=== PATIENT | male | born 1945 | race Caucasian/White ===

== ENCOUNTER 2023-05-18 09:19 | Inpatient (IN) | payer OTHER ==
--- OUTSIDE RECORDS SUMMARY | 2023-05-18 09:23 | XMS REPORT | Continuity of Care Document ---
:1945 Author Organization [facility] t Address [address] [place] [address] [place] [id number] Care Team Providers Name Role Phone [facility], [facility] Primary Care Physician Unavailable Irma Abreu MD Attending Clinician Mirian Attending Clinician Unavailable Karo Graff MA Attending Clinician Unavailable CRUZ MONTANO Attending Clinician Unavailable Cruz Montano MD Attending Clinician Jayce Ocampo Attending Clinician [phone] Mirian Admitting Clinician Unavailable CRUZ MONTANO Admitting Clinician Unavailable IRMA ABREU Admitting Clinician Unavailable Payers Payer Name Policy Type Policy Number Effective Date Expiration Date S romy AETNA (MEDICARE [id number] 2021 REPLACEMENT PPO) 00:00:00 AETNA MANAGED [id number] 2021 MEDICARE PPO-ANGEL 00:00:00 Problems Condition Condition Condition Status Onset Resolution Last Treating Co mments Source Name Details Category Date Date Treatment Clinician Date Chronic Chronic Problem Active 2020-09 [place] renal Renal 1-09 [facility] insufficie Insufficie 00:00: Ur ology ncy ncy 00 At risk of At Risk of Problem Active 2019-09 [place] osteoporos Osteoporos 0-07 Me tro is is 00:00: Urology 00 PAD PAD Disease Active [facility] (periphera (periphera 6-02 st l artery l artery 00:00: Hospit a disease) disease) 00 l Osteoporos Osteoporos Problem Active 2018-09 H singh is is 0-02 [facility] 00:00: Urology 00 Essential Essential Disease Active Met hodi hypertensi hypertensi 5-21 st on on 00:00: Hospita 00 l History of History of Disease Active 2016-09 M ethodi aortic aortic 0-24 st valve valve 00:00: Hospita replacemen replacemen 00 l t t Carotid Carotid Disease Active 2016-09 [facility] artery artery 0-24 st disease disease 00:00: Hospita 00 l Aortic Aortic Disease Active [facility] valve valve 4-04 st disorder disorder 00:00: Hospit a 00 l Stenosis Stenosis Disease Active [facility]o di of carotid of carotid 4-04 st artery artery 00:00: Hospita 00 l Hypertensi Hypertensi Problem Active 2015-09 H singh ve ve 0-10 [facility] disorder Disorder 00:00: Urolog y 00 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 [facility] prostate Prostate 00:00: Urolog y Genuine Genuine Problem Active [place] stress Stress 3-21 [facility] incontinen Incontinen 00:00: Ur ology ce ce 00 Allergies, Adverse Reactions, Alerts Allergy Allergy Status Severity Reaction(s) Onset Inactive Treating Comm ents Source Name Type Date Date Clinician Metformi Propensi Active Method i n ty to 4-04 st adverse 00:00: Hospita reaction 00 l s to drug METFORMI DRUG Active High Rash Univers N INGREDI 1-30 ity of 00:00: [place] 00 Medical Branch Metformi Propensi Active Shortness of Univers n ty to Breath 1-30 ity of adverse 00:00: [place] reaction 00 Medical s to Branch drug Metformi Allergy Active Severe Rash [place] n to [facility] substanc Urology e Family History Family Member Diagnosis Comments Start Date Stop Date Source Natural mother [facility] Social History Social Habit Start Date Stop Date Quantity Comments Source Exposure to Not sure University of SARS-CoV-2 (event) [facility] Sexual orientation [facility] History of Social 2022-12-14 2022-12-[address] function 00:00:00 00:00:00 Hospital Alcohol intake 2020-03-31 2020-03-31 Current [facility] 00:00:00 00:00:00 non-drinker of Hospital alcohol (finding) Tobacco use and 2018-01-30 2018-01-30 Smokeless [facility] exposure 00:00:00 00:00:00 tobacco non-user Hospital Sex Assigned At [birth year] [facility] 00:00:00 00:00:00 Hospital Smoking Status Start Date Stop Date Source Never smoked tobacco [facility] Medications Ordered Filled Start Stop Current Ordering Indication Dosage Frequency Signature Comments Components Source Medication Medication Date Date Medication? Clinician (SIG) Name Name simvastatin Yes [id number] TAKE 1 [facility] (ZOCOR) 40 9-[address] mg tablet 00:00: MOUTH Hospita 00 EVERY DAY l AT NIGHT metoprolol Yes TAKE 1/2 Met hodi tartrate 8-[address] (LOPRESSOR) 00:00: MOUTH Hospi ta 50 mg 00 TWICE A l tablet DAY WITH FOOD clopidogreL Yes TAKE 1 Meth lucia (PLAVIX) 75 6-[address] mg tablet 00:00: MOUTH Hospita 00 EVERY DAY l aspirin 0 Yes TAKE 1 [facility] (ECOTRIN) 6-[address] 81 MG 00:00: MOUTH Hospita enteric 00 EVERY DAY l coated tablet amLODIPine- Yes 1{capsu QD Take 1 M ethodi benazepriL 5-22 le} capsule by st (LOTREL) 00:00: mouth Hospita 5-40 mg per 00 daily. l capsule insulin Yes 60U Q.5D Inject 0.6 Meth lucia detemir 1-17 mL (60 st U-100 10:59: Units Hospita (LEVEMIR 28 total) l U-100 under the INSULIN) skin 2 100 unit/mL (two) injection times a day. cyanocobala Yes 1000ug Take 1 Me thodi min 1-[address] (VITAMIN 10:59: (1,000 mcg Hos fredrick B-12) 1000 28 total) by l MCG tablet mouth. triptorelin Yes 1{dose} Q180D Inject 1 [facility] pamoate 1-[address] 22.5 mg 10:59: the Hospita suspension 28 shoulder, l for thigh, or reconstitut buttocks ion every 6 (six) months. simvastatin 2021-09- No [id number] TAKE 1 [facility] (ZOCOR) 40 2-05 09-[address] mg tablet 00:00: 00:00 MOUTH Hospit a 00 :00 EVERY DAY l AT NIGHT metoprolol 2021-09- No TAKE 1/2 Me thodi tartrate 2- 08-[address] (LOPRESSOR) 00:00: 00:00 MOUTH Hosp belnida 50 mg 00 :00 TWICE A l tablet DAY WITH FOOD amLODIPine- 2021-09- No TAKE 1 Met hodi benazepriL 1-14 05-[address] (LOTREL) 00:00: 00:00 MOUTH Hospita 5-40 mg per 00 :00 EVERY DAY l capsule clopidogreL 2022- No TAKE 1 Met hodi (PLAVIX) 75 7-14 06-[address] mg tablet 00:00: 00:00 MOUTH Hospit a 00 :00 EVERY DAY l aspirin 2022- No TAKE 1 [facility] (ECOTRIN) 6-16 06-[address] 81 MG 00:00: 00:00 MOUTH Hospita enteric 00 :00 EVERY DAY l coated tablet amLODIPine- 2021- No TAKE 1 Met hodi benazepriL 5-17 11-[address] (LOTREL) 00:00: 00:00 MOUTH Hospita 5-40 mg per 00 :00 EVERY DAY l capsule barium 2021- No [id number] 680g 680 g, Unive rs sulfate 01-03- Oral, ity of (LIQUID E-Z 14:30: 15:45 ONCE, 1 [place] BEST) 60 % 00 :00 dose, On Medi cony (w/v) oral Mon Branch suspension 01/03/22 at 680 g 0930, Routine Lupron Lupron No Lupron [place] 45 mg [place] 45 mg 12-28 [place] 45 [facility] (6 Month) (6 Month) 08:29: mg (6 Ur ology intramuscul intramuscul 55 Month) ar syringe ar syringe intramuscu kitInject kitInject lar 45 mg by 45 mg by syringe intramuscul intramuscul kitInject ar route. ar route. 45 mg by intramuscu lar route. simvastatin 2020-09- No [id number] TAKE 1 [facility] (ZOCOR) 40 2-15 08-[address] mg tablet 00:00: 00:00 MOUTH Hospit a 00 :00 EVERY DAY l AT NIGHT metoprolol 2020-09- No TAKE 1/2 Me thodi tartrate 2-06 08-[address] (LOPRESSOR) 00:00: 00:00 MOUTH Hosp belinda 50 mg 00 :00 TWICE A l tablet DAY WITH FOOD celecoxib 2016-09 Yes 200mg Take 1 Unive rs (CELEBREX) 1-20 capsule by ity of 200 mg 00:00: mouth [place] capsule 00 daily. Medical Branch celecoxib 2016-09 Yes 200mg Take 1 Unive rs (CELEBREX) 1-20 capsule by ity of 200 mg 00:00: mouth [place] capsule 00 daily. Medical Branch brimonidine 2016-09 Yes INSTILL 1 U nivers 0.2 % 0-21 DROP INTO ity of ophthalmic 00:00: BOTH EYES [place] solution 00 AT BEDTIME Medic al Branch brimonidine 2016-09 Yes INSTILL 1 U nivers 0.2 % 0-21 DROP INTO ity of ophthalmic 00:00: BOTH EYES [place] solution 00 AT BEDTIME Medic al Branch alendronate 2016-09 Yes TAKE 1 Univ ers 70 mg 0-11 TABLET BY ity of tablet 00:00: MOUTH [place] 00 EVERY WEEK Medical Branch alendronate 2016-09 Yes TAKE 1 Univ ers 70 mg 0-11 TABLET BY ity of tablet 00:00: MOUTH [place] 00 EVERY WEEK Medical Branch flu vaccine 2016-09 Yes INJECT 1 Un janeth 64 yrs and 0-09 DOSE BY ity of up 180 00:00: [facility] [place] mcg/0.5 mL 00 Medical syringe Branch BD 2016-09 Yes 10mg Take 10 mg Univers ULTRAFINE 0-09 by mouth. ity o f III MINI 00:00: [place] PEN 31 00 Medical gauge x Branch 316" Ndle flu vaccine 2016-09 Yes INJECT 1 Un janeth 64 yrs and 0-09 DOSE BY ity of up 180 00:00: RPH [place] mcg/0.5 mL 00 Medical syringe Branch BD 2016-09 Yes 10mg Take 10 mg Univers ULTRAFINE 0-09 by mouth. ity o f III MINI 00:00: [place] PEN 31 00 Medical gauge x Branch 3/16" Ndle latanoprost Yes INSTILL Met hodi (XALATAN) 2-[address] 0.005 % 00:00: IN BOTH Hospita ophthalmic 00 EYES AT solution BEDTIME amlodipine- Yes 1{capsu Take 1 U nivers benazepril 2-01 le} capsule by ity of 5-40 mg per 09:13: mouth [place] capsule 12 daily. Medical Branch clopidogrel Yes 75mg Take 75 mg Univers 75 mg 2-01 by mouth ity of tablet 09:13: daily. [place] [address] Medical Branch metoprolol Yes 25mg Take 25 mg U nivers tartrate 50 2-01 by mouth 2 it y of mg tablet 09:13: (two) [place] [address] times Medical daily. Branch simvastatin Yes 40mg Take 40 mg Univers 40 mg 2-01 by mouth ity of tablet 09:13: at [place] [address] bedtime. Medical Branch aspirin 81 Yes 81mg Take 81 mg U nivers mg EC 2-01 by mouth ity of tablet 09:13: daily. [place] [address] Medical Branch lubiproston Yes 8ug Take 8 mcg Univers e 8 mcg 2-01 by mouth ity of capsule 09:13: daily. [place] [address] Medical Branch latanoprost Yes 1[drp] Place 1 U nivers 0.005 % 2-01 Drop in ity of ophthalmic 09:13: both eyes [place] drops 12 every Medical evening. Branch brinzolamid Yes 1[drp] Place 1 U nivers e-brimonidi 2-01 Drop in ity o f ne 1-0.2 % 09:13: each eye [place] ophthalmic 12 daily. Medical drops Branch vitamin Yes 1000ug Take 1,000 Un janeth B-12 2-01 mcg by ity of (VITAMIN 09:13: mouth [place] B-12) 1,000 12 daily. Medica l mcg tablet Branch Liraglutide Yes 1.8mg inject 1.8 Univers (VICTOZA 2-01 mg under ity of 3-ANGELIA) 0.6 09:13: the skin [place] as mg/0.1 mL 12 daily. Medical (18 mg/3 Branch mL) injection insulin Yes 25U inject 25 Unive rs detemir 2-01 Units ity of (LEVEMIR) 09:13: under the [place] as 100 unit/mL 12 skin 2 Medica l injection (two) Branch times daily. Triptorelin Yes 1{dose} 1 Dose by Univers Pamoate 2-01 Intramuscu ity of (TRELSTAR) 09:13: lar route [place] 22.5 mg/2 12 once now. Medic al mL Syrg Indication Branch s: Pt takes once every 6 months amlodipine- Yes 1{capsu Take 1 U nivers benazepril 2-01 le} capsule by ity of 5-40 mg per 09:13: mouth [place] capsule 12 daily. Medical Branch clopidogrel Yes 75mg Take 75 mg Univers 75 mg 2-01 by mouth ity of tablet 09:13: daily. [place] [address] Medical Branch metoprolol Yes 25mg Take 25 mg U nivers tartrate 50 2-01 by mouth 2 it y of mg tablet 09:13: (two) [place] 12 times Medical daily. Branch simvastatin Yes 40mg Take 40 mg Univers 40 mg 2-01 by mouth ity of tablet 09:13: at [place] [address] bedtime. Medical Branch aspirin 81 Yes 81mg Take 81 mg U nivers mg EC 2-01 by mouth ity of tablet 09:13: daily. [place] [address] Medical Branch lubiproston Yes 8ug Take 8 mcg Univers e 8 mcg 2-01 by mouth ity of capsule 09:13: daily. [place] [address] Medical Branch latanoprost Yes 1[drp] Place 1 U nivers 0.005 % 2-01 Drop in ity of ophthalmic 09:13: both eyes [place] drops 12 every Medical evening. Branch brinzolamid Yes 1[drp] Place 1 U nivers e-brimonidi 2-01 Drop in ity o f ne 1-0.2 % 09:13: each eye [place] as ophthalmic 12 daily. Medical drops Branch vitamin Yes 1000ug Take 1,000 Un janeth B-12 2-01 mcg by ity of (VITAMIN 09:13: mouth [place] B-12) 1,000 12 daily. Medica l mcg tablet Branch Liraglutide Yes 1.8mg inject 1.8 Univers (VICTOZA 2-01 mg under ity of 3-ANGELIA) 0.6 09:13: the skin [place] as mg/0.1 mL 12 daily. Medical (18 mg/3 Branch mL) injection insulin Yes 25U inject 25 Unive rs detemir 2-01 Units ity of (LEVEMIR) 09:13: under the [place] as 100 unit/mL 12 skin 2 Medica l injection (two) Branch times daily. Triptorelin Yes 1{dose} 1 Dose by Univers Pamoate 2-01 Intramuscu ity of (TRELSTAR) 09:13: lar route [place] 22.5 mg/2 12 once now. Medic al mL Syrg Indication Branch s: Pt takes once every 6 months VICTOZA Yes INJECT Methodi 3-ANGELIA 0.6 1-[address] mg/0.1 mL 00:00: SKIN 1.2MG Ho spita (18 mg/3 00 DAILY l mL) pen injector alendronate alendronate No 1 Q1W alendronat [place] 70 mg 70 mg e 70 mg [facility] tablet Take tablet Take tablet Urology 1 tablet 1 tablet Take 1 every week every week tablet by oral by oral every week route. route. by oral route. amlodipine amlodipine No amlodipine [place] 5 5 5 [facility] mg-benazepr mg-benazepr mg-benazep Urology il 40 mg il 40 mg ril 40 mg capsule capsule capsule TAKE 1 TAKE 1 TAKE 1 CAPSULE BY CAPSULE BY CAPSULE BY MOUTH EVERY MOUTH EVERY MOUTH DAY DAY EVERY DAY aspirin 81 aspirin 81 No aspirin 81 [place] mg mg mg [facility] tablet,vish tablet,vish tablet,del Urology yed release yed release ayed TAKE 1 TAKE 1 release TABLET BY TABLET BY TAKE 1 MOUTH EVERY MOUTH EVERY TABLET BY DAY DAY MOUTH EVERY DAY clopidogrel clopidogrel No clopidogre [place] 75 mg 75 mg l 75 mg [facility] tablet TAKE tablet TAKE tablet Urology 1 TABLET BY 1 TABLET BY TAKE 1 MOUTH EVERY MOUTH EVERY TABLET BY DAY DAY MOUTH EVERY DAY insulin insulin No 60unit( BID insulin [place] ston glargine glargine s) glargine Met ro (U-100) 100 (U-100) 100 (U-100) Urology unit/mL (3 unit/mL (3 100 mL) mL) unit/mL (3 subcutaneou subcutaneou mL) s pen s pen subcutaneo Inject 60 Inject 60 us pen units twice units twice Inject 60 a day by a day by units subcutaneou subcutaneou twice a s route. s route. day by subcutaneo us route. latanoprost latanoprost No latanopros [place] 0.005 % eye 0.005 % eye t 0.005 % [facility] drops drops eye drops Urology INSTILL 1 INSTILL 1 INSTILL 1 DROP INTO DROP INTO DROP INTO BOTH EYES BOTH EYES BOTH EYES AT BEDTIME AT BEDTIME AT BEDTIME lorazepam 1 lorazepam 1 No lorazepam [place] mg tablet mg tablet 1 mg [facility] tablet Urology Lupron Lupron No 45mg Lupron [place] 45 mg [place] 45 mg [place] 45 [facility] (6 Month) (6 Month) mg (6 Urol ogy intramuscul intramuscul Month) ar syringe ar syringe intramuscu kit Inject kit Inject lar 45 mg by 45 mg by syringe intramuscul intramuscul kit Inject ar route. ar route. 45 mg by intramuscu lar route. metoprolol metoprolol No metoprolol [place] tartrate 50 tartrate 50 tartrate [facility] mg tablet mg tablet 50 mg Urol ogy TAKE 1/2 TAKE 1/2 tablet TABLET BY TABLET BY TAKE 1/2 MOUTH TWICE MOUTH TWICE TABLET BY A DAY WITH A DAY WITH MOUTH FOOD FOOD TWICE A DAY WITH FOOD simvastatin simvastatin No simvastati [place] 40 mg 40 mg n 40 mg [facility] tablet TAKE tablet TAKE tablet Urology 1 TABLET BY 1 TABLET BY TAKE 1 MOUTH EVERY MOUTH EVERY TABLET BY DAY AT DAY AT MOUTH NIGHT NIGHT EVERY DAY AT NIGHT sodium sodium No sodium [place] fluoride fluoride fluoride Met ro 1.1 % 1.1 % 1.1 % Urology dental dental dental paste paste paste TRUEplus TRUEplus No TRUEplus [place] ston Lancets 33 Lancets 33 Lancets 33 [facility] gauge USE 1 gauge USE 1 gauge USE Urology EVERY DAY EVERY DAY 1 EVERY DAY Victoza Victoza No Victoza [place] 2-Angelia 0.6 2-Angelia 0.6 2-Angelia 0.6 [facility] mg/0.1 mL mg/0.1 mL mg/0.1 mL Urology (18 mg/3 (18 mg/3 (18 mg/3 mL) mL) mL) subcutaneou subcutaneou subcutaneo s pen s pen us pen injector injector injector INJECT 1.2 INJECT 1.2 INJECT 1.2 MG UNDER MG UNDER MG UNDER THE SKIN THE SKIN THE SKIN ONCE DAILY ONCE DAILY ONCE DAILY alendronate alendronate No alendronat [place] 70 mg 70 mg e 70 mg [facility] tablet TAKE tablet TAKE tablet Urology 1 TABLET BY 1 TABLET BY TAKE 1 MOUTH EVERY MOUTH EVERY TABLET BY WEEK WEEK MOUTH EVERY WEEK amlodipine amlodipine No amlodipine [place] 5 mg tablet 5 mg tablet 5 mg M etro TAKE 1 TAKE 1 tablet Urology TABLET BY TABLET BY TAKE 1 MOUTH EVERY MOUTH EVERY TABLET BY DAY IN THE DAY IN THE MOUTH MORNING MORNING EVERY DAY IN THE MORNING amlodipine amlodipine No amlodipine [place] 5 5 5 [facility] mg-benazepr mg-benazepr mg-benazep Urology il 40 mg il 40 mg ril 40 mg capsule capsule capsule TAKE 1 TAKE 1 TAKE 1 CAPSULE BY CAPSULE BY CAPSULE BY MOUTH EVERY MOUTH EVERY MOUTH DAY DAY EVERY DAY aspirin 81 aspirin 81 No aspirin 81 [place] mg mg mg [facility] tablet,vish tablet,vish tablet,del Urology yed release yed release ayed TAKE 1 TAKE 1 release TABLET BY TABLET BY TAKE 1 MOUTH EVERY MOUTH EVERY TABLET BY DAY DAY MOUTH EVERY DAY clopidogrel clopidogrel No clopidogre [place] 75 mg 75 mg l 75 mg [facility] tablet TAKE tablet TAKE tablet Urology 1 TABLET BY 1 TABLET BY TAKE 1 MOUTH EVERY MOUTH EVERY TABLET BY DAY DAY MOUTH EVERY DAY Farxiga 5 Farxiga 5 No 1 Q1D Farxiga 5 [place] mg tablet mg tablet mg tablet [facility] Take 1 Take 1 Take 1 Urology tablet tablet tablet every day every day every day by oral by oral by oral route. route. route. insulin insulin No 30unit( BID insulin [place] ston glargine glargine s) glargine Met ro (U-100) 100 (U-100) 100 (U-100) Urology unit/mL (3 unit/mL (3 100 mL) mL) unit/mL (3 subcutaneou subcutaneou mL) s pen s pen subcutaneo Inject 30 Inject 30 us pen units twice units twice Inject 30 a day by a day by units subcutaneou subcutaneou twice a s route. s route. day by subcutaneo us route. latanoprost latanoprost No latanopros [place] 0.005 % eye 0.005 % eye t 0.005 % [facility] drops drops eye drops Urology INSTILL 1 INSTILL 1 INSTILL 1 DROP INTO DROP INTO DROP INTO BOTH EYES BOTH EYES BOTH EYES AT BEDTIME AT BEDTIME AT BEDTIME lorazepam 1 lorazepam 1 No lorazepam [place] mg tablet mg tablet 1 mg [facility] tablet Urology Lupron Lupron No 45mg Lupron [place] 45 mg [place] 45 mg [place] 45 [facility] (6 Month) (6 Month) mg (6 Urol ogy intramuscul intramuscul Month) ar syringe ar syringe intramuscu kit Inject kit Inject lar 45 mg by 45 mg by syringe intramuscul intramuscul kit Inject ar route. ar route. 45 mg by intramuscu lar route. metoprolol metoprolol No metoprolol [place] tartrate 50 tartrate 50 tartrate [facility] mg tablet mg tablet 50 mg Urol ogy TAKE 1/2 TAKE 1/2 tablet TABLET BY TABLET BY TAKE 1/2 MOUTH TWICE MOUTH TWICE TABLET BY A DAY WITH A DAY WITH MOUTH FOOD FOOD TWICE A DAY WITH FOOD OneTouch OneTouch No OneTouch [place] UltraSoft UltraSoft UltraSoft [place] Lancets Lancets Lancets Urolog y TEST BLOOD TEST BLOOD TEST BLOOD SUGAR TWICE SUGAR TWICE SUGAR A DAY A DAY TWICE A DAY OneTouch OneTouch No OneTouch [place] st[place] Verio test Verio test Verio test [facility] strips TEST strips TEST strips Urology TWICE A DAY TWICE A DAY TEST TWICE A DAY Ozempic Ozempic No .5mg Q1W Ozempic [place] 0.25 mg or 0.25 mg or 0.25 mg or [facility] 0.5 mg (2 0.5 mg (2 0.5 mg (2 Urology mg/1.5 mL) mg/1.5 mL) mg/1.5 mL) subcutaneou subcutaneou subcutaneo s pen s pen us pen injector injector injector Inject 0.5 Inject 0.5 Inject 0.5 mg every mg every mg every week by week by week by subcutaneou subcutaneou subcutaneo s route. s route. us route. simvastatin simvastatin No simvastati [place] 40 mg 40 mg n 40 mg [place] tablet TAKE tablet TAKE tablet Urology 1 TABLET BY 1 TABLET BY TAKE 1 MOUTH EVERY MOUTH EVERY TABLET BY DAY AT DAY AT MOUTH NIGHT NIGHT EVERY DAY AT NIGHT TRUEplus TRUEplus No TRUEplus [place] Lancets 33 Lancets 33 Lancets 33 [facility] gauge USE 1 gauge USE 1 gauge USE Urology EVERY DAY EVERY DAY 1 EVERY DAY Uloric 40 Uloric 40 No 1 Q1D [facility] 40 [place] mg tablet mg tablet mg tablet [facility] Take 1 Take 1 Take 1 Urology tablet tablet tablet every day every day every day by oral by oral by oral route. route. route. alendronate alendronate No alendronat [place] 70 mg 70 mg e 70 mg [facility] tablet TAKE tablet TAKE tablet Urology 1 TABLET BY 1 TABLET BY TAKE 1 MOUTH ONE MOUTH ONE TABLET BY TIME PER TIME PER MOUTH ONE WEEK WEEK TIME PER WEEK amlodipine amlodipine No amlodipine [place] 5 5 5 [facility] mg-benazepr mg-benazepr mg-benazep Urology il 40 mg il 40 mg ril 40 mg capsule capsule capsule TAKE 1 TAKE 1 TAKE 1 CAPSULE BY CAPSULE BY CAPSULE BY MOUTH EVERY MOUTH EVERY MOUTH DAY DAY EVERY DAY aspirin 81 aspirin 81 No aspirin 81 [place] mg mg mg [facility] tablet,vish tablet,vish tablet,del Urology yed release yed release ayed TAKE 1 TAKE 1 release TABLET BY TABLET BY TAKE 1 MOUTH EVERY MOUTH EVERY TABLET BY DAY DAY MOUTH EVERY DAY clopidogrel clopidogrel No clopidogre [place] 75 mg 75 mg l 75 mg [facility] tablet TAKE tablet TAKE tablet Urology 1 TABLET BY 1 TABLET BY TAKE 1 MOUTH EVERY MOUTH EVERY TABLET BY DAY DAY MOUTH EVERY DAY erythromyci erythromyci No erythromyc [place] n 5 mg/gram n 5 mg/gram in 5 M etro (0.5 %) eye (0.5 %) eye mg/gram Urology ointment ointment (0.5 %) APPLY AT APPLY AT eye BEDTIME FOR BEDTIME FOR ointment 1 WEEK TO 1 WEEK TO APPLY AT EYELIDS EYELIDS BEDTIME FOR 1 WEEK TO EYELIDS famotidine famotidine No famotidine [place] 40 mg 40 mg 40 mg [facility] tablet TAKE tablet TAKE tablet Urology 1 TABLET BY 1 TABLET BY TAKE 1 MOUTH EVERY MOUTH EVERY TABLET BY DAY IN THE DAY IN THE MOUTH MORNING MORNING EVERY DAY IN THE MORNING insulin insulin No 30unit( BID insulin [place] glargine glargine s) glargine Met ro (U-100) 100 (U-100) 100 (U-100) Urology unit/mL (3 unit/mL (3 100 mL) mL) unit/mL (3 subcutaneou subcutaneou mL) s pen s pen subcutaneo Inject 30 Inject 30 us pen units twice units twice Inject 30 a day by a day by units subcutaneou subcutaneou twice a s route. s route. day by subcutaneo us route. latanoprost latanoprost No latanopros [place] 0.005 % eye 0.005 % eye t 0.005 % [facility] drops drops eye drops Urology INSTILL 1 INSTILL 1 INSTILL 1 DROP INTO DROP INTO DROP INTO BOTH EYES BOTH EYES BOTH EYES AT BEDTIME AT BEDTIME AT BEDTIME lorazepam 1 lorazepam 1 No lorazepam [place] mg tablet mg tablet 1 mg [facility] tablet Urology Lupron Lupron No 45mg Lupron [place] 45 mg [place] 45 mg [place] 45 [facility] (6 Month) (6 Month) mg (6 Urol ogy intramuscul intramuscul Month) ar syringe ar syringe intramuscu kit Inject kit Inject lar 45 mg by 45 mg by syringe intramuscul intramuscul kit Inject ar route. ar route. 45 mg by intramuscu lar route. metoprolol [facility] [place] tartrate 50 tartrate 50 tartrate [facility] mg tablet mg tablet 50 mg Urol ogy TAKE 1/2 TAKE 1/2 tablet TABLET BY TABLET BY TAKE 1/2 MOUTH TWICE MOUTH TWICE TABLET BY A DAY WITH A DAY WITH MOUTH FOOD FOOD TWICE A DAY WITH FOOD OneTouch OneTouch No OneTouch [place] UltraSoft UltraSoft UltraSoft [place] Lancets Lancets Lancets Urolog y TEST BLOOD TEST BLOOD TEST BLOOD SUGAR TWICE SUGAR TWICE SUGAR A DAY A DAY TWICE A DAY OneTouch OneTouch No OneTouch [place] st[place] Verio test Verio test Verio test [facility] strips TEST strips TEST strips Urology TWICE A DAY TWICE A DAY TEST TWICE A DAY Ozempic Ozempic No .5mg Q1W Ozempic [place] 0.25 mg or 0.25 mg or 0.25 mg or [facility] 0.5 mg (2 0.5 mg (2 0.5 mg (2 Urology mg/1.5 mL) mg/1.5 mL) mg/1.5 mL) subcutaneou subcutaneou subcutaneo s pen s pen us pen injector injector injector Inject 0.5 Inject 0.5 Inject 0.5 mg every mg every mg every week by week by week by subcutaneou subcutaneou subcutaneo s route. s route. us route. QuickVue QuickVue No QuickVue [place] ston At-Home At-Home At-Home [facility] COVID-19 COVID-19 COVID-19 Uro logy Test kit Test kit Test kit USE USE USE DIRECTED DIRECTED DIRECTED simvastatin simvastatin No simvastati [place] 40 mg 40 mg n 40 mg [facility] tablet TAKE tablet TAKE tablet Urology 1 TABLET BY 1 TABLET BY TAKE 1 MOUTH EVERY MOUTH EVERY TABLET BY DAY AT DAY AT MOUTH NIGHT NIGHT EVERY DAY AT NIGHT sodium sodium No sodium [place] fluoride fluoride fluoride Met ro 1.1 % 1.1 % 1.1 % Urology dental dental dental paste BRUSH paste BRUSH paste FOR 1 MIN FOR 1 MIN BRUSH FOR AND RINCE AND RINCE 1 MIN AND TWICE DAILY TWICE DAILY RINCE TWICE DAILY TRUEplus TRUEplus No TRUEplus [place] Lancets 33 Lancets 33 Lancets 33 [facility] gauge USE 1 gauge USE 1 gauge USE Urology EVERY DAY EVERY DAY 1 EVERY DAY Uloric 40 Uloric 40 No 1 Q1D Uloric 40 [place] mg tablet mg tablet mg tablet [facility] Take 1 Take 1 Take 1 Urology tablet tablet tablet every day every day every day by oral by oral by oral route. route. route. alendronate alendronate No 1 Q1W alendronat [place] 70 mg 70 mg e 70 mg [facility] tablet Take tablet Take tablet Urology 1 tablet 1 tablet Take 1 every week every week tablet by oral by oral every week route. route. by oral route. amlodipine amlodipine No amlodipine [place] 5 5 5 [facility] mg-benazepr mg-benazepr mg-benazep Urology il 40 mg il 40 mg ril 40 mg capsule capsule capsule TAKE 1 TAKE 1 TAKE 1 CAPSULE BY CAPSULE BY CAPSULE BY MOUTH EVERY MOUTH EVERY MOUTH DAY DAY EVERY DAY aspirin 81 aspirin 81 No aspirin 81 [place] mg mg mg [facility] tablet,vish tablet,vish tablet,del Urology yed release yed release ayed TAKE 1 TAKE 1 release TABLET BY TABLET BY TAKE 1 MOUTH EVERY MOUTH EVERY TABLET BY DAY DAY MOUTH EVERY DAY clopidogrel clopidogrel No clopidogre [place] 75 mg 75 mg l 75 mg [facility] tablet TAKE tablet TAKE tablet Urology 1 TABLET BY 1 TABLET BY TAKE 1 MOUTH EVERY MOUTH EVERY TABLET BY DAY DAY MOUTH EVERY DAY Eligard 45 Eligard 45 No 45mg Eligard 45 [place] mg (6 mg (6 mg (6 [facility] month) month) month) Urology subcutaneou subcutaneou subcutaneo s syringe s syringe us syringe Inject 45 Inject 45 Inject 45 mg by mg by mg by subcutaneou subcutaneou subcutaneo s route. s route. us route. famotidine famotidine No famotidine [place] 40 mg 40 mg 40 mg [facility] tablet TAKE tablet TAKE tablet Urology 1 TABLET BY 1 TABLET BY TAKE 1 MOUTH EVERY MOUTH EVERY TABLET BY DAY IN THE DAY IN THE MOUTH MORNING MORNING EVERY DAY IN THE MORNING insulin insulin No 30unit( BID insulin Hector ston glargine glargine s) glargine Met ro (U-100) 100 (U-100) 100 (U-100) Urology unit/mL (3 unit/mL (3 100 mL) mL) unit/mL (3 subcutaneou subcutaneou mL) s pen s pen subcutaneo Inject 30 Inject 30 us pen units twice units twice Inject 30 a day by a day by units subcutaneou subcutaneou twice a s route. s route. day by subcutaneo us route. latanoprost latanoprost No latanopros [place] 0.005 % eye 0.005 % eye t 0.005 % [facility] drops drops eye drops Urology INSTILL 1 INSTILL 1 INSTILL 1 DROP INTO DROP INTO DROP INTO BOTH EYES BOTH EYES BOTH EYES AT BEDTIME AT BEDTIME AT BEDTIME metoprolol metoprolol No metoprolol [place] tartrate 50 tartrate 50 tartrate [facility] mg tablet mg tablet 50 mg Urol ogy TAKE 1/2 TAKE 1/2 tablet TABLET BY TABLET BY TAKE 1/2 MOUTH TWICE MOUTH TWICE TABLET BY A DAY WITH A DAY WITH MOUTH FOOD FOOD TWICE A DAY WITH FOOD OneTouch OneTouch No OneTouch Hector ston UltraSoft UltraSoft UltraSoft [facility] Lancets Lancets Lancets Urolog y TEST BLOOD TEST BLOOD TEST BLOOD SUGAR TWICE SUGAR TWICE SUGAR A DAY A DAY TWICE A DAY OneTouch OneTouch No OneTouch [place] ston Verio test Verio test Verio test [facility] strips TEST strips TEST strips Urology TWICE A DAY TWICE A DAY TEST TWICE A DAY Ozempic Ozempic No .5mg Q1W Ozempic [place] 0.25 mg or 0.25 mg or 0.25 mg or [facility] 0.5 mg (2 0.5 mg (2 0.5 mg (2 Urology mg/1.5 mL) mg/1.5 mL) mg/1.5 mL) subcutaneou subcutaneou subcutaneo s pen s pen us pen injector injector injector Inject 0.5 Inject 0.5 Inject 0.5 mg every mg every mg every week by week by week by subcutaneou subcutaneou subcutaneo s route. s route. us route. simvastatin simvastatin No simvastati [place] 40 mg 40 mg n 40 mg [facility] tablet TAKE tablet TAKE tablet Urology 1 TABLET BY 1 TABLET BY TAKE 1 MOUTH EVERY MOUTH EVERY TABLET BY DAY AT DAY AT MOUTH NIGHT NIGHT EVERY DAY AT NIGHT sodium sodium No sodium [place] fluoride fluoride fluoride Met ro 1.1 % 1.1 % 1.1 % Urology dental dental dental paste BRUSH paste BRUSH paste FOR 1 MIN FOR 1 MIN BRUSH FOR AND RINCE AND RINCE 1 MIN AND TWICE DAILY TWICE DAILY RINCE TWICE DAILY TRUEplus TRUEplus No TRUEplus H[place] ston Lancets 33 Lancets 33 Lancets 33 [facility] gauge USE 1 gauge USE 1 gauge USE Urology EVERY DAY EVERY DAY 1 EVERY DAY Vyzulta Vyzulta No Vyzulta [place] 0.024 % eye 0.024 % eye 0.024 % [facility] drops drops eye drops Urology INSTILL 1 INSTILL 1 INSTILL 1 DROP INTO DROP INTO DROP INTO RIGHT EYE RIGHT EYE RIGHT EYE AT BEDTIME AT BEDTIME AT BEDTIME alendronate alendronate No 1 Q1W alendronat [place] 70 mg 70 mg e 70 mg [facility] tablet Take tablet Take tablet Urology 1 tablet 1 tablet Take 1 every week every week tablet by oral by oral every week route. route. by oral route. amlodipine amlodipine No amlodipine [place] 5 5 5 [facility] mg-benazepr mg-benazepr mg-benazep Urology il 40 mg il 40 mg ril 40 mg capsule capsule capsule TAKE 1 TAKE 1 TAKE 1 CAPSULE BY CAPSULE BY CAPSULE BY MOUTH EVERY MOUTH EVERY MOUTH DAY DAY EVERY DAY aspirin 81 aspirin 81 No aspirin 81 [place] mg mg mg [facility] tablet,vish tablet,vish tablet,del Urology yed release yed release ayed TAKE 1 TAKE 1 release TABLET BY TABLET BY TAKE 1 MOUTH EVERY MOUTH EVERY TABLET BY DAY DAY MOUTH EVERY DAY clopidogrel clopidogrel No clopidogre [place] 75 mg 75 mg l 75 mg [facility] tablet TAKE tablet TAKE tablet Urology 1 TABLET BY 1 TABLET BY TAKE 1 MOUTH EVERY MOUTH EVERY TABLET BY DAY DAY MOUTH EVERY DAY erythromyci erythromyci No erythromyc [place] n 5 mg/gram n 5 mg/gram in 5 M etro (0.5 %) eye (0.5 %) eye mg/gram Urology ointment ointment (0.5 %) eye ointment insulin insulin No 60unit( BID insulin [place] ston glargine glargine s) glargine Met ro (U-100) 100 (U-100) 100 (U-100) Urology unit/mL (3 unit/mL (3 100 mL) mL) unit/mL (3 subcutaneou subcutaneou mL) s pen s pen subcutaneo Inject 60 Inject 60 us pen units twice units twice Inject 60 a day by a day by units subcutaneou subcutaneou twice a s route. s route. day by subcutaneo us route. latanoprost latanoprost No latanopros [place] 0.005 % eye 0.005 % eye t 0.005 % [facility] drops drops eye drops Urology INSTILL 1 INSTILL 1 INSTILL 1 DROP INTO DROP INTO DROP INTO BOTH EYES BOTH EYES BOTH EYES AT BEDTIME AT BEDTIME AT BEDTIME Lupron Lupron No 45mg Lupron [place] 45 mg [place] 45 mg [place] 45 Metro (6 Month) (6 Month) mg (6 Urol ogy intramuscul intramuscul Month) ar syringe ar syringe intramuscu kit Inject kit Inject lar 45 mg by 45 mg by syringe intramuscul intramuscul kit Inject ar route. ar route. 45 mg by intramuscu lar route. metoprolol metoprolol No metoprolol [place] tartrate 50 tartrate 50 tartrate [facility] mg tablet mg tablet 50 mg Urol ogy TAKE 1/2 TAKE 1/2 tablet TABLET BY TABLET BY TAKE 1/2 MOUTH TWICE MOUTH TWICE TABLET BY A DAY WITH A DAY WITH MOUTH FOOD FOOD TWICE A DAY WITH FOOD simvastatin simvastatin No simvastati [place] 40 mg 40 mg n 40 mg [facility] tablet TAKE tablet TAKE tablet Urology 1 TABLET BY 1 TABLET BY TAKE 1 MOUTH EVERY MOUTH EVERY TABLET BY DAY AT DAY AT MOUTH NIGHT NIGHT EVERY DAY AT NIGHT TRUEplus TRUEplus No TRUEplus H[place] st[place] Lancets 33 Lancets 33 Lancets 33 [facility] gauge USE 1 gauge USE 1 gauge USE Urology EVERY DAY EVERY DAY 1 EVERY DAY Victoza Victoza No Victoza [place] 2-Angelia 0.6 2-Angelia 0.6 2-Angelia 0.6 [facility] mg/0.1 mL mg/0.1 mL mg/0.1 mL Urology (18 mg/3 (18 mg/3 (18 mg/3 mL) mL) mL) subcutaneou subcutaneou subcutaneo s pen s pen us pen injector injector injector INJECT 1.2 INJECT 1.2 INJECT 1.2 MG UNDER MG UNDER MG UNDER THE SKIN THE SKIN THE SKIN ONCE DAILY ONCE DAILY ONCE DAILY alendronate alendronate No 1 Q1W alendronat [place] 70 mg 70 mg e 70 mg [facility] tablet Take tablet Take tablet Urology 1 tablet 1 tablet Take 1 every week every week tablet by oral by oral every week route. route. by oral route. amlodipine amlodipine No amlodipine [place] 5 5 5 [facility] mg-benazepr mg-benazepr mg-benazep Urology il 40 mg il 40 mg ril 40 mg capsule capsule capsule TAKE 1 TAKE 1 TAKE 1 CAPSULE BY CAPSULE BY CAPSULE BY MOUTH EVERY MOUTH EVERY MOUTH DAY DAY EVERY DAY aspirin 81 aspirin 81 No aspirin 81 [place] mg mg mg [facility] tablet,vish tablet,vish tablet,del Urology yed release yed release ayed TAKE 1 TAKE 1 release TABLET BY TABLET BY TAKE 1 MOUTH EVERY MOUTH EVERY TABLET BY DAY DAY MOUTH EVERY DAY clopidogrel clopidogrel No clopidogre [place] 75 mg 75 mg l 75 mg [facility] tablet TAKE tablet TAKE tablet Urology 1 TABLET BY 1 TABLET BY TAKE 1 MOUTH EVERY MOUTH EVERY TABLET BY DAY DAY MOUTH EVERY DAY hydrocodone hydrocodone No hydrocodon [place] 5 5 e 5 [facility] mg-acetamin mg-acetamin mg-acetami Urology ophen 325 ophen 325 nophen 325 mg tablet mg tablet mg tablet insulin insulin No 60unit( BID insulin H[place] ston glargine glargine s) glargine Met ro (U-100) 100 (U-100) 100 (U-100) Urology unit/mL (3 unit/mL (3 100 mL) mL) unit/mL (3 subcutaneou subcutaneou mL) s pen s pen subcutaneo Inject 60 Inject 60 us pen units twice units twice Inject 60 a day by a day by units subcutaneou subcutaneou twice a s route. s route. day by subcutaneo us route. latanoprost latanoprost No latanopros [place] 0.005 % eye 0.005 % eye t 0.005 % [facility] drops drops eye drops Urology INSTILL 1 INSTILL 1 INSTILL 1 DROP INTO DROP INTO DROP INTO BOTH EYES BOTH EYES BOTH EYES AT BEDTIME AT BEDTIME AT BEDTIME lorazepam 1 lorazepam 1 No lorazepam [place] mg tablet mg tablet 1 mg [facility] tablet Urology Lupron Lupron No 45mg Lupron [place] 45 mg [place] 45 mg [place] 45 Metro (6 Month) (6 Month) mg (6 Urol ogy intramuscul intramuscul Month) ar syringe ar syringe intramuscu kit Inject kit Inject lar 45 mg by 45 mg by syringe intramuscul intramuscul kit Inject ar route. ar route. 45 mg by intramuscu lar route. metoprolol metoprolol No metoprolol [place] tartrate 50 tartrate 50 tartrate [facility] mg tablet mg tablet 50 mg Urol ogy TAKE 1/2 TAKE 1/2 tablet TABLET BY TABLET BY TAKE 1/2 MOUTH TWICE MOUTH TWICE TABLET BY A DAY WITH A DAY WITH MOUTH FOOD FOOD TWICE A DAY WITH FOOD simvastatin simvastatin No simvastati [place] 40 mg 40 mg n 40 mg [facility] tablet TAKE tablet TAKE tablet Urology 1 TABLET BY 1 TABLET BY TAKE 1 MOUTH EVERY MOUTH EVERY TABLET BY DAY AT DAY AT MOUTH NIGHT NIGHT EVERY DAY AT NIGHT sodium sodium No sodium [place] fluoride fluoride fluoride Met ro 1.1 % 1.1 % 1.1 % Urology dental dental dental paste paste paste TRUEplus TRUEplus No TRUEplus Hector ston Lancets 33 Lancets 33 Lancets 33 [facility] gauge USE 1 gauge USE 1 gauge USE Urology EVERY DAY EVERY DAY 1 EVERY DAY Victoza Victoza No Victoza [place] 2-Angelia 0.6 2-Angelia 0.6 2-Angelia 0.6 [facility] mg/0.1 mL mg/0.1 mL mg/0.1 mL Urology (18 mg/3 (18 mg/3 (18 mg/3 mL) mL) mL) subcutaneou subcutaneou subcutaneo s pen s pen us pen injector injector injector INJECT 1.2 INJECT 1.2 INJECT 1.2 MG UNDER MG UNDER MG UNDER THE SKIN THE SKIN THE SKIN ONCE DAILY ONCE DAILY ONCE DAILY Immunizations Ordered Immunization Filled Immunization Date Status Commen ts Source Name Name [employer]-19 MRNA 2021-06-15 Completed [facility]ist VACCINATION 00:00:00 [facility] [employer] COVID-19 MRNA 2020-10-20 Completed [facility] odist VACCINATION 00:00:00 [facility] [employer] COVID-19 MRNA 2020-09-29 Completed [facility] odist VACCINATION 00:00:00 [facility] influenza, influenza, 2020-05-27 [facility], [facility]:00 [facility] quadrivalent quadrivalent influenza, influenza, 2020-05-27 [facility], injectable, 00:00:00 Urology quadrivalent quadrivalent influenza, influenza, 2020-05-27 [facility]pleted [facility] inject[facility], injectable, 00:00:00 Urology quadrivalent quadrivalent influenza, influenza, 2020-05-27 [facility]pleted [facility] injectable, injectable, 00:00:00 Urology quadrivalent quadrivalent influenza, influenza, 2020-05-27 [facility]pleted [facility] inject[facility], injectable, 00:00:00 Urology quadrivalent quadrivalent influenza, influenza, 2020-05-27 Completed [place] [facility] injectable, injectable, 00:00:00 Urology quadrivalent quadrivalent influenza, influenza, 2019-05-21 Completed [place] [facility] injectable, injectable, 00:00:00 Urology quadrivalent quadrivalent influenza, influenza, 2019-05-21 [facility], injectable, 00:00:00 Urology quadrivalent quadrivalent influenza, influenza, 2019-05-21 [facility]pleted [facility] inject[facility], injectable, 00:00:00 Urology quadrivalent quadrivalent influenza, influenza, 2019-05-21 [facility]pleted [facility] injectable, injectable, 00:00:00 Urology quadrivalent quadrivalent influenza, influenza, 2019-05-21 [facility]pleted [facility] injectable, injectable, 00:00:00 Urology quadrivalent quadrivalent influenza, influenza, 2019-05-21 [facility]pleted [facility] injectable, injectable, 00:00:00 Urology quadrivalent quadrivalent pneumococcal pneumococcal 2015-09-11 Completed [place] Me tro polysaccharide PPV23 polysaccharide PPV23 00:00:00 Urology pneumococcal pneumococcal 2015-09-11 Completed [place] Me tro polysaccharide PPV23 polysaccharide PPV23 00:00:00 Urology pneumococcal pneumococcal 2015-09-11 Completed [place] Me tro polysaccharide PPV23 polysaccharide PPV23 00:00:00 Urology pneumococcal pneumococcal 2015-09-11 Completed [place] Me tro polysaccharide PPV23 polysaccharide PPV23 00:00:00 Urology pneumococcal pneumococcal 2015-09-11 Completed [place] Me tro polysaccharide PPV23 polysaccharide PPV23 00:00:00 Urology pneumococcal pneumococcal 2015-09-11 Completed [place] Me tro polysaccharide PPV23 polysaccharide PPV23 00:00:00 Urology Vital Signs Vital Name Observation Time Observation Value Comments Source BP Diastolic 2023-01-02 00:00:00 66 mm[Hg] [facility] Height 2023-01-02 00:00:00 73 [in_i] [facility] BMI (Body Mass 2023-01-02 00:00:00 27[facility] BP Systolic 2023-01-02 00:00:00 133 mm[Hg] [facility] Body Weight 2023-01-02 00:00:00 208 [lb_av] [facility] BP Diastolic 2022-07-04 00:00:00 77 mm[Hg] [facility] Height 2022-07-04 00:00:00 73 [in_i] [facility] BMI (Body Mass 2022-07-04 00:00:00 27.8 kg/m2 [place] [facility] Index) Urology BP Systolic 2022-07-04 00:00:00 128 mm[Hg] [facility] Body Weight 2022-07-04 00:00:00 211 [lb_av] [facility] Height 2021-12-28 00:00:00 73 [in_i] [facility] BMI (Body Mass 2021-12-28 00:00:00 28.4 kg/m2 [place] [facility] Index) Urology Body Weight 2021-12-28 00:00:00 215 [lb_av] [facility] BP Diastolic 2021-07-20 00:00:00 70 mm[Hg] [facility] Height 2021-07-20 00:00:00 73 [in_i] [facility] BMI (Body Mass 2021-07-20 00:00:00 28.4 kg/m2 [place] [facility] Index) Urology BP Systolic 2021-07-20 00:00:00 130 mm[Hg] [facility] Body Weight 2021-07-20 00:00:00 215 [lb_av] [facility] BP Diastolic 2021-06-28 00:00:00 74 mm[Hg] [facility] Height 2021-06-28 00:00:00 73 [in_i] [facility] BMI (Body Mass 2021-06-28 00:00:00 28.4 kg/m2 [place] [facility] Index) Urology BP Systolic 2021-06-28 00:00:00 128 mm[Hg] [facility] Body Weight 2021-06-28 00:00:00 215 [lb_av] [facility] BP Diastolic 2020-12-21 00:00:00 70 mm[Hg] [facility] Height 2020-12-21 00:00:00 73 [in_i] [facility] BMI (Body Mass 2020-12-21 00:00:00 28.9 kg/m2 [place] [facility] Index) Urology BP Systolic 2020-12-21 00:00:00 133 mm[Hg] [facility] Body Weight 2020-12-21 00:00:00 219 [lb_av] [facility] Systolic blood 2022-09-27 16:59:00 150 mm[Hg] [facility] pressure Diastolic blood 2022-09-27 16:59:00 70 mm[Hg] [facility] pressure Heart rate 2022-09-27 16:59:00 60 /min [facility] Body height 2022-09-27 16:59:00 185.4 cm [facility] Body weight 2022-09-27 16:59:00 86.183 kg [facility] BMI 2022-09-27 16:59:00 25.07 kg/m2 [facility] Procedures Procedure Date / Time Performing Clinician Source Performed DEXA, axial skeleton + 2023-01-02 00:00:00 [place] vertebral fracture Urology assessment CV STRESS TEST NUCLEAR 2022-10-28 21:06:13 [facility] CARDIO NM MYOCARDIAL PERFUSION 2022-10-28 21:06:13 [facility] REST STRESS 1 DAY US CAROTID DUPLEX 2022-10-18 17:00:00 [facility] BILATERAL TTE COMPLETE, WO CONTRAST, 2022-10-10 20:42:31 [facility] D[facility]ER ([id number]) ECG 12-LEAD 2022-09-27 16:57:25 [facility] Ho spital FL BARIUM SWALLOW 2022-01-03 15:35:[address] [facility] ESOPHAGUS C Medical Branch NOTICE OF BILLING 2021-11-29 14:14:55 Doctor Gabrielle, [facility] PRACTICES FOR MEDICARE [place] PATIENTS [facility] PATIENT FINANCIAL 2021-11-29 14:14:34 Doctor Unakinigned, [facility] POLICY [facility] NO SHOW OR MISSED 2021-11-29 14:14:21 Doctor Gabrielle, [facility] APPOINTMENT POLICY [facility] ACKNOWLEDGEMENT CONSENT/REFUSAL FOR 2021-11-29 14:14:05 Doctor Gabrielle, [facility] DIAGNOSIS AND TREATMENT [facility] ASSIGNMENT OF BENEFITS 2021-11-29 14:13:49 Doctor Unakristina, [facility] US, renal 2021-07-05 00:00:00 Handy Silvar o Urology DEXA, axial skeleton + 2021-06-28 00:00:00 [place] vertebral fracture Urology assessment Diagnostic Colonoscopy 2009-09-11 00:00:00 [place] [facility] - Radical Prostatectomy 2008-01-14 00:00:00 [place] [facility] CARDIO- Heart Surgery 2006-09-11 00:00:00 [place] [facility] (Stents) Urology CARDIO- Heart Surgery 2003-09-11 00:00:00 [place] (Stents) Urology - Orchiectomy (Testes 1972-09-11 00:00:00 [place] Removed) Urology Plan of Care Planned Activity Planned Date Details Comments Source Future Scheduled Test 2023-05-16 Hepatitis C screening [facility] 07:46:27 (procedure) [code = 121705873] Future Scheduled Test 2023-05-16 SHINGLES VACCINES ([address] [facility] 07:46:27 of 2) [code = SHINGLES VACCINES (1 of 2)] Future Scheduled Test 2023-05-16 65+ PNEUMOCOCCAL [facility] 07:46:27 VACCINE (2 - PCV) [code = 65+ PNEUMOCOCCAL VACCINE (2 - PCV)] Future Scheduled Test 2023-05-16 COVID-19 VACCINE (4 - [facility] 07:46:27 Pfizer series) [code = COVID-19 VACCINE (4 - Pfizer series)] Future Scheduled Test 2023-05-16 INFLUENZA VACCINE [facility] 07:46:27 (#1) [code = INFLUENZA VACCINE (#1)] Diagnostic Test 2023-01-02 PSA, serum or plasma [facility] [facility] Pending 00:00:00 [code = PSA, serum or Urolog y plasma] Diagnostic Test 2023-01-02 testosterone, total, [place] [facility] Pending 00:00:00 serum [code = Urology testosterone, total, serum] Future Appointment 2023-06-20 [place] [facility] 09:45:00 [address] [facility] [address]; , [place] [address] Encounters Start End Encounter Admission Attending Care Care Encounter Source Date/Time Date/Time Type Type Clinicians Facility Department ID 2023-05-14 2023-05-14 Kaylan Abreu 1.2.840.1 [id number] Methodi 00:00:00 00:00:00 Irma Hassan 13443.1.1 698 3.430.2.7 Hospit a .3.738045 l .8 2023-04-17 2023-04-17 Refill Brady, 1.2.840.1 [id number] Methodi 00:00:00 00:00:00 [address] 3.430.2.7 Hospit a .3.757773 l .8 2023-02-27 2023-02-27 Telephone Brady, 1.2.840.1 [id number] Methodi 00:00:00 00:00:[address] 3.430.2.7 Hospit a .3.202844 l .8 2023-02-27 2023-02-27 Refill Brady, 1.2.840.1 [id number] Methodi 00:00:00 00:00:[address] 3.430.2.7 Hospit a .3.940906 l .8 2023-02-15 2023-02-15 Refill Brady, 1.2.840.1 [id number] Methodi 00:00:00 00:00:[address] 3.430.2.7 Hospit a .3.486838 l .8 2023-02-08 2023-02-08 Outpatient Terrence_Drew [facility] [id number] [place] 00:00:00 00:00:00 [address] [facility] 2023-02-03 2023-02-03 Swathi Abreu, 1.2.840.1 [id number] Methodi 00:00:00 00:00:[address] 3.430.2.7 Hospit a .3.071391 l .8 2023-01-30 2023-01-30 Refill Prerna, 1.2.840.1 [id number] Methodi 00:00:00 00:00:[address] 3.430.2.7 Hospit a .3.200841 l .8 2023-01-30 2023-01-30 Telephone Brady 1.2.840.1 [id number] Methodi 00:00:00 00:00:00 Irma Hassan [address]1.[address] 3.430.2.7 Hospit a .3.319560 l .8 2023-01-14 2023-01-14 Outpatient [place] [place] [id number] [place] 00:00:00 00:00:00 [address] [facility] 2023-01-09 2023-01-09 Outpatient [place] [place] [id number] [place] 00:00:00 00:00:00 [id number] [facility] 2023-01-09 2023-01-09 Outpatient [place] [place] [id number] [place] 00:00:00 00:00:00 [id number] [facility] 2023-01-02 2023-01-02 Outpatient [place]on_[facility] [place] [id number] [place] 00:00:00 00:00:00 43528 [facility] 2023-01-02 2023-01-02 [facility] [place] - [id number] singh 00:00:00 00:00:00 Handy Ocampo MD: [id number] [facility] [place] [facility] [address], [place] [address] , Ph. 2022 2022 Telephone Prerna, 1.2.840.1 [id number] Methodi 00:00:00 00:00:[address] 3.430.2.7 Hospit a .3.653968 l .8 2022-10-25 2022-10-25 Outpatient [facility] [id number] [place] 00:00:00 00:00:00 IRMA Abraham [facility] 2022-10-25 2022-10-25 Travel 1.2.840.1 1.2.816.651 [id number] Methodi 00:00:00 00:00:[address] 3.430.2.7 0.2.7.3.698 Ho spita .3.658115 084.8 l .8 2022-10-18 2022-10-18 Outpatient [facility] [id number] [place] 00:00:00 00:00:00 IRMA [address] 2022-10-18 2022-10-18 Travel 1.2.840.1 1.2.449.117 [id number] Methodi 00:00:00 00:00:[address] 3.430.2.7 0.2.7.3.698 Ho spita .3.611862 084.8 l .8 2022-10-10 2022-10-10 Travel 1.2.840.1 1.2.215.407 [id number] Methodi 00:00:00 00:00:[address] 3.430.2.7 0.2.7.3.698 Ho spita .3.287844 084.8 l .8 2022-10-10 2022-10-10 Outpatient [facility] [id number] [place] 00:00:00 00:00:00 IRMA [address] 2022-09-27 2022-09-27 Office Abreu, 1.2.840.1 [id number] Methodi 10:10:00 16:35:21 Visit Irma Hassan 32956.1.[address] 3.430.2.7 Hospit a .3.382811 l .8 2022-09-27 2022-09-27 Travel 1.2.840.1 1.2.530.919 [id number] Methodi 00:00:00 00:00:[address] 3.430.2.7 0.2.7.3.698 Ho spita .3.801572 084.8 l .8 2022-09-27 2022-09-27 Outpatient [facility] [id number] [place] 00:00:00 00:00:00 IRMA [address] 2022-08-13 2022-08-13 Kaylan Abreu, 1.2.840.1 [id number] Methodi 00:00:00 00:00:[address] 3.430.2.7 Hospit a .3.489969 l .8 2022-08-11 2022-08-11 Kaylan Abreu, 1.2.840.1 [id number] Methodi 00:00:00 00:00:[address] 3.430.2.7 Hospit a .3.144230 l .8 2022-08-01 2022-08-01 Outpatient [facility]M [facility] [id number] [place] 00:00:00 00:00:00 [id number] [facility] 2022-07-26 2022-07-26 Outpatient [place] [id number] [place] 00:00:00 00:00:00 51850 [facility] 2022-07-25 2022-07-25 Kaylan Abreu, 1.2.840.1 [id number] Methodi 00:00:00 00:00:[address] 3.430.2.7 Hospit a .3.148490 l .8 2022-07-12 2022-07-12 Outpatient [place] [id number] [place] 00:00:00 00:00:00 55543 [facility] 2022-07-04 2022-07-04 Outpatient [facility] [id number] [place] 00:00:00 00:00:00 [id number] [facility] 2022-07-04 2022-07-04 [facility] [place] - [id number] Saleem winters 00:00:00 00:00:00 Handy Ocampo MD: [address] [facility] [address], [place] [address] , Ph. 2022-06-30 2022-06-30 Outpatient [place] [id number] [place] 00:00:00 00:00:00 [id number] [facility] 2022-04-18 2022-04-18 Outpatient [facility] [id number] [place] 00:00:00 00:00:00 [id number] [facility] 2022-03-21 2022-03-21 Outpatient [facility] [id number] [place] 01:04:00 01:04:00 [id number] [facility] 2022-02-13 2022-02-13 Outpatient [place] [id number] [place] 12:50:00 12:50:00 [facility] 2022-01-09 2022-01-09 Outpatient [place] [id number] [place] 12:57:00 12:57:00 [facility] 2022-01-03 2022-01-[address] [facility] [id number] [facility] 09:00:36 23:59:00 CRUZ Manzano [facility] 2022-01-03 2022-01-03 [facility] [id number] [facility] 09:00:36 23:59:00 Cruz Guevara [place] [id number] [facility] [id number] [facility] [id number] [address] 2021-12-29 2021-12-29 Outpatient Lewitton_M [facility] [id number] 12:12:00 12:12:00 [facility] 2021-12-28 2021-12-28 Outpatient Lew[place]on_M [facility] [id number] 09:41:00 09:41:00 [facility] 2021-12-28 2021-12-28 [place] [facility] [place] [id number] Saleem winters 00:00:00 00:00:00 Handy Ocampo MD: [id number] [facility] [address], [place] [address] , Ph. 2021-12-28 2021-12-28 Outpatient ROB Ocampo [facility] [place] [id number] 00:00:00 00:00:00 Jayce [id number] 2021-11-29 2021-11-29 [facility] [id number] [facility] 09:00:00 23:59:00 Cruz Guevara [place] [id number] [facility] [id number] [facility] [id number] [address] 2021-11-29 2021-11-[address] [facility] [id number] [facility] 00:00:00 23:59:00 CRUZ Manzano o [facility] 2021-09-28 2021-09-28 Outpatient [facility] [id number] 00:00:00 00:00:00 IRMA [address] 2021-08-21 2021-08-21 Outpatient Terrence_M [facility] U [id number] 04:12:00 04:12:00 [id number] [facility] 2021-07-22 2021-07-22 Outpatient Fabrizioon_M [facility] [id number] 09:28:00 09:28:00 [id number] [facility] 2021-07-21 2021-07-21 Outpatient Fabrizioon_M [facility] [id number] 06:19:00 06:19:00 [id number] [facility] 2021-07-20 2021-07-20 Outpatient Fabrizioon_M [facility]U [facility] [id number] 01:16:00 01:16:00 10011 [facility] 2021-07-20 2021-07-20 [facility] [place] - [id number] Saleem winters 00:00:00 00:00:00 Handy Ocampo MD: [id number] [facility] [place] [address], [place] [address] , Ph. 2021-07-20 2021-07-20 Outpatient Terrence, [facility]U [facility]U [id number] 00:00:00 00:00:00 Jayce [id number] 2021-07-13 2021-07-13 Outpatient [place]on_M [facility] [id number] 02:37:00 02:37:00 [id number] [facility] 2021-07-10 2021-07-10 Outpatient [place]on_M [facility] [id number] 03:34:00 03:34:00 [id number] [facility] 2021-06-29 2021-06-29 Outpatient [place]on_M [facility] [id number] 09:27:00 09:27:00 [id number] [facility] 2021-06-28 2021-06-28 Outpatient [place]on_M [facility] [id number] 02:25:00 02:25:00 [id number] [facility] 2021-06-28 2021-06-28 Outpatient Terrence, HMU [facility]U [id number] 00:00:00 00:00:00 Jayce [id number] 2021-06-28 2021-06-28 Jayce U [place] - [id number] H singh 00:00:00 00:00:00 Handy Ocampo MD: [id number] [facility] [place] [address], [place] [address] , Ph. 2021-06-24 2021-06-24 Outpatient [place]on_M [facility] [id number] 10:50:00 10:50:00 [id number] [facility] 2021-06-15 2021-06-15 Outpatient [facility] [id number] 00:00:00 00:00:[address] 2020-12-21 2020-12-21 Outpatient Lewitton_M [facility] [id number] 02:14:00 02:14:00 [id number] [facility] 2020-12-21 2020-12-21 Outpatient Terrence [facility] [id number] 00:00:00 00:00:00 Jayce [id number] 2020-12-21 2020-12-21 [place] [facility] [place] [id number] [facility] 00:[facility]:00 00:00:00 FabriziomickeyHandy MD: [id number] [facility] [address], [place] [address] , Ph. 2020-12-02 2020-12-02 Outpatient Mirian [facility] [id number] 01:49:00 01:49:00 [id number] [facility] 2020-10-20 2020-10-20 [facility] [id number] 00:00:00 00:00:[address] 2020-09-29 2020-09-29 Outpatient [facility] [id number] 00:00:00 00:00:[address] 2020-09-29 2020-09-29 Outpatient ABREU, [facility] [id number] 00:00:00 00:00:00 IRMA [address] 2020-09-22 2020-09-22 Outpatient ABREU, [facility] [id number] [place] 00:00:00 00:00:00 IRMA [address] 2020-03-31 2020-03-31 Outpatient BRADY, [facility] [id number] 00:00:00 00:00:00 IRMA [address] 2020-02-13 2020-02-14 Inpatient ABREU, [facility] [id number] [place] 00:00:00 00:00:00 IRMA [address] 2020-02-11 2020-02-11 Outpatient BRADY, [facility] [id number] 00:00:00 00:00:00 IRMA [address] 2020-02-11 2020-02-11 Outpatient BRADY, [facility] [id number] 00:00:00 00:00:00 IRMA [address] 2020-01-14 2020-01-14 Outpatient ABREU, [facility] [id number] 00:00:00 00:00:00 IRMA [address] 2020-01-10 2020-01-10 Outpatient [facility] [id number] [place] 00:00:00 00:00:[address] Results Test Description Test Time Test Comments Results Result Comments Source PSA, serum or plasma 2023-01-02 00:00:00 Test Item Value Reference Range Interpretation Comme nts PSA testosterone (test code = PSA testosterone) PSA_1 (test code = PSA_1) <0.02 testosterone_1 (test code = testosterone_1) 12.72 [facility] 12 [id number] 03:35:08 Test Item Value Reference Range Interpretation Comments Ventricular rate 58 (test code = 253) Atrial rate (test 57 code = 255) QRSD interval (test 102 code = 260) QT interval (test 458 code = 264) QTC interval (test 449 code = 265) QRS axis 1 (test code 15 = 268) T wave axis (test 9 code = 270) EKG impression (test ^^^ Poor data quality, code = 273) interpretation may be adversely affected-Sinus bradycardia-Otherwise normal ECG-In automated comparison with ECG of 28-SEP-2021 10:06,-Junctional rhythm has replaced Sinus rhythm-Nonspecific T wave abnormality no longer evident in Anterior leads- [facility] or [id number] 00:00:00 Test Item Value Reference Range Interpretation Comments PSA testosterone (test code = PSA testosterone) PSA_1 (test code = PSA_1) <0.02 testosterone_1 (test code = 15.48 testosterone_1) shbg_1 (test code = shbg_1) 44.0 calculated free testosterone_1 (test 0.231 code = calculated free testosterone_1) [facility]
--- NOTE | 2023-05-18 10:53 | RAD REPORT ---
EXAM DESCRIPTION: CT - Stone Protocol - 05/18/2023 10:37 am CLINICAL HISTORY: Abdominal pain. Flank pain COMPARISON: 2015 TECHNIQUE: Computed axial tomography of the abdomen pelvis was obtained without oral or IV contrast. Lack of IV and oral contrast limits evaluation of solid organs, appendix, bowel, and vessels. Beaver l reformatted images were obtained and reviewed. All CT scans are performed using dose optimization technique as appropriate and may include automated exposure control or mA/KV adjustment according to patient size. FINDINGS: Moderate right hydronephrosis. A right renal calculus is not seen. 6 millimeter calculus p roximal right ureter. Several small left renal calculi. No hydronephrosis. No bladder calculus Prostatectomy with lymph node dissection. The liver, spleen, pancreas and adrenals appear grossly normal There is no evidence of diverticulitis. Prominent vascular calcifications IMPRESSION: 6 millimeter calculus proximal right ureter resulting in moderate right hydronephrosis
[2023-05-18] MEDS ORDERED: HYDROCODONE/APAP 10/325 TAB ONE (11:56)
[2023-05-18 12:07] LABS: MCV 93.8 fL (80-100); Platelets 129 thou/uL (152-406); RBC Red Blood Cell Count 3.63 M/uL (4.33-5.43)
[2023-05-18 12:16] LABS: Potassium 5.3 mEq/L (3.5-5.1)
[2023-05-18 13:33] LABS: Specific Gravity 1.022 (1.005-1.030); Urine Bacteria <20 /HPF (<20); Urine Bilirubin NEGATIVE (Negative); Urine Blood Trace (Negative); Urine Clarity Turbid (Clear); Urine Color Light-Yellow (Yellow); Urine Glucose 4+ (Over) (Negative); Urine Mucus Slight /HPF (None Seen); Urine Protein 1+ (Negative); Urine RBC <5 /HPF (None Seen); Urine Urobilinogen Normal (Normal); Urine pH 5.5 (5.0-7.0)
--- NOTE | 2023-05-18 13:44 | EDPHYS ---
Physician Documentation [facility] Name: Jomar Diaz Age: 77 yrs Sex: Male : 1945 Arrival Date: 05/18/2023 Time: 09:19 Bed 15 Private MD: ED Physician Ulises Andre HPI: 05/18 10:20 This 77 yrs old Male presents to ER via Ambulatory with complaints of Urinary Problem - sb4 Burning. 10:20 The patient presents with flank pain, of the left low back and right low back, urinary sb4 symptoms, dysuria. Onset: The symptoms/episode began/occurred 1 week(s) ago. Modifying factors: The symptoms are alleviated by nothing, the symptoms are aggravated by nothing. Associated signs and symptoms: Pertinent negatives: abdominal pain, fever, nausea, vomiting. The patient has not experienced similar symptoms in the past. The patient has been recently seen by a physician: the patient's primary care provider. patient with UTI x 1 week. PCP prescribed cefuroxime but patient stopped taking it because it gave him diarrhea. today he reports continued dysuria and new bilateral flank pain. Historical: - Allergies: 09:34 metformin; iw - PMHx: 09:34 Diabetes - NIDDM; Hypertension; Prostate Cancer; kidney disease; iw - Immunization history:: Adult Immunizations up to date. - Social history:: Smoking status: Patient denies any tobacco usage or history of. ROS: 10:20 Constitutional: Negative for fever, chills, and weight loss. sb4 10:20 Back: Positive for flank pain, bilaterally. 10:20 : Positive for burning with urination, difficulty urinating. 10:20 All other systems are negative. Exam: 10:20 Constitutional: This is a well developed, well nourished patient who is awake, alert, sb4 and in no acute distress. Head/Face: Normocephalic, atraumatic. Eyes: Extra-ocular motions intact. Periorbital areas with no swelling, redness, or edema. Cardiovascular: Regular rate and rhythm with a normal S1 and S2. Respiratory: Lungs have equal breath sounds bilaterally, clear to auscultation and percussion. No rales, rhonchi or wheezes noted. No increased work of breathing, no retractions or nasal flaring. Abdomen/GI: Soft, non-tender, no distension. Skin: Warm, dry with normal turgor. Normal color with no rashes, no lesions, and no evidence of cellulitis. MS/ Extremity: Pulses equal, no cyanosis. Neurovascular intact. Full, normal range of motion. Neuro: Awake and alert, GCS 15, oriented to person, place, time, and situation. Cranial nerves II-XII grossly intact. Motor strength 5/5 in all extremities. Sensory grossly intact. Cerebellar exam normal. Normal gait. Vital Signs: 09:33 BP 101 / 57; Pulse 69; Resp 16; Temp 98.2; Weight 81.65 kg; Height 6 ft. 0 in. ; Pain iw 6/10; 12:01 BP 105 / 58; Pulse 64; Resp 18; Pulse Ox 98% on R/A; ph 13:11 BP 118 / 59; Pulse 78; Resp 18; Pulse Ox 98% on R/A; ph 14:38 BP 109 / 55; Pulse 73; Resp 18; Pulse Ox 99% on R/A; ph 15:35 BP 125 / 52; Pulse 97; Resp 18; Pulse Ox 100% on R/A; ph 16:30 BP 134 / 65; Pulse 93; Resp 18; Pulse Ox 98% on R/A; ph 17:30 BP 127 / 59; Pulse 96; Resp 16; Pulse Ox 97% on R/A; ph 17:30 Temp 98.6; ph 09:33 Body Mass Index 24.41 (81.65 kg, 182.88 cm) iw 09:33 Pain Scale: Adult iw MDM: 09:25 Patient medically screened. sb4 10:20 Differential diagnosis: UTI, urinary retention, urethritis, pyelonephritis, sb4 ureterolithiasis. 13:41 Data reviewed: vital signs, nurses notes, lab test result(s), radiologic studies, and sb4 as a result, I will admit patient. Consideration of Admission/Observation Patient was admitted/placed on observation. Management of patient was discussed with the following: Hospitalist: EVELINE Schaefer. Lab Rn: Urology- Dr. Celaya. Historians other than the Patient: Spouse/Significant Other: . Care significantly affected by the following chronic conditions: Diabetes, Hypertension, Chronic Kidney Disease. Counseling: I had a detailed discussion with the patient and/or guardian regarding the historical points, exam findings, and any diagnostic results supporting the discharge/admit diagnosis, radiology results, the need for further work-up and treatment in the hospital. 05/18 09:43 Order name: UAM; Complete Time: 13:34 sb4 05/18 11:12 Order name: CBC w/o diff; Complete Time: 12:09 sb4 05/18 11:12 Order name: BMP; Complete Time: 12:23 sb4 05/18 12:24 Order name: Lactate w/ 2H reflex if indic.; Complete Time: 13:36 sb4 05/18 12:24 Order name: Blood Culture Adult (2) sb4 05/18 13:36 Order name: Urine Culture EDMS 05/18 14:35 Order name: Urinalysis w/ reflexes EDMS 05/18 14:35 Order name: Basic Metabolic Panel EDMS 05/18 14:35 Order name: Basic Metabolic Panel EDMS 05/18 14:35 Order name: Basic Metabolic Panel EDMS 05/18 14:35 Order name: Basic Metabolic Panel EDMS 05/18 14:35 Order name: CBC with Automated Diff EDMS 05/18 14:35 Order name: CBC with Automated Diff EDMS 05/18 14:35 Order name: CBC with Automated Diff EDMS 05/18 14:35 Order name: CBC with Automated Diff EDMS 05/18 14:35 Order name: Magnesium EDMS 05/18 14:35 Order name: Magnesium EDMS 05/18 14:35 Order name: Magnesium EDMS 05/18 14:35 Order name: Magnesium EDMS 05/18 14:35 Order name: Phosphorus EDMS 05/18 14:35 Order name: Phosphorus EDMS 05/18 14:35 Order name: Phosphorus EDMS 05/18 14:35 Order name: Phosphorus EDMS 05/18 10:23 Order name: CT Stone Protocol; Complete Time: 11:02 sb4 05/18 14:19 Order name: CONS Physician Consult EDMS 05/18 10:30 Order name: Labs - recollect needed: collect more urine; Complete Time: 13:11 bd 05/18 13:45 Order name: NPO; Complete Time: 13:52 sb4 Administered Medications: 12:02 Drug: Mobile PO 10 mg-325 mg 1 tabs Route: PO; ph 13:11 Follow up: Response: No adverse reaction ph 14:01 Drug: NS 0.9% IV 1000 ml Route: IV; Rate: 1 bolus; Site: right antecubital; ph 15:45 Follow up: Response: No adverse reaction; IV Status: Completed infusion; IV Intake: ph 1000ml 14:01 Drug: Rocephin IV 1 grams Route: IV; Rate: calculated rate; Site: right antecubital; ph 14:39 Follow up: Response: No adverse reaction; IV Status: Completed infusion ph Disposition Summary: 05/18/23 13:43 Hospitalization Ordered Hospitalization Status: Inpatient Admission sb4 Provider: Zully Escobedo sb4 Location: Telemetry/[facility] (Inpatient) sb4 Condition: Fair sb4 Problem: new sb4 Symptoms: are unchanged sb4 Bed/Room Type: Standard sb4 Room Assignment: 406(05/18/23 17:16) bd Diagnosis - Acute kidney failure, unspecified sb4 - UTI/ Urinary tract infection, site not specified sb4 - ureterolithiasis, right, 6 mm, with moderate hydronephrosis sb4 Forms: - Medication Reconciliation Form sb4 - SBAR form sb4 - Leadership Thank You Letter sb4 Signatures: Dispatcher [employer] Letha Olea Irene, RN Marjorie Campo RN RN ph Brown, Sophia PASalma PASalma sb4 Corrections: (The following items were deleted from the chart) 17:16 13:43 sb4 bd
--- NOTE | 2023-05-18 13:44 | ER ---
Nurse's Notes [facility] Name: Jomar Diaz Age: 77 yrs Sex: Male : 1945 Arrival Date: 05/18/2023 Time: 09:19 Bed 15 Private MD: Diagnosis: Acute kidney failure, unspecified;UTI/ Urinary tract infection, site not specified;ureterolithiasis, right, 6 mm, with moderate hydronephrosis Presentation: 05/18 09:33 Chief complaint: Patient states: pain with urination and kidney pain since yesterday , iw he had antibiotics for a UTI last week but he stopped it because it caused diarrhea , was being seen by Dr. Frederick. Coronavirus screen: At this time, the client does not indicate any symptoms associated with coronavirus-19. Ebola Screen: Patient negative for fever greater than or equal to 101.5 degrees Fahrenheit, and additional compatible Ebola Virus Disease symptoms Patient denies exposure to infectious person. Patient denies travel to an Ebola-affected area in the 21 days before illness onset. No symptoms or risks identified at this time. Initial Sepsis Screen: Does the patient meet any 2 criteria? No. Patient's initial sepsis screen is negative. Does the patient have a suspected source of infection? No. Patient's initial sepsis screen is negative. Risk Assessment: Do you want to hurt yourself or someone else? Patient reports no desire to harm self or others. Onset of symptoms was May 16, 2023. 09:33 Method Of Arrival: Ambulatory iw 09:33 Acuity: AMIE 3 iw Historical: - Allergies: 09:34 metformin; iw - PMHx: 09:34 Diabetes - NIDDM; Hypertension; Prostate Cancer; kidney disease; iw - Immunization history:: Adult Immunizations up to date. - Social history:: Smoking status: Patient denies any tobacco usage or history of. Screenin:26 [facility] ED Fall Risk Assessment (Adult) History of falling in the last 3 months, ph including since admission No falls in past 3 months (0 pts) Confusion or Disorientation No (0 pts) Intoxicated or Sedated No (0 pts) Impaired Gait Yes (1 pt) Mobility Assist Device Used Yes (1 pt) Altered Elimination No (0 pt) Score/Fall Risk Level 0 - 2 = Low Risk Oriented to surroundings, Maintained a safe environment, Provided non-skid footwear, Hourly rounding (assess needs \T\ fall precautionary measures) done, Used ambulatory aids as needed (educated on \T\ assisted with). Abuse screen: Denies threats or abuse. Denies injuries from another. Nutritional screening: No deficits noted. Tuberculosis screening: No symptoms or risk factors identified. Assessment: 10:24 General: Appears in no apparent distress. Behavior is calm, cooperative, appropriate ph for age, Denies fever. Pain: Complains of pain in right low back and left low back. Neuro: Level of Consciousness is awake, alert, obeys commands, Oriented to person, place, time, situation. Cardiovascular: Capillary refill < 3 seconds in bilateral fingers. Respiratory: Airway is patent Respiratory effort is even, unlabored. : Reports pain in bilateral in lower back with urination. Derm: Skin is pink, warm \T\ dry. 10:30 Reassessment: Patient appears in no apparent distress at this time. Patient and/or ph family updated on plan of care and expected duration. Pain level reassessed. Patient is alert, oriented x 3, equal unlabored respirations, skin warm/dry/pink. Pt taken for CT. 12:00 Reassessment: Patient appears in no apparent distress at this time. Patient and/or ph family updated on plan of care and expected duration. Pain level reassessed. Patient is alert, oriented x 3, equal unlabored respirations, skin warm/dry/pink. Patient denies pain at this time. 14:00 Reassessment: Patient appears in no apparent distress at this time. No changes from previously documented assessment. Patient and/or family updated on plan of care and expected duration. Pain level reassessed. Patient is alert, oriented x 3, equal unlabored respirations, skin warm/dry/pink. 16:00 Reassessment: Patient appears in no apparent distress at this time. Patient and/or ph family updated on plan of care and expected duration. Pain level reassessed. Patient is alert, oriented x 3, equal unlabored respirations, skin warm/dry/pink. 17:59 Reassessment: Patient appears in no apparent distress at this time. Patient and/or ph family updated on plan of care and expected duration. Pain level reassessed. Patient is alert, oriented x 3, equal unlabored respirations, skin warm/dry/pink. Vital Signs: 09:33 BP 101 / 57; Pulse 69; Resp 16; Temp 98.2; Weight 81.65 kg; Height 6 ft. 0 in. ; Pain iw 02/18; 12:01 BP 105 / 58; Pulse 64; Resp 18; Pulse Ox 98% on R/A; ph 13:11 BP 118 / 59; Pulse 78; Resp 18; Pulse Ox 98% on R/A; ph 14:38 BP 109 / 55; Pulse 73; Resp 18; Pulse Ox 99% on R/A; ph 15:35 BP 125 / 52; Pulse 97; Resp 18; Pulse Ox 100% on R/A; ph 16:30 BP 134 / 65; Pulse 93; Resp 18; Pulse Ox 98% on R/A; ph 17:30 BP 127 / 59; Pulse 96; Resp 16; Pulse Ox 97% on R/A; ph 17:30 Temp 98.6; ph 09:33 Body Mass Index 24.41 (81.65 kg, 182.88 cm) iw 09:33 Pain Scale: Adult iw ED Course: 09:22 Patient arrived in ED. mg5 09:25 Shereen Pedersen PA-C is PHCP. sb4 09:25 Ulises Andre MD is Attending Physician. sb4 09:34 Triage completed. iw 09:34 Arm band placed on. iw 09:37 Marjorie Rizo, RN is Primary Nurse. ph 10:22 UAM Sent. ph 10:26 Patient has correct armband on for positive identification. Bed in low position. Call ph light in reach. Pulse ox on. NIBP on. Door closed. Noise minimized. Warm blanket given. 10:31 No provider procedures requiring assistance completed. ph 10:37 CT Stone Protocol In Process Unspecified. EDMS 12:01 Initial lab(s) drawn, by me, sent to lab. Inserted saline lock: 22 gauge in right ph antecubital area, using aseptic technique. Blood collected. 13:11 Lactate w/ 2H reflex if indic. Sent. ph 13:11 Blood Culture Adult (2) Sent. ph 13:42 Zully Escobedo MD is Hospitalizing Provider. sb4 14:39 Patient admitted, IV remains in place. ph Administered Medications: 12:02 Drug: [place] PO 10 mg-325 mg 1 tabs Route: PO; ph 13:11 Follow up: Response: No adverse reaction ph 14:01 Drug: NS 0.9% IV 1000 ml Route: IV; Rate: 1 bolus; Site: right antecubital; ph 15:45 Follow up: Response: No adverse reaction; IV Status: Completed infusion; IV Intake: ph 1000ml 14:01 Drug: Rocephin IV 1 grams Route: IV; Rate: calculated rate; Site: right antecubital; ph 14:39 Follow up: Response: No adverse reaction; IV Status: Completed infusion ph Medication: 10:26 VIS not applicable for this client. ph Intake: 15:45 IV: 1000ml; Total: 1000ml. ph Outcome: 13:43 Decision to Hospitalize by Provider. sb4 14:39 Condition: stable ph 18:01 Admitted to Med/surg accompanied by tech, family with patient, via stretcher, room 406. ph 18:01 Instructed on the need for admit. 18:42 Patient left the ED. ph Signatures: Dispatcher [employer] EDNicole Holloway RN RN Marjorie Rizo RN RN Shereen Pedersen, PA-C PA-C sb4 Nguyen Stern mg5 Corrections: (The following items were deleted from the chart) 09:35 09:33 Resp 16bpm; Temp 98.2F; 81.65 kg; Height 6 ft. 0 in.; BMI: 24.4; iw 18:00 10:30 Reassessment: Patient appears in no apparent distress at this time. Patient ph and/or family updated on plan of care and expected duration. Pain level reassessed. Patient is alert/active/playful, equal unlabored respirations, skin warm/dry/pink. Pt taken for CT ph
[2023-05-18] MEDS ORDERED: NA CHLORIDE 0.9% 50 ML ONE (14:05)
[2023-05-18] MEDS ORDERED: CEFTRIAXONE 1000 MG/VIAL ONE (14:05)
[2023-05-18] MEDS ORDERED: NA CHLORIDE 0.9% 1,000 ML ONE ×2 (14:05→20:14)
[2023-05-18] MEDS ORDERED: ACETAMINOPHEN 500 MG TAB PO PRN (14:29)
[2023-05-18] MEDS ORDERED: ONDANSETRON 4 MG/2 ML VIAL IV PRN (14:29)
[2023-05-18] MEDS ORDERED: D5 0.45 NS 1,000 ML IV SCH (15:00)
[2023-05-18] MEDS ORDERED: FENTANYL CITR 100 MCG/2 ML ONE ×2 (16:55→21:16)
[2023-05-18] MEDS: FENTANYL CITR 100 MCG/2 ML IV PRN ×3 (16:55→20:15)
[2023-05-18] MEDS ORDERED: ONDANSETRON 4 MG/2 ML VIAL ONE (16:56)
[2023-05-18] MEDS ORDERED: D5 0.45 NS 1,000 ML IV ONE (16:56)
--- NOTE | 2023-05-18 19:27 | P.HP ---
Certification for Inpatient Patient admitted to: Observation With expected LOS: <2 Midnights Patient will require the following post-hospital care: None Practitioner: I am a practitioner with admitting privileges, knowledge of patient current condition, hospital course, and medical plan of care. Services: Services provided to patient in accordance with Admission requirements found in Title 42 Section 412.3 of the Code of Federal Regulations Patient History Date of Service: 05/18/23 History of Present Illness: 77-year-old male with primary medical history of diabetes hypertension prostrate cancer kidney disease presented to the ER with flank pain of the little left low back and right low back . Patient denies abdominal pain fever nausea vomiting. Patient was recently seen by his primary care provider and prescribed cefuroxime for UTI but patient often stopped taking it because it gave him diarrhea today he reports he continued dysuria and new bilateral flank pain. Labs shows elevated WBCs of 25.2, hemoglobin 11.2 low ,hematocrit 34 low, platelet count of 129 low ,serum potassium 5.3 high ,chloride of 110 low, BUN 43 elevated ,creatinine elevated 2.46, GFR low ,126 blood glucose [address] abdomen stone protocol shows 6 mm calculus proximal right ureter resulting in moderate right hydronephrosis. Vital signs on admission blood pressure 101/56, pulse 69, respirations 16, temperature 98.2 Patient is admitted floor with a diagnosis UTI, kidney stone, acute kidney injury Allergies No Known Allergies Allergy (Unverified 05/06/16 13:00) Review of Systems Eyes: Pain Respiratory: Unremarkable Genitourinary: Dysuria, Other (difficulty urination) Integumentary: Unremarkable Physical Examination - Vital Signs Temperature: 98.4 F Blood Pressure: 139/63 Pulse: 93 Respirations: 14 Pulse Ox (%): 94 - Physical Exam General: Alert, Oriented x3 HEENT: Atraumatic, PERRLA Neck: Supple, Without JVD or thyroid abnormality Respiratory: Clear to auscultation bilaterally Cardiovascular: No edema, Normal S1 S2 Gastrointestinal: Normal bowel sounds Musculoskeletal: No clubbing, No swelling - Studies Laboratory Data (last 24 hrs) 05/18/23 05/18/23 11:55 11:55 WBC 25.20 H Hgb 11.2 L Hct 34.0 L Plt Count 129 L Sodium 138 Potassium 5.3 H BUN 43 H Creatinine 2.46 H Glucose 129 H Assessment and Plan - Plan Assessment and plan UTI Kidney stone Acute kidney injury Assessment and plan UTI: -Acute, dysuria and new bilateral flank pain, positive urine analysis.antibiotic started -IV fluids started for hydration. admitting the patient -We will continue to monitor Kidney stone; -Acute, CT abdomen stone protocol shows 6 mm calculus proximal right ureter resu lting in moderate right hydronephrosis. -Referred urologist Acute kidney injury -Acute, serum potassium 5.3 high chloride of 110 low BUN 43 elevated creatinine elevated 2.46 GFR low at 26 blood glucose 129 positive urine analysis. -IV hydration started -We will continue to monitor the patient Patient is full code VTE prophylaxis ordered Discharge Plan: Home - Advance Directives Does patient have a Living Will: No Does patient have a Durable POA for Healthcare: No - Code Status/Comfort Care Code Status Assessed: Yes (full) Code Status: Full Code Critical Care: No Time Spent Managing Pts Care (In Minutes): 55 (minutes)
--- NOTE | 2023-05-18 21:15 | P.CNS ---
Date of Consult: 05/18/23 Reason for Consult: Obstructive ureterolithiasis and SIRS Chief Complaint: Right flank pain History of Present Illness: 77-year-old gentleman with aortic pig valve, DM 2, hypertension, CKD, CAD with 5 stents on aspirin and Plavix, history of prostate cancer post EBRT over 20 years ago, s/p TURP with incontinence presents via the emergency department with complicated UTI/SIRS associated with an obstructing right ureteral calculus. His , on behalf of the patient who was somewhat altered, explains that he had symptoms of dysuria that began on Monday. He saw his primary care physician and was diagnosed with a urinary tract infection and started on an oral cephalosporin. He only took it for 2 doses because he developed diarrhea, and the dysuria did seem to improve. He subsequently began to worsen within the last day or 2 and began to have chills in addition to right flank pain. When his mental status began to decline, his brought him to the emergency department for evaluation. Past medical and surgical history as above No known drug allergies Examination: Patient pleasant but somewhat combative with his , slightly altered but in no acute distress Clearly febrile and warm to the touch Alert and awake and oriented to person and place No dyspnea or sign of respiratory distress Cervical/supraclavicular adenopathy or thyromegaly Abdomen soft, nontender, nondistended Lower extremities movable and nontender/no Homans' sign Pulse 2+ radial and regular 05/18/2023 CT stone protocol findings: Moderate right hydronephrosis. A right renal calculus is not seen. 6 mm calculus proximal right ureter. Several small left renal calculi without hydronephrosis. No bladder calculus. Status post prostatectomy with pelvic lymph node dissection indicated on CT. Creatinine 2.46 with baseline 1.2, WBC 25.2, hemoglobin/hematocrit 11.2/34 Assessment and recommendation: 77-year-old gentleman with aortic pig valve, DM 2, hypertension, CKD, CAD with 5 stents on aspirin and Plavix, history of prostate cancer post EBRT over 20 years ago, s/p TURP versus radical prostatectomy with postprocedure incontinence now with complicated UTI and SIRS, possible sepsis, with AMS decompensation in the setting of LM secondary to a 6 mm proximal right ureteral obstructing calculus and right hydronephrosis. -Ceftriaxone 1 g given via the emergency department, but if patient continues to decline further, recommended cefepime or Zosyn to broaden coverage -Urgent operative decompression via cystoscopy with right retrograde pyelogram and ureteral stent placement -Follow-up once infection resolved in the urology clinic to plan definitive surgical management of his bilateral kidney stones and right obstructive ureterolithiasis. Allergies metformin Allergy (Verified 05/18/23 20:06) ITCHING/ SWELLING Home medications list reviewed: Yes - Past Medical/Surgical History Diabetic: Yes Physical Examination Temp Pulse Resp BP Pulse Ox 98.4 F 117 H 22 H 128/94 H 94 05/18/23 19:27 05/18/23 20:40 05/18/23 20:40 05/18/23 20:40 05/18/23 19:27 Laboratory Data (last 24 hrs) 05/18/23 05/18/23 11:55 11:55 WBC 25.20 H Hgb 11.2 L Hct 34.0 L Plt Count 129 L Sodium 138 Potassium 5.3 H BUN 43 H Creatinine 2.46 H Glucose 129 H Conclusions/Impression: See HPI Critical Care: No Time Spent Managing Pts care (In Minutes): 45
[2023-05-18] MEDS ORDERED: ROCURONIUM 50 MG/5 ML VIAL IV ONE (21:17)
[2023-05-18] MEDS ORDERED: LIDOCAINE 1% MPF 5 ML VIAL ONE (21:17)
[2023-05-18] MEDS ORDERED: propofoL 200 MG/20 ML VIAL IV ONE (21:17)
[2023-05-18] MEDS ORDERED: SUCCINYLCHOLINE 20 MG/ML (10 ML) IV ONE (21:24)
[2023-05-18] MEDS ORDERED: NA CHLORIDE 0.9% 100 ML ONE (21:46)
[2023-05-18] MEDS ORDERED: CEFEPIME 1 GM/VIAL ONE (21:46)
[2023-05-18 22:12] VITALS: BMI 23.7
--- NOTE | 2023-05-18 22:23 | RAD REPORT ---
EXAM DESCRIPTION: RAD - Cystography - 05/18/2023 10:18 pm CLINICAL HISTORY: STENT COMPARISON: No comparisons FINDINGS: Total fluoro time: 0.10 minute.
[2023-05-18] MEDS ORDERED: NA CHLORIDE 0.9% 500 ML IV ONE (22:45)
[2023-05-18] MEDS: Ringers Lactate 1,000 ML IV SCH (22:49)
[2023-05-18] MEDS: METHYLPREDNISOLONE 125 MG INJ IV SCH (23:07)
[2023-05-18] MEDS ORDERED: VANCOMYCIN 1 GM/VIAL ONE (23:11)
[2023-05-18] MEDS ORDERED: NA CHLORIDE 0.9% 250 ML ONE (23:11)
[2023-05-18] MEDS ORDERED: VANCOMYCIN 500 MG/VIAL ONE (23:12)
[2023-05-18] MEDS: HYDROCODONE/APAP 5/325 MG TAB PO PRN (23:21)
[2023-05-18] MEDS ORDERED: VANCOMYCIN 1.25 GM in NA CHLORIDE 0.9% 250 ML IVPB SCH (23:55)
[2023-05-19] MEDS: Meropenem 500 MG in NA CHLORIDE 0.9% 100 ML IV SCH ×3 (00:04→17:27)
[2023-05-19] MEDS ORDERED: VANCOMYCIN 250 MG in NA CHLORIDE 0.9% 50 ML IVPB ONE (00:30)
--- NOTE | 2023-05-19 02:37 | OP ---
Surgeon: ABNER LOMAS Preoperative Diagnoses: 1.Right obstructive ureterolithiasis. 2.Right hydronephrosis. 3.Complicated urinary tract infection with SIRS, possible sepsis. 4.Altered mental status. 5.Acute kidney injury. Postoperative Diagnoses: 1.Right obstructive ureterolithiasis. 2.Right hydronephrosis. 3.Complicated urinary tract infection with SIRS, possible sepsis. 4.Altered mental status. 5.Acute kidney injury. Principal Procedures: 1.Cystoscopy. 2.Right retrograde pyelography. 3.Right ureteral stent placement. Indication For Procedure: Mr. Diaz is a 77-year-old gentleman with an aortic pig valve, DM2, hypert ension, CKD, CAD with 5 stents on aspirin and Plavix, history of prostate cancer, post EBRT over 20 y ears ago, and status post TURP, with postprocedure incontinence requiring pads, now with complicated UTI and SIRS, possible sepsis, with altered mental status decompensation in the setting of acute kidn ey injury secondary to a 6 mm proximal right ureteral obstructing calculus with right hydronephrosis. He presents for definitive management of his obstruction to relieve the concern for development of sepsis. Procedure In Detail: The patient was consented in the preoperative holding area before being transfe rred to the operative suite where general anesthesia was induced. He had been given ceftriaxone 1 g in the Emergency Department, but because he was actively febrile in the perioperative space, I broade kelton his antimicrobial coverage to include cefepime 1 g IV. Pneumo boots were provided for DVT prophy laxis. He was placed in the lithotomy position, padded and secured to the table appropriately. His genitalia were prepped with Hibiclens and he was draped in standard fashion. The case was begun usin g a 22-[place] rigid cystoscope to traverse the urethra and into the bladder with ease. Of note, ther e was mild meatal stenosis, but this was surpassable with gentle pressure of the scope. There was ev idence of a widely patent TUR defect with resection of the verumontanum, likely resulting in his flui d incontinence. Upon entry into the bladder, the urine was cloudy and was decompressed. I then refi lled the bladder with sterile saline and surveyed it. There were no papillary mucosal lesions, or fo reign bodies other than the presence of a small calculus approximately 4 to 5 mm dependent within the bladder. There was evidence of some mild cystitis within the bladder. The right ureteral orifice w as orthotopic in location and cannulated using the tip of a 5-[place] ureteral access catheter. I the n performed a retrograde pyelogram. 1.Right retrograde pyelography: 2.Using a 70:30 mixture of Omnipaque and saline, contrast was injected via the lumen of the 5-[place] ureteral access catheter and did propagate up the distal into the mid and proximal ureter with a jennifer y delayed transit time indicative of the ongoing obstruction. Just prior to the contrast entering th e actual collecting system, I discontinued instillation of the contrast and observed it slowly propag ating into the renal pelvis and eventually fill the calyces indicating the appropriate renal location . I then passed a Sensor wire via the 5-[place] ureteral access catheter and up the ureter, coiling i t within the upper pole of the kidney. I removed the 5-[place] ureteral access catheter, and over the Sensor wire, I passed a 6-[place] by 26 cm double-J ureteral stent with a coil observed fluoroscopica lly in the renal pelvis and 1 cystoscopically formed in his bladder. I then decompressed his bladder of more cloudy urine before ultimately placing an 18-[place] coude Peters catheter with ease. I place d 10 cc of sterile saline in the balloon as the catheter was only to remain in place for 24 to 48 catie rs, while his acute infection resolved, and hopefully his SIRS and altered mental status. Once that resolves, he certainly could have the catheter removed. The patient was then taken out of the lithot ayden position, he was awakened from general anesthesia, transferred to a stretcher, and then transferr ed to the recovery room in good condition. Complications: None. Discharge Disposition: He should keep the urethral Peters catheter until the acuity of his infectious episode resolves and he is back to his baseline in terms of mental status and preferably afebrile. The medical team should await the results of cultures per routine and treat to sensitivities provided dependent on whether he actually was septic or simply manifested evidence of a complicated UTI. Sruthi nwhile, I recommend they continue cefepime q.24 hours for more advanced antimicrobial therapy to stav e off progression of the sepsis. He should follow up with me in the Urology Clinic once this infecti on is resolved and he is discharged from the hospital, where we will re-evaluate him and planned defi nitive management of not only his right obstructive ureterolithiasis, but the known left-sided nephro lithiasis. WR/MODL Voice ID: [id number] Report ID: [id number]
[2023-05-19] MEDS: HYDROCODONE/APAP 5/325 MG TAB PO PRN ×4 (03:25→20:23)
[2023-05-19] MEDS: METHYLPREDNISOLONE 125 MG INJ IV SCH (05:00)
[2023-05-19] MEDS: Ringers Lactate 1,000 ML IV SCH ×3 (05:00→20:26)
[2023-05-19 07:29] LABS: RBC Red Blood Cell Count 3.12 M/uL (4.33-5.43)
[2023-05-19 07:30] LABS: Absolute Lymphocytes (CBC) 0.6 K/uL (0.7-4.9); Hematocrit 29.2 % (39.6-49.0); Lymphocytes % 4.5 % (15.3-44.8); MCV 93.6 fL (80-100)
[2023-05-19 07:36] LABS: Albumin 2.3 g/dL (3.4-5.0); Bilirubin Direct 0.2 mg/dL (0-0.2); Bilirubin Indirect, Calculated 0.3 mg/dL (0.2-0.8); Bilirubin Total 0.5 mg/dL (0.2-1.0); Magnesium 2.2 mg/dL (1.6-2.4); Phosphorus 4.4 mg/dL (2.5-4.9); Potassium 4.9 mEq/L (3.5-5.1); Uric Acid 6.4 mg/dL (3.5-7.2)
[2023-05-19 07:44] LABS: Platelets 66 thou/uL (152-406)
[2023-05-19 07:52] LABS: Specific Gravity 1.008 (1.005-1.030); Urine Bacteria <20 /HPF (<20); Urine Bilirubin NEGATIVE (Negative); Urine Blood 3+ (OVER) (Negative); Urine Clarity Extremely Turbid (Clear); Urine Color Colorless (Yellow); Urine Glucose 4+ (Negative); Urine Mucus Slight /HPF (None Seen); Urine Protein 2+ (Negative); Urine RBC >50 /HPF (None Seen); Urine Urobilinogen Normal (Normal); Urine WBC Clump Rare /HPF (None Seen); Urine pH 5.5 (5.0-7.0)
[2023-05-19] MEDS ORDERED: VANCOMYCIN 1.25 GM in NA CHLORIDE 0.9% 250 ML IVPB SCH (09:00)
--- NOTE | 2023-05-19 09:07 | P.CNS ---
Date of Consult: 05/19/23 Chief Complaint: Right flank pain History of Present Illness: Patient is a 69-year-old male with a past medical history of AVR replacement, diabetes type 2, hypertension, CKD, CAD, history prostate cancer who presented to the ED with complaints of urinary tract infection. He was found to have sepsis secondary to complicated UTI associated with obstructing right ureteral calculus. Blood and urine cultures obtained, pending. Patient was started on meropenem and vancomycin. Urology and infectious disease consulted. Allergies metformin Allergy (Verified 05/18/23 20:06) ITCHING/ SWELLING Home Medications: Alendronate Sodium 70 mg PO EVERY 7TH DAY 05/18/23 Cefuroxime Axetil [Cefuroxime] 500 mg PO BID 05/18/23 Clopidogrel Bisulfate [Plavix] 75 mg PO DAILY 05/18/23 Empagliflozin [Jardiance] 25 mg PO DAILY 05/18/23 Famotidine 40 mg PO DAILY 05/18/23 Latanoprostene Bunod [Vyzulta] 5 ml OP BEDTIME 05/18/23 Metoprolol Tartrate [Lopressor] 25 mg PO BID 05/18/23 Simvastatin 40 mg PO BEDTIME 05/18/23 - Past Medical/Surgical History Diabetic: Yes -: NIDDM -: Prostate CA -: Kidney Disease -: HTN - Social History Alcohol use: No CD- Drugs: No Caffeine use: Yes Review of Systems 10-point ROS is otherwise unremarkable Genitourinary: Dysuria Musculoskeletal: Back Pain Physical Examination Temp Pulse Resp BP Pulse Ox 97.0 F 63 18 147/65 H 96 05/19/23 08:00 05/19/23 08:00 05/19/23 08:00 05/19/23 08:00 05/19/23 08:00 General: Alert, In no apparent distress, Oriented x3 HEENT: Atraumatic Neck: Supple, JVD not distended Respiratory: Normal air movement (on room air), Diminished Cardiovascular: Edema (trace BLE edema) Gastrointestinal: Normal bowel sounds, Soft and benign Musculoskeletal: No clubbing Integumentary: No rashes Neurological: Normal speech Urinary: Peters catheter Laboratory Data - Reviewed Microbiology Data - Reviewed Imagings Data: - Reviewed Conclusions/Impression: Problem list Complicated UTI Obstructing Right Ureteral Calculus Right Hydronephrosis Diabetes type 2 Hypertension CKD CAD s/p 5 stents Anemia History aortic valve replacement History prostate cancer Complicated urinary tract infection Obstructing right ureteral calculus Right Hydronephrosis -Blood cultures 05/18: Gramstain preliminary with Gram negative rods in 4 of 4 bottles -Urine cultures 05/18: pending -Currently on meropenem (05/18-) and vancomycin (05/20) - s/p cystoscopy, right retrograde pyelography and right ureteral stent placement on 05/[address] Celaya - urology Dr. Celaya following Leukocytosis WBC 14 24-hour Tmax 101.1 F Recommendations - preliminary gram stain with gram negative rods in 4 of 4 bottles. Continue Meropenem for now. Discontinue Vancomycin. - Follow-up with final urine and blood culture results. Will adjust antibiotics as appropriate. - Monitor WBC and fever trends. As needed Tylenol - Follow up with urologist in 2 weeks. See urology note for further recommendations Case discussed with Guillaume Hendrix
[2023-05-19 10:11] LABS: UR MICROALBUMIN 46.3 mg/dL (< 1.9); UR PROTEIN 110.5 mg/dL (<11.9); Urine Protein/Creatinine Ratio 3.35 ratio (<0.15)
[2023-05-19 10:15] LABS: Blood Morphology Comment NOT SEEN (NOT SEEN); Platelet Estimate DECR; Platelets, Giant FEW; Toxic Granulation NOTED; White Blood Cell Scan OK (OK)
--- NOTE | 2023-05-19 14:04 | P.CNS ---
Date of Consult: 05/19/23 Reason for Consult: LM Requesting Physician: Zully Escobedo Chief Complaint: Right flank pain History of Present Illness: 77-year-old male with primary medical history of diabetes hypertension prostrate cancer kidney disease presented to the ER with flank pain of the little left low back and right low back . Patient denies abdominal pain fever nausea vomiting. Patient was recently seen by his primary care provider and prescribed cefuroxime for UTI but patient often stopped taking it because it gave him diarrhea today he reports he continued dysuria and new bilateral flank pain. Labs shows elevated WBCs of 25.2, hemoglobin 11.2 low ,hematocrit 34 low, platelet count of 129 low ,serum potassium 5.3 high ,chloride of 110 low, BUN 43 elevated ,creatinine elevated 2.46, GFR low ,126 blood glucose 129 positive urine jorge lysis. CT abdomen stone protocol shows 6 mm calculus proximal right ureter resulting in moderate right hydronephrosis. Vital signs on admission blood pressure 101/56, pulse 69, respirations 16, temperature 98.2 Patient is admitted floor with a diagnosis UTI, kidney stone, acute kidney injury 10:20 This 77 yrs old Male presents to ER via Ambulatory with complaints of Urinary Problem - sb4 Burning. 10:20 The patient presents with flank pain, of the left low back and right low back, urinary sb4 symptoms, dysuria. Onset: The symptoms/episode began/occurred 1 week(s) ago. Modifying factors: The symptoms are alleviated by nothing, the symptoms are aggravated by nothing. Associated signs and symptoms: Pertinent negatives: abdominal pain, fever, nausea, vomiting. The patient has not experienced similar symptoms in the past. The patient has been recently seen by a physician: the patient's primary care provider. patient with UTI x 1 week. PCP prescribed cefuroxime but patient stopped taking it because it gave him diarrhea. today he reports continued dysuria and new bilateral flank pain. No NSAIDs. Prostatectomy. Dysuria. Allergies metformin Allergy (Verified 05/18/23 20:06) ITCHING/ SWELLING Home medications list reviewed: Yes Home Medications: Alendronate Sodium 70 mg PO EVERY 7TH DAY 05/18/23 Cefuroxime Axetil [Cefuroxime] 500 mg PO BID 05/18/23 Clopidogrel Bisulfate [Plavix] 75 mg PO DAILY 05/18/23 Latanoprostene Bunod [Vyzulta] 1 drop OP BEDTIME 05/18/23 Metoprolol Tartrate [Lopressor] 25 mg PO BID 05/18/23 Simvastatin 40 mg PO BEDTIME 05/18/23 Aspirin 81 mg PO DAILY 05/19/23 Insulin Glargine,Hum.rec.anlog [Insulin Glargine] 20 units SQ BEDTIME 05/19/23 Insulin Glargine,Hum.rec.anlog [Lantus] 20 units SQ BID 05/19/23 Semaglutide [Ozempic] 0.25 mg SQ EVERY 7TH DAY 05/19/23 - Past Medical/Surgical History Diabetic: Yes -: NIDDM -: Prostate CA -: CKD -: HTN - Social History Alcohol use: No CD- Drugs: No Caffeine use: Yes Review of Systems 10-point ROS is otherwise unremarkable Genitourinary: Dysuria Physical Examination Temp Pulse Resp BP Pulse Ox 97.5 F 74 14 131/65 96 05/19/23 12:00 05/19/23 12:00 05/19/23 12:00 05/19/23 12:00 05/19/23 12:00 General: In no apparent distress, Oriented x3, Cooperative HEENT: Atraumatic Neck: Supple Respiratory: Clear to auscultation bilaterally Cardiovascular: No edema, Regular rate/rhythm Gastrointestinal: Soft and benign, Non-distended Musculoskeletal: No clubbing, No contractures Integumentary: No rashes, No cyanosis Neurological: Normal speech Urinary: Peters catheter Blood work reviewed in the chart. Imagings Data: EXAM DESCRIPTION: CT - Stone Protocol - 05/18/2023 10:37 am CLINICAL HISTORY: Abdominal pain. Flank pain COMPARISON: 2016 TECHNIQUE: Computed axial tomography of the abdomen pelvis was obtained without oral or IV contrast. Lack of IV and oral contrast limits evaluation of solid organs, appendix, bowel, and vessels. Coronal reformatted images were obtained and reviewed. All CT scans are performed using dose optimization technique as appropriate and may include automated exposure control or mA/KV adjustment according to patient size. FINDINGS: Moderate right hydronephrosis. A right renal calculus is not seen. 6 millimeter calculus proximal right ureter. Several small left renal calculi. No hydronephrosis. No bladder calculus Prostatectomy with lymph node dissection. The liver, spleen, pancreas and adrenals appear grossly normal There is no evidence of diverticulitis. Prominent vascular calcifications IMPRESSION: 6 millimeter calculus proximal right ureter resulting in moderate right hydronephrosis Conclusions/Impression: Stage I LM likely due to hypovolemia and complicated by an obstructing right ureter calculus CKD III with Proteinuria -No NSAIDs -Right ureter stent placed by urology -Continue IVF Hyperkalemia, resolved NAG Metabolic Acidosis -Continue IVF Hypoalbuminemia -Recommend protein supplementation Anemia in chronic illness Thrombocytopenia -Monitor CBC Complicated UTI Bacteremia -Continue Abx; monitor vanco level -ID following Urology and ID notes reviewed Thank you kindly for the consultation
[2023-05-19] MEDS ORDERED: Meropenem 1,000 MG in NA CHLORIDE 0.9% 100 ML IV SCH (23:00)
[2023-05-19] MEDS: METOPROLOL TAR 25 MG TAB PO SCH (23:35)
[2023-05-20] MEDS: Meropenem 500 MG in NA CHLORIDE 0.9% 100 ML IV SCH ×3 (00:52→17:00)
[2023-05-20] MEDS: HYDROCODONE/APAP 5/325 MG TAB PO PRN ×4 (01:24→14:53)
[2023-05-20 06:52] LABS: Absolute Lymphocytes (CBC) 0.4 K/uL (0.7-4.9); Hematocrit 30.1 % (39.6-49.0); Lymphocytes % 2.6 % (15.3-44.8); MCV 93.2 fL (80-100); MPV 9.5 fL (7.6-11.3); Platelets 67 thou/uL (152-406); RBC Red Blood Cell Count 3.22 M/uL (4.33-5.43)
[2023-05-20 07:10] LABS: Magnesium 2.1 mg/dL (1.6-2.4); Phosphorus 3.7 mg/dL (2.5-4.9); Potassium 4.6 mEq/L (3.5-5.1)
[2023-05-20 08:15] LABS: Blood Morphology Comment NOT SEEN (NOT SEEN); Platelet Estimate DECR; Platelets, Giant FEW PRESENT
[2023-05-20] MEDS: CLOPIDOGREL 75 MG TABLET PO SCH (08:48)
[2023-05-20] MEDS: Ringers Lactate 1,000 ML IV SCH ×3 (08:48→21:38)
[2023-05-20] MEDS: METOPROLOL TAR 25 MG TAB PO SCH ×2 (08:48→20:44)
[2023-05-20] MEDS: ASPIRIN 81 MG CHEWABLE TABLET PO SCH (08:48)
[2023-05-20] MEDS ORDERED: VANCOMYCIN 1.5 GM in NA CHLORIDE 0.9% 500 ML IVPB SCH (12:30)
[2023-05-20] MEDS ORDERED: BISACODYL E.C. 5 MG TAB PO ONE (14:12)
[2023-05-20] MEDS ORDERED: NA CHLORIDE 0.9% 500 ML IV ONE (15:22)
--- NOTE | 2023-05-20 20:28 | P.PN ---
Date of Service: 05/20/23 Vital Signs Temp Pulse Resp BP Pulse Ox 97.3 F 60 18 119/57 L 95 05/20/23 16:00 05/20/23 16:00 05/20/23 16:00 05/20/23 16:00 05/20/23 16:00 Medications Acetaminophen (Acetaminophen 500 Mg Tab) 500 mg PO Q4HP PRN PRN Reason: Pain scale 2-4 (Mild) Hydrocodone Bitart/Acetaminophen (Hydrocodone/Apap 5/325 Mg Tab) 1 tab PO Q4H PRN PRN Reason: Pain scale 5-7 (Moderate) Last Admin: 05/20/23 14:53 Dose: 1 tab Aspirin (Aspirin 81 Mg Chewable Tablet) 81 mg PO DAILY [facility] Last Admin: 05/20/23 08:48 Dose: 81 mg Atorvastatin Calcium (Atorvastatin 20 Mg Tab) 20 mg PO BEDTIME [facility] Clopidogrel Bisulfate (Clopidogrel 75 Mg Tablet) 75 mg PO DAILY [facility] Last Admin: 05/20/23 08:48 Dose: 75 mg Fentanyl Citrate (Fentanyl Citr 100 Mcg/2 Ml) 25 mcg IV Q4H PRN PRN Reason: Pain scale 8-10 (Severe) Last Admin: 05/18/23 20:15 Dose: 25 mcg Lactated Ringer's (Lactated Ringers) 1,000 mls @ 125 mls/hr IV .Q8H [facility] Last Admin: 05/20/23 15:00 Dose: Not Given Meropenem 500 mg/ Sodium (Chloride) 100 mls @ 200 mls/hr IV Q8HR [facility] Last Admin: 05/20/23 17:00 Dose: 100 mls Vancomycin HCl 1.5 gm/ Sodium (Chloride) 500 mls @ 250 mls/hr IVPB Q36H [facility] Stop: 05/23/23 14:29 Last Admin: 05/20/23 12:41 Dose: 500 mls Insulin Glargine (Insulin Glargine 100 Unit/Ml) 20 unit SQ BEDTIME [facility] Last Admin: 05/19/23 23:36 Dose: 20 unit Latanoprost (Latanoprost 0.005% 2.5ml Opth) 1 drops OPTH BEDTIME [facility] Metoprolol Tartrate (Metoprolol Tar 25 Mg Tab) 25 mg PO BID [facility] Last Admin: 05/20/23 08:48 Dose: 25 mg Ondansetron HCl (Ondansetron 4 Mg/2 Ml Vial) 4 mg IV Q6HP PRN PRN Reason: NAUSEA / VOMITING Last Admin: 05/18/23 16:56 Dose: 4 mg Sodium Chloride (Flush Normal Saline 10 Ml) 10 ml IV BID SANKET Last Admin: 05/20/23 08:43 Dose: Not Given Microbiology Results 05/18/23 12:55 Clean Catch Urine [place] Count - Preliminary BETWEEN 10,000 & 100,000 CFU/ML 05/18/23 12:55 Clean Catch Urine - Preliminary Gram Neg Osmani 05/18/23 13:00 Blood - Blood Aerobic Blood Culture - Preliminary Gram Neg Osmani 05/18/23 13:00 Blood - Blood Blood Culture Gram Stain - Final 05/18/23 13:00 Blood - Blood Anaerobic Blood Culture - Preliminary Gram Neg Osmani 05/18/23 13:00 Blood - Blood Gram Stain - Final 05/18/23 12:50 Blood - Blood Aerobic Blood Culture - Preliminary Gram Neg Osmani 05/18/23 12:50 Blood - Blood Blood Culture Gram Stain - Final 05/18/23 12:50 Blood - Blood Anaerobic Blood Culture - Preliminary Gram Neg Osmani 05/18/23 12:50 Blood - Blood Gram Stain - Final Assessment/ Plan: Nephrology No dyspnea No chest pain Feeling better No acute events overnight Vitals, medications, blood work and imaging reviewed in the chart. General: In no apparent distress, Oriented x3, Cooperative HEENT: Atraumatic Neck: Supple Respiratory: Clear to auscultation bilaterally Cardiovascular: No edema, Regular rate/rhythm Gastrointestinal: Soft and benign, Non-distended Musculoskeletal: No clubbing, No contractures Integumentary: No rashes, No cyanosis Neurological: Normal speech Urinary: Peters catheter Blood work reviewed in the chart. Imagings Data: EXAM DESCRIPTION: CT - Stone Protocol - 05/18/2023 10:37 am CLINICAL HISTORY: Abdominal pain. Flank pain COMPARISON: 2016 TECHNIQUE: Computed axial tomography of the abdomen pelvis was obtained without oral or IV contrast. Lack of IV and oral contrast limits evaluation of solid organs, appendix, bowel, and vessels. Coronal reformatted images were obtained and reviewed. All CT scans are performed using dose optimization technique as appropriate and may include automated exposure control or mA/KV adjustment according to patient size. FINDINGS: Moderate right hydronephrosis. A right renal calculus is not seen. 6 millimeter calculus proximal right ureter. Several small left renal calculi. No hydronephrosis. No bladder calculus Prostatectomy with lymph node dissection. The liver, spleen, pancreas and adrenals appear grossly normal There is no evidence of diverticulitis. Prominent vascular calcifications IMPRESSION: 6 millimeter calculus proximal right ureter resulting in moderate right hydronephrosis Conclusions/Impression: Stage I LM likely due to hypovolemia and complicated by an obstructing right ureter calculus CKD III with Proteinuria -No NSAIDs -Right ureter stent placed by urology -Continue IVF Hyperkalemia, resolved NAG Metabolic Acidosis -Continue IVF Hypoalbuminemia -Recommend protein supplementation Anemia in chronic illness Thrombocytopenia -Monitor CBC Complicated UTI Bacteremia -Continue Abx; monitor vanco level -ID following Hospitalist note reviewed
[2023-05-20] MEDS ORDERED: LATANOPROST 0.005% 2.5ML OPTH OPTH SCH (21:00)
[2023-05-20] MEDS ORDERED: ATORVASTATIN 20 MG TAB PO SCH (21:00)
[2023-05-20] MEDS ORDERED: INSULIN GLARGINE 100 UNIT/ML SQ SCH (21:00)
[2023-05-20 21:48] VITALS: O2SAT 97
[2023-05-21] MEDS: Meropenem 500 MG in NA CHLORIDE 0.9% 100 ML IV SCH ×2 (00:12→08:26)
[2023-05-21] MEDS: HYDROCODONE/APAP 5/325 MG TAB PO PRN ×3 (00:12→12:28)
--- NOTE | 2023-05-21 01:54 | P.PN ---
Date of Service: 05/19/23 Subjective Patient is doing well with no new complaints Physical Examination - Vital Signs reviewed - Physical Exam General: Alert, Oriented x3 HEENT: WNL Respiratory: Clear to auscultation bilaterally Cardiovascular: No edema, Normal S1 S2 Gastrointestinal: Minimal flank tenderness Musculoskeletal: No clubbing, No edema Neuro: no focal deficits Assessment and Plan - Assessment Assessment UTI Kidney stone Acute kidney injury - Plan Plan UTI with bacteremia: -IV abx -IV fluids -We will continue to monitor labs Kidney stone; -Acute, CT abdomen stone protocol shows 6 mm calculus proximal right ureter resulting in moderate right hydronephrosis. -s/p cystoscopy with stent placement Discharge Plan: Home
[2023-05-21 05:46] LABS: Hematocrit 30.3 % (39.6-49.0); Lymphocytes % 7.9 % (15.3-44.8); MCV 93.6 fL (80-100); MPV 10.2 fL (7.6-11.3); Platelets 62 thou/uL (152-406); RBC Red Blood Cell Count 3.24 M/uL (4.33-5.43)
[2023-05-21 05:57] LABS: Magnesium 2.1 mg/dL (1.6-2.4); Potassium 4.6 mEq/L (3.5-5.1)
[2023-05-21] MEDS: Ringers Lactate 1,000 ML IV SCH (08:26)
[2023-05-21] MEDS: ASPIRIN 81 MG CHEWABLE TABLET PO SCH (08:27)
[2023-05-21] MEDS: METOPROLOL TAR 25 MG TAB PO SCH (08:28)
[2023-05-21] MEDS: CLOPIDOGREL 75 MG TABLET PO SCH (08:28)
[2023-05-21 12:32] VITALS: BP 164/89
[2023-05-21 12:44] VITALS: TEMP 97.6
[2023-05-21] MEDS ORDERED: levoFLOXacin 500 MG TAB PO ONE (13:57)
[2023-05-21] MEDS ORDERED: NACHLORIDE 0.45% 1,000 ML IV SCH (14:00)
--- NOTE | 2023-05-21 19:17 | P.PN ---
Date of Service: 05/21/23 Vital Signs Temp Pulse Resp BP Pulse Ox 97.6 F 62 18 164/89 H 98 05/21/23 12:43 05/21/23 12:43 05/21/23 12:43 05/21/23 12:43 05/21/23 12:43 Microbiology Results 05/18/23 12:55 Clean Catch Urine [place] Count - Preliminary BETWEEN 10,000 & 100,000 CFU/ML 05/18/23 12:55 Clean Catch Urine - Preliminary Escherichia Coli Gram Neg Osmani 05/18/23 13:00 Blood - Blood Aerobic Blood Culture - Final Gram Neg Osmani Escherichia Coli 05/18/23 13:00 Blood - Blood Blood Culture Gram Stain - Final 05/18/23 13:00 Blood - Blood Anaerobic Blood Culture - Final Gram Neg Osmani Escherichia Coli 05/18/23 13:00 Blood - Blood Gram Stain - Final 05/18/23 12:50 Blood - Blood Aerobic Blood Culture - Final Gram Neg Osmani Escherichia Coli 05/18/23 12:50 Blood - Blood Blood Culture Gram Stain - Final 05/18/23 12:50 Blood - Blood Anaerobic Blood Culture - Final Gram Neg Osmani Escherichia Coli 05/18/23 12:50 Blood - Blood Gram Stain - Final Assessment/ Plan: Nephrology No dyspnea No chest pain Feeling better No acute events overnight Vitals, medications, blood work and imaging reviewed in the chart. General: In no apparent distress, Oriented x3, Cooperative HEENT: Atraumatic Neck: Supple Respiratory: Clear to auscultation bilaterally Cardiovascular: No edema, Regular rate/rhythm. LE Edema 1+ Gastrointestinal: Soft and benign, Non-distended Musculoskeletal: No clubbing, No contractures Integumentary: No rashes, No cyanosis Neurological: Normal speech Urinary: Peters catheter Blood work reviewed in the chart. Imagings Data: EXAM DESCRIPTION: CT - Stone Protocol - 05/18/2023 10:37 am CLINICAL HISTORY: Abdominal pain. Flank pain COMPARISON: 2016 TECHNIQUE: Computed axial tomography of the abdomen pelvis was obtained without oral or IV contrast. Lack of IV and oral contrast limits evaluation of solid organs, appendix, bowel, and vessels. Coronal reformatted images were obtained and reviewed. All CT scans are performed using dose optimization technique as appropriate and may include automated exposure control or mA/KV adjustment according to patient size. FINDINGS: Moderate right hydronephrosis. A right renal calculus is not seen. 6 millimeter calculus proximal right ureter. Several small left renal calculi. No hydronephrosis. No bladder calculus Prostatectomy with lymph node dissection. The liver, spleen, pancreas and adrenals appear grossly normal There is no evidence of diverticulitis. Prominent vascular calcifications IMPRESSION: 6 millimeter calculus proximal right ureter resulting in moderate right hydronephrosis Conclusions/Impression: Stage I LM likely due to hypovolemia and complicated by an obstructing right ureter calculus CKD III with Proteinuria -No NSAIDs -Right ureter stent placed by urology -Reduce IVF due to lower extremity edema Hyperkalemia, resolved NAG Metabolic Acidosis -Reduce IVF Hypoalbuminemia -Recommend protein supplementation Anemia in chronic illness Thrombocytopenia -Monitor CBC Complicated UTI Bacteremia -Continue Abx; monitor vanco level -ID following Hospitalist note reviewed
== END 2023-05-21 15:55 | disposition home or self-care (01) | DRG 854 ==
LOC: ER 09:19 → ERHOLD 14:14 → 4TH 17:32
PROVIDERS: ADMIT Hospitalist; ATTEND Hospitalist
PROC: BT1D1ZZ Fluoroscopy of Right Kidney, Ureter and Bladder using Low Osmolar Contrast (ICD-10-PCS; 2023-05-18)
PROC: 0T768DZ Dilation of Right Ureter with Intraluminal Device, Via Natural or Artificial Opening Endoscopic (ICD-10-PCS; principal; 2023-05-18 20:30)
DX: A41.9 Sepsis, unspecified organism (principal); E87.20 Acidosis, unspecified; N13.6 Pyonephrosis; N17.9 Acute kidney failure, unspecified; I12.9 Hypertensive chronic kidney disease with stage 1 through stage 4 chronic kidney disease, or unspecified chronic kidney disease; N18.9 Chronic kidney disease, unspecified; E11.22 Type 2 diabetes mellitus with diabetic chronic kidney disease; D63.1 Anemia in chronic kidney disease; D63.8 Anemia in other chronic diseases classified elsewhere; D69.6 Thrombocytopenia, unspecified; E86.1 Hypovolemia; E87.5 Hyperkalemia; E88.09 Other disorders of plasma-protein metabolism, not elsewhere classified; I25.10 Atherosclerotic heart disease of native coronary artery without angina pectoris; Z95.2 Presence of prosthetic heart valve; Z95.5 Presence of coronary angioplasty implant and graft; Z88.8 Allergy status to other drugs, medicaments and biological substances; Z79.4 Long term (current) use of insulin; Z79.02 Long term (current) use of antithrombotics/antiplatelets; Z79.82 Long term (current) use of aspirin; Z85.46 Personal history of malignant neoplasm of prostate; Z91.148 Patient's other noncompliance with medication regimen for other reason
CPT/HCPCS: 36415; 51600; 74176; 74430; 76377; 80048; 80076; 80202; 81001; 82043; 82360; 82570; 82947; 83605; 83735; 84100; 84145; 84156; 84550; 85025; 85027; 87040; 87077; 87086; 87088; 87186; 87205; 88300; 96361; 96365; 99285; J0692; J0696; J2001; J2405; J2704; J2930; J3010; J7030; J7040; J7050; J7120; J7799

== ENCOUNTER 2023-05-22 02:44 | Observation (INO) | payer OTHER ==
--- OUTSIDE RECORDS SUMMARY | 2023-05-22 02:48 | XMS REPORT | Continuity of Care Document ---
:1945 Author Organization [facility] [place] t Address [address] [place] [address] [place] [id number] Care Team Providers Name Role Phone [facility] Primary Care Physician Unavailable Irma Abreu MD Attending Clinician Mirian Attending Clinician Unavailable Karo Graff MA Attending Clinician Unavailable CRUZ MONTANO Attending Clinician Unavailable Cruz Montano MD Attending Clinician Jayce Ocampo Attending Clinician [phone] Mirian Admitting Clinician Unavailable CRUZ MONTANO Admitting Clinician Unavailable IRMA ABREU Admitting Clinician Unavailable Payers Payer Name Policy Type Policy Number Effective Date Expiration Date S romy [employer]ET[employer] (MEDICARE [id number] 2021 REPLACEMENT PPO) 00:00:00 [employer] MANAGED [id number] 2021 MEDICARE PPO-ANGEL 00:00:00 Problems Condition Condition Condition Status Onset Resolution Last Treating Co mments Source Name Details Category Date Date Treatment Clinician Date Chronic Chronic Problem Active 2020-09 [facility] renal Renal 1-09 [facility] insufficie Insufficie 00:00: [...] to Not sure [facility] SARS-CoV-2 (event) [facility] History of Social 2022-12-14 2022-12-[address] function 00:00:00 00:00:00 Hospital Alcohol intake 2020-03-31 2020-03-31 Current [facility] 00:00:00 00:00:00 non-drinker of Hospital alcohol (finding) Tobacco use and 2018-01-30 2018-01-30 Smokeless [facility] exposure 00:00:00 00:00:00 tobacco non-user Hospital Sex Assigned At [birth year] [facility] 00:[facility]00 [facility] Smoking Status Start Date Stop Date Source Never smoked tobacco [facility] Medications Ordered Filled Start Stop Current Ordering Indication Dosage Frequency Signature Comments Components Source Medication Medication Date Date Medication? Clinician (SIG) Name Name simvastatin Yes [id number] TAKE 1 [facility] (ZOCOR) 40 9-[address] mg tablet 00:00: [facility] 00 EVERY DAY l AT NIGHT simvastatin 2022-0 Yes [id number] TAKE 1 [facility] (ZOCOR) 40 9-[address] mg tablet 00:00: MOUTH [facility] 00 EVERY DAY l AT NIGHT metoprolol 2022-0 Yes TAKE 1/2 [facility] tartrate 8-[address] (LOPRESSOR) 00:00: MOUTH Hospi ta 50 mg 00 TWICE A l tablet DAY WITH FOOD metoprolol 2022-0 Yes TAKE 1/2 [facility] tartrate 8-[address] (LOPRESSOR) 00:00: MOUTH Hospi ta 50 mg 00 TWICE A l tablet DAY WITH FOOD clopidogreL 0 Yes TAKE 1 [facility] (PLAVIX) 75 6-[address] mg tablet 00:00: MOUTH [facility] 00 EVERY DAY l clopidogreL 2022-0 Yes TAKE 1 [facility] (PLAVIX) 75 6-[address] mg tablet 00:00: MOUTH [facility]osp[facility] 00 EVERY DAY l aspirin 2022-0 Yes TAKE 1 [facility] (ECOTRIN) 6-[address] 81 MG 00:00: MOUTH [facility]ospita enteric 00 EVERY DAY l coated tablet aspirin 2022-0 Yes TAKE 1 [facility] (ECOTRIN) 6-[address] 81 MG 00:00: MOUTH [facility]ospita enteric 00 EVERY DAY l coated tablet amLODIPine- 2022-0 Yes 1{capsu QD Take 1 M ethodi benazepriL 5-22 le} capsule by st (LOTREL) 00:00: mouth Hospita 5-40 mg per 00 daily. l capsule amLODIPine- 0 Yes 1{capsu QD Take 1 M ethodi benazepriL 5-22 le} capsule by st (LOTREL) 00:00: mouth [facility]osp[facility] 5-40 mg per 00 daily. l capsule insulin Yes 60U Q.5D Inject 0.6 [facility] detemir 1-17 mL (60 st U-100 10:59: Units Hospita (LEVEMIR 28 total) l U-100 under the INSULIN) skin 2 100 unit/mL (two) injection times a day. cyanocobala 0 Yes 1000ug Take 1 Me thodi min 1-[address] (VITAMIN 10:59: (1,000 mcg Hos fredrick B-12) 1000 28 total) by l MCG tablet mouth. triptorelin Yes 1{dose} Q180D Inject 1 [facility] pamoate 1-[address] 22.5 mg 10:59: the Hospita suspension 28 shoulder, l for thigh, or reconstitut buttocks ion every 6 (six) months. insulin Yes 60U Q.5D Inject 0.6 [facility] detemir 1-17 mL (60 st U-100 10:59: Units Hospita (LEVEMIR 28 total) l U-100 under the INSULIN) skin 2 100 unit/mL (two) injection times a day. cyanocobala 0 Yes 1000ug Take 1 Me thodi min 1-[address] (VITAMIN 10:59: (1,000 mcg Hos fredrick B-12) 1000 28 total) by l MCG tablet mouth. triptorelin Yes 1{dose} Q180D Inject 1 [facility] pamoate 1-[address] 22.5 mg 10:59: the Hospita suspension 28 shoulder, l for thigh, or reconstitut buttocks ion every 6 (six) months. simvastatin 2021-09- No [id number] TAKE 1 [facility] (ZOCOR) 40 2-05 09-[address] mg tablet 00:00: 00:00 MOUTH Hospit a 00 :00 EVERY DAY l AT NIGHT simvastatin 2021-09- No [id number] TAKE 1 [facility] (ZOCOR) 40 2-05 -[address] mg tablet 00:00: 00:00 MOUTH Hospit a 00 :00 EVERY DAY l AT NIGHT metoprolol 2021-09- No TAKE 1/2 Me thodi tartrate 10-[address] (LOPRESSOR) 00:00: 00:00 MOUTH Hosp belinda 50 mg 00 :00 TWICE A l tablet DAY WITH FOOD metoprolol 2021-09- No TAKE 1/2 Me thodi tartrate 10-[address] (LOPRESSOR) 00:00: 00:00 MOUTH Hosp [facility] 50 mg 00 :00 TWICE A l tablet DAY WITH FOOD amLODIPine- 2021-09- No TAKE 1 Met [facility] benazepriL 1-14 -[address] (LOTREL) 00:00: 00:00 MOUTH Hospita 5-40 mg per 00 :00 EVERY DAY l capsule amLODIPine- 2021-09- No TAKE 1 Met [facility] benazepriL -14 -[address] (LOTREL) 00:00: 00:00 MOUTH Hospita 5-40 mg per 00 :00 EVERY DAY l capsule clopidogreL 2022- No TAKE 1 [facility] (PLAVIX) 75 7-14 06-[address] mg tablet 00:00: 00:00 MOUTH Hospit a 00 :00 EVERY DAY l clopidogreL 2021-0 2022- No TAKE 1 [facility] (PLAVIX) 75 7-14 06-[address] mg tablet 00:00: 00:00 MOUTH Hospit a 00 :00 EVERY DAY l aspirin 2021-0 2022- No TAKE 1 [facility] (ECOTRIN) 6-16 -[address] 81 MG 00:00: 00:00 MOUTH Hospita enteric 00 :00 EVERY DAY l coated tablet aspirin 2021-2022- No TAKE 1 [facility] (ECOTRIN) 6-16 -[address] 81 MG 00:00: 00:00 MOUTH Hospita enteric 00 :00 EVERY DAY l coated tablet amLODIPine- 2021- No TAKE 1 Met h[facility] benazepriL 5-17 -[address] (LOTREL) 00:00: 00:00 MOUTH Hospita 5-40 mg per 00 :00 EVERY DAY l capsule amLODIPine- 2021- No TAKE 1 [facility] benazepriL 5-17 11-[address] (LOTREL) 00:00: 00:00 MOUTH Hospita 5-40 mg per 00 :00 EVERY DAY l capsule barium 2021- No [id number] 680g 680 g, Unive rs sulfate 01-03 04-25 Oral, ity of (LIQUID E-Z 14:30: 15:45 ONCE, 1 Philipp BEST) 60 % 00 :00 dose, On [...] by intramuscu lar route. simvastatin 2020-09- No [id number] TAKE 1 [facility] (ZOCOR) 40 2-15 12-[address] mg tablet 00:00: 00:00 MOUTH Hospit a 00 :00 EVERY DAY l AT NIGHT simvastatin 2020-09- No [id number] TAKE 1 [facility] (ZOCOR) 40 2-15 12-[address] mg tablet 00:00: 00:00 MOUTH Hospit a 00 :00 EVERY DAY l AT NIGHT metoprolol 2020-09- No TAKE 1/2 Me thodi tartrate 10-[address] (LOPRESSOR) 00:00: 00:00 MOUTH Hosp belinda 50 mg 00 :00 TWICE A l tablet DAY WITH FOOD metoprolol 2020-09- No TAKE 1/2 Me thodi tartrate 10-[address] (LOPRESSOR) 00:00: 00:00 MOUTH [...] DOSE BY ity of up 180 00:00: [facility] [place] mcg/0.5 mL 00 Medical syringe Branch BD 2016-09 Yes 10mg Take 10 mg Univers ULTRAFINE 0-09 by mouth. ity o f III MINI 00:00: [place] PEN 31 Medical gauge x Branch 3/16" Ndle flu vaccine 2016-09 Yes INJECT 1 Un janeth 64 yrs and 0-09 DOSE BY ity of up 180 00:00: [facility] [place] mcg/0.5 mL 00 Medical syringe Branch BD 2016-09 Yes 10mg Take 10 mg Univers ULTRAFINE 0-09 by mouth. ity o f III MINI 00:00: [place] PEN 31 Medical gauge x Branch 3/16" Ndle latanoprost Yes INSTILL Met hodi (XALATAN) 2-[address] 0.005 % 00:00: IN BOTH Hospita ophthalmic 00 EYES AT l solution BEDTIME latanoprost Yes INSTILL Met hodi (XALATAN) 2-[address] 0.005 % 00:00: IN BOTH Hospita ophthalmic 00 EYES AT l solution BEDTIME amlodipine- Yes 1{capsu Take 1 U nivers benazepril 2-01 le} capsule by ity of 5-40 mg per 09:13: mouth [place] capsule 12 daily. Medical Branch clopidogrel Yes 75mg Take 75 mg Univers 75 mg 2-01 by mouth ity of tablet 09:13: daily. [place] [address] Medical Branch metoprolol Yes 25mg Take 25 mg U nivers tartrate 50 2-01 by mouth 2 it y of mg tablet 09:13: (two) [place] 12 times Medical daily. Branch simvastatin Yes 40mg Take 40 mg Univers 40 mg 2-01 by mouth ity of tablet 09:13: at [place] 12 bedtime. Medical Branch aspirin 81 2017 Yes 81mg Take 81 mg U nivers mg EC 2-01 by mouth ity of tablet 09:13: daily. [place] [address] Medical Branch lubiproston Yes 8ug Take 8 mcg Univers e 8 mcg 2-01 by mouth ity of capsule 09:13: daily. [place] [address] Medical Branch latanoprost Yes 1[drp] Place 1 [...] Pt takes once every 6 months amlodipine- 2017 Yes 1{capsu Take 1 U nivers benazepril 2-01 le} capsule by ity of 5-40 mg per 09:13: mouth [place] capsule 12 daily. Medical Branch clopidogrel 2017 Yes 75mg Take 75 mg Univers 75 mg 2-01 by mouth ity of tablet 09:13: daily. [place] [address] Medical Branch metoprolol 2017 Yes 25mg Take 25 mg U nivers tartrate 50 2-01 by mouth 2 it y of mg tablet 09:13: (two) [place] 12 times Medical daily. Branch simvastatin Yes 40mg Take 40 mg Univers 40 mg 2-01 by mouth ity of tablet 09:13: at [place] [address] bedtime. Medical Branch aspirin 81 Yes 81mg Take 81 mg U nivers mg EC 2-01 by mouth ity of tablet 09:13: daily. [place] [address] Medical Branch lubiproston Yes 8ug Take 8 mcg Univers e 8 mcg 2-01 by mouth ity of capsule 09:13: daily. [place] [address] Medical Branch latanoprost Yes 1[drp] Place 1 [...] Medical (18 mg/3 Branch mL) injection insulin 2017 Yes 25U inject 25 Unive rs detemir 2-01 Units ity of (LEVEMIR) 09:13: under the [place] as 100 unit/mL 12 skin 2 Medica l injection (two) Branch times daily. Triptorelin Yes 1{dose} 1 Dose by Univers Pamoate 10-12 Intramuscu ity of (TRELSTAR) 09:13: lar route [place] 22.5 mg/2 12 once now. Medic al mL Syrg Indication Branch s: Pt takes once every 6 months VICTOZA Yes INJECT [facility] 3-ANGELIA 0.6 1-[address] mg/0.1 mL 00:00: SKIN 1.2MG Ho spita (18 mg/3 00 DAILY l mL) pen injector VICTOZA Yes INJECT [facility] 3-ANGELIA 0.6 1-[address] mg/0.1 mL 00:00: SKIN 1.2MG Ho spita (18 mg/3 00 DAILY l mL) pen injector alendronate alendronate No 1 Q1W alendronat [facility] 70 mg 70 mg e 70 mg [facility] tablet Take tablet Take tablet Urology 1 tablet 1 tablet Take 1 every week every week tablet by oral by oral every week route. route. by oral route. amlodipine amlodipine No amlodipine [facility] 5 5 5 [facility] mg-benazepr mg-benazepr mg-benazep [...] MOUTH EVERY DAY clopidogrel clopidogrel No clopidogre [facility] 75 mg 75 mg l 75 mg [...] subcutaneo us route. latanoprost latanoprost No latanopros [facility] 0.005 % eye 0.005 % eye t 0.005 % [facility] drops drops eye drops Urology INSTILL 1 INSTILL 1 INSTILL 1 DROP INTO DROP INTO DROP INTO BOTH EYES BOTH EYES BOTH EYES AT BEDTIME AT BEDTIME AT BEDTIME lorazepam 1 lorazepam 1 No lorazepam [place] mg tablet mg tablet 1 mg [facility] tablet Urology Lupron Lupron No 45mg Lupron [facility] [place] 45 mg [place] 45 mg [place] 45 [facility] (6 Month) (6 Month) mg (6 Urol ogy intramuscul intramuscul Month) ar syringe ar syringe intramuscu kit Inject kit Inject lar 45 mg by 45 mg by syringe intramuscul intramuscul kit Inject ar route. ar route. 45 mg by intramuscu lar route. metoprolol metoprolol No metoprolol [facility] tartrate 50 tartrate 50 tartrate [facility] mg tablet mg tablet 50 mg Urol ogy TAKE 1/2 TAKE 1/2 tablet TABLET BY TABLET BY TAKE 1/2 MOUTH TWICE MOUTH TWICE TABLET BY A DAY WITH A DAY WITH MOUTH FOOD FOOD TWICE A DAY WITH FOOD simvastatin simvastatin No simvastati [facility] 40 mg 40 mg n 40 mg [facility] tablet TAKE tablet TAKE tablet Urology 1 TABLET BY 1 TABLET BY TAKE 1 MOUTH EVERY MOUTH EVERY TABLET BY DAY AT DAY AT MOUTH NIGHT NIGHT EVERY DAY AT NIGHT sodium sodium No sodium [facility] fluoride fluoride fluoride Met ro 1.1 % [...] DAILY ONCE DAILY alendronate alendronate No alendronat [facility] 70 mg 70 mg e 70 mg [facility] tablet TAKE tablet TAKE tablet Urology 1 TABLET BY 1 TABLET BY TAKE 1 MOUTH EVERY MOUTH EVERY TABLET BY WEEK WEEK MOUTH EVERY WEEK amlodipine amlodipine No amlodipine [facility] 5 mg tablet 5 mg tablet 5 mg M etro TAKE 1 TAKE 1 tablet Urology TABLET BY TABLET BY TAKE 1 MOUTH EVERY MOUTH EVERY TABLET BY DAY IN THE DAY IN THE MOUTH MORNING MORNING EVERY DAY IN THE MORNING amlodipine amlodipine No amlodipine [facility] 5 5 5 [facility] mg-benazepr mg-benazepr mg-benazep [...] MOUTH EVERY DAY clopidogrel clopidogrel No clopidogre [facility] 75 mg 75 mg l 75 mg [facility] tablet TAKE tablet TAKE tablet Urology 1 TABLET BY 1 TABLET BY TAKE 1 MOUTH EVERY MOUTH EVERY TABLET BY DAY DAY MOUTH EVERY DAY Farxiga 5 Farxiga 5 No 1 Q1D Hernanxiga 5 [place] mg tablet mg tablet mg [...] subcutaneo us route. latanoprost latanoprost No latanopros [facility] 0.005 % eye 0.005 % eye t 0.005 % [facility] drops drops eye drops Urology INSTILL 1 INSTILL 1 INSTILL 1 DROP INTO DROP INTO DROP INTO BOTH EYES BOTH EYES BOTH EYES AT BEDTIME AT BEDTIME AT BEDTIME lorazepam 1 lorazepam 1 No lorazepam [place] mg tablet mg tablet 1 mg [facility] tablet Urology Lupron Lupron No 45mg Lupron [place] 45 mg [place] 45 mg [place] 45 [facility] (6 Month) (6 Month) mg (6 Urol ogy intramuscul intramuscul Month) ar syringe ar syringe intramuscu kit Inject kit Inject lar 45 mg by 45 mg by syringe intramuscul intramuscul kit Inject ar route. ar route. 45 mg by intramuscu lar route. metoprolol metoprolol No metoprolol [facility] tartrate 50 tartrate 50 tartrate [facility] mg [...] route. us route. simvastatin simvastatin No simvastati [place] 40 mg 40 mg n 40 mg [...] route. route. route. alendronate alendronate No alendronat [facility] 70 mg 70 mg e 70 mg [facility] tablet TAKE tablet TAKE tablet Urology 1 TABLET BY 1 TABLET BY TAKE 1 MOUTH ONE MOUTH ONE TABLET BY TIME PER TIME PER MOUTH ONE WEEK WEEK TIME PER WEEK amlodipine amlodipine No amlodipine [facility] 5 5 5 [facility] mg-benazepr mg-benazepr mg-benazep [...] MOUTH EVERY DAY clopidogrel clopidogrel No clopidogre [facility] 75 mg 75 mg l 75 mg [facility] tablet TAKE tablet TAKE tablet Urology 1 TABLET BY 1 TABLET BY TAKE 1 MOUTH EVERY MOUTH EVERY TABLET BY DAY DAY MOUTH EVERY DAY erythromyci erythromyci No erythromyc [facility] n 5 mg/gram n 5 mg/gram in 5 M etro (0.5 %) eye (0.5 %) eye mg/gram Urology ointment ointment (0.5 %) APPLY AT APPLY AT eye BEDTIME FOR BEDTIME FOR ointment 1 WEEK TO 1 WEEK TO APPLY AT EYELIDS EYELIDS BEDTIME FOR 1 WEEK TO EYELIDS famotidine famotidine No famotidine [facility] 40 mg 40 mg 40 mg [facility] [...] subcutaneo us route. latanoprost latanoprost No latanopros [facility] 0.005 % eye 0.005 % eye t 0.005 % [facility] drops drops eye drops Urology INSTILL 1 INSTILL 1 INSTILL 1 DROP INTO DROP INTO DROP INTO BOTH EYES BOTH EYES BOTH EYES AT BEDTIME AT BEDTIME AT BEDTIME lorazepam 1 lorazepam 1 No lorazepam [place] mg tablet mg tablet 1 mg [facility] tablet Urology Lupron Lupron No 45mg Lupron [facility] [place] 45 mg [place] 45 mg [place] 45 [facility] (6 Month) (6 Month) mg (6 Urol ogy intramuscul intramuscul Month) ar syringe ar syringe intramuscu kit Inject kit Inject lar 45 mg by 45 mg by syringe intramuscul intramuscul kit Inject ar route. ar route. 45 mg by intramuscu lar route. metoprolol metoprolol No metoprolol [facility] tartrate 50 tartrate 50 tartrate [facility] mg [...] DIRECTED DIRECTED DIRECTED simvastatin simvastatin No simvastati [facility] 40 mg 40 mg n 40 mg [facility] tablet TAKE tablet TAKE tablet Urology 1 TABLET BY 1 TABLET BY TAKE 1 MOUTH EVERY MOUTH EVERY TABLET BY DAY AT DAY AT MOUTH NIGHT NIGHT EVERY DAY AT NIGHT sodium sodium No sodium [facility] fluoride fluoride fluoride Met ro 1.1 % [...] Uloric 40 No 1 Q1D U[place] 40 [facility] mg tablet mg tablet mg tablet [facility] Take 1 Take 1 Take 1 Urology tablet tablet tablet every day every day every day by oral by oral by oral route. route. route. alendronate alendronate No 1 Q1W alendronat [facility] 70 mg 70 mg e 70 mg [facility] tablet Take tablet Take tablet Urology 1 tablet 1 tablet Take 1 every week every week tablet by oral by oral every week route. route. by oral route. amlodipine amlodipine No amlodipine [facility] 5 5 5 [facility] mg-benazepr mg-benazepr mg-benazep [...] MOUTH EVERY DAY clopidogrel clopidogrel No clopidogre [facility] 75 mg 75 mg l 75 mg [...] route. us route. famotidine famotidine No famotidine [facility] 40 mg 40 mg 40 mg [facility] [...] subcutaneo us route. latanoprost latanoprost No latanopros [facility] 0.005 % eye 0.005 % eye t 0.005 % [facility] drops drops eye drops Urology INSTILL 1 INSTILL 1 INSTILL 1 DROP INTO DROP INTO DROP INTO BOTH EYES BOTH EYES BOTH EYES AT BEDTIME AT BEDTIME AT BEDTIME metoprolol metoprolol No metoprolol [facility] tartrate 50 tartrate 50 tartrate [facility] mg [...] route. us route. simvastatin simvastatin No simvastati [facility] 40 mg 40 mg n 40 mg [facility] tablet TAKE tablet TAKE tablet Urology 1 TABLET BY 1 TABLET BY TAKE 1 MOUTH EVERY MOUTH EVERY TABLET BY DAY AT DAY AT MOUTH NIGHT NIGHT EVERY DAY AT NIGHT sodium sodium No sodium [facility] fluoride fluoride fluoride Met ro 1.1 % [...] BEDTIME alendronate alendronate No 1 Q1W alendronat [facility] 70 mg 70 mg e 70 mg [facility] tablet Take tablet Take tablet Urology 1 tablet 1 tablet Take 1 every week every week tablet by oral by oral every week route. route. by oral route. amlodipine amlodipine No amlodipine [facility] 5 5 5 [facility] mg-benazepr mg-benazepr mg-benazep [...] MOUTH EVERY DAY clopidogrel clopidogrel No clopidogre [facility] 75 mg 75 mg l 75 mg [facility] tablet TAKE tablet TAKE tablet Urology 1 TABLET BY 1 TABLET BY TAKE 1 MOUTH EVERY MOUTH EVERY TABLET BY DAY DAY MOUTH EVERY DAY erythromyci erythromyci No erythromyc [facility] n 5 mg/gram n 5 mg/gram in [...] subcutaneo us route. latanoprost latanoprost No latanopros [facility] 0.005 % eye 0.005 % eye t 0.005 % [facility] drops drops eye drops Urology INSTILL 1 INSTILL 1 INSTILL 1 DROP INTO DROP INTO DROP INTO BOTH EYES BOTH EYES BOTH EYES AT BEDTIME AT BEDTIME AT BEDTIME Lupron Lupron No 45mg Lupron [facility] [place] 45 mg [place] 45 mg [place] 45 [facility] (6 Month) (6 Month) mg (6 Urol ogy intramuscul intramuscul Month) ar syringe ar syringe intramuscu kit Inject kit Inject lar 45 mg by 45 mg by syringe intramuscul intramuscul kit Inject ar route. ar route. 45 mg by intramuscu lar route. metoprolol metoprolol No metoprolol [facility] tartrate 50 tartrate 50 tartrate [facility] mg tablet mg tablet 50 mg Urol ogy TAKE 1/2 TAKE 1/2 tablet TABLET BY TABLET BY TAKE 1/2 MOUTH TWICE MOUTH TWICE TABLET BY A DAY WITH A DAY WITH MOUTH FOOD FOOD TWICE A DAY WITH FOOD simvastatin simvastatin No simvastati [facility] 40 mg 40 mg n 40 mg [...] DAILY alendronate alendronate No 1 Q1W alendronat [facility] 70 mg 70 mg e 70 mg [facility] tablet Take tablet Take tablet Urology 1 tablet 1 tablet Take 1 every week every week tablet by oral by oral every week route. route. by oral route. amlodipine amlodipine No amlodipine [facility] 5 5 5 [facility] mg-benazepr mg-benazepr mg-benazep [...] MOUTH EVERY DAY clopidogrel clopidogrel No clopidogre [facility] 75 mg 75 mg l 75 mg [facility] tablet TAKE tablet TAKE tablet Urology 1 TABLET BY 1 TABLET BY TAKE 1 MOUTH EVERY MOUTH EVERY TABLET BY DAY DAY MOUTH EVERY DAY hydrocodone hydrocodone No hydrocodon [facility] 5 5 e 5 [facility] mg-acetamin mg-acetamin [...] subcutaneo us route. latanoprost latanoprost No latanopros [facility] 0.005 % eye 0.005 % eye t 0.005 % [facility] drops drops eye drops Urology INSTILL 1 INSTILL 1 INSTILL 1 DROP INTO DROP INTO DROP INTO BOTH EYES BOTH EYES BOTH EYES AT BEDTIME AT BEDTIME AT BEDTIME lorazepam 1 lorazepam 1 No lorazepam [place] mg tablet mg tablet 1 mg [facility] tablet Urology Lupron Lupron No 45mg Lupron [facility] [place] 45 mg [place] 45 mg [place] 45 [facility] (6 Month) (6 Month) mg (6 Urol ogy intramuscul intramuscul Month) ar syringe ar syringe intramuscu kit Inject kit Inject lar 45 mg by 45 mg by syringe intramuscul intramuscul kit Inject ar route. ar route. 45 mg by intramuscu lar route. metoprolol metoprolol No metoprolol [facility] tartrate 50 tartrate 50 tartrate [facility] mg tablet mg tablet 50 mg Urol ogy TAKE 1/2 TAKE 1/2 tablet TABLET BY TABLET BY TAKE 1/2 MOUTH TWICE MOUTH TWICE TABLET BY A DAY WITH A DAY WITH MOUTH FOOD FOOD TWICE A DAY WITH FOOD simvastatin simvastatin No simvastati [facility] 40 mg 40 mg n 40 mg [facility] tablet TAKE tablet TAKE tablet Urology 1 TABLET BY 1 TABLET BY TAKE 1 MOUTH EVERY MOUTH EVERY TABLET BY DAY AT DAY AT MOUTH NIGHT NIGHT EVERY DAY AT NIGHT sodium sodium No sodium [facility] fluoride fluoride fluoride Met ro 1.1 % [...] Date Status Commen ts Source Name Name [employer] COVID-19 MRNA 2021-06-15 Completed [facility] VACCINATION 00:00:00 [facility] PFIZER COVID-19 MRNA 2021-06-15 Completed [facility] VACCINATION 00:00:00 [facility] PFIZER COVID-19 MRNA 2020-10-20 Completed [facility] VACCINATION 00:00:00 [facility] PFIZER COVID-19 MRNA 2020-10-20 Completed [facility] VACCINATION 00:00:00 [facility] PFIZER COVID-19 MRNA 2020-09-29 Completed [facility] VACCINATION 00:00:00 [facility] PFIZER COVID-19 MRNA 2020-09-29 Completed [facility] VACCINATION 00:00:00 [facility] influenza, influenza, 2020-05-27 Completed [facility] injectable, injectable, 00:00:00 [facility] quadrivalent quadrivalent influenza, influenza, 2020-05-[facility] quadrivalent quadrivalent influenza, influenza, 2020-05-27 [facility], 00:00:00 Urology quadrivalent quadrivalent influenza, influenza, 2020-05-27 [facility], 00:00:00 Urology quadrivalent quadrivalent influenza, influenza, 2020-05-27 Completed [facility] injectable, injectable, 00:00:00 Urology quadrivalent quadrivalent influenza, influenza, 2020-05-27 [facility], 00:00:00 Urology quadrivalent quadrivalent influenza, influenza, 2019-05-21 Completed [facility] injectable, injectable, 00:00:00 Urology quadrivalent quadrivalent influenza, influenza, 2019-05-21 Completed [facility] injectable, injectable, 00:00:00 Urology quadrivalent quadrivalent influenza, influenza, 2019-05-21 [facility], 00:00:00 Urology quadrivalent quadrivalent influenza, influenza, 2019-05-21 [facility]able, 00:00:00 Urology quadrivalent quadrivalent influenza, influenza, 2019-05-21 [facility]able, 00:00:00 Urology quadrivalent quadrivalent influenza, influenza, 2019-05-21 [facility], 00:00:00 [facility] quadrivalent quadrivalent pneumococcal pneumococcal 2015-09-11 Completed [facility] tro polysaccharide PPV23 polysaccharide PPV23 00:00:00 Urology pneumococcal pneumococcal 2015-09-11 Completed [facility] tro polysaccharide PPV23 polysaccharide PPV23 00:00:00 Urology pneumococcal pneumococcal 2015-09-11 Completed [facility] tro polysaccharide PPV23 polysaccharide PPV23 00:00:00 Urology pneumococcal pneumococcal 2015-09-11 Completed [facility] Me tro polysaccharide PPV23 polysaccharide PPV23 00:00:00 Urology pneumococcal pneumococcal 2015-09-11 Completed [facility] tro polysaccharide PPV23 polysaccharide PPV23 00:00:00 Urology pneumococcal pneumococcal 2015-09-11 Completed [facility] Me tro polysaccharide PPV23 polysaccharide PPV23 00:00:00 Urology Vital Signs Vital Name Observation Time Observation Value Comments Source BP Diastolic 2023-01-02 00:00:00 66 mm[Hg] [facility] Height 2023-01-02 00:00:00 73 [in_i] [facility] BMI (Body Mass 2023-01-02 00:00:00 27.4 kg/m2 [place] [facility] Index) Urology BP Systolic 2023-01-02 00:00:00 133 mm[Hg] [facility] Body Weight 2023-01-02 00:00:00 208 [lb_av] [facility] BP Diastolic 2022-07-04 00:00:00 77 mm[Hg] [facility] Height 2022-07-04 00:00:00 73 [in_i] [facility] BMI (Body Mass 2022-07-04 00:00:00 27.8 kg/m2 [place] [facility] Index) Urology BP Systolic 2022-07-04 00:00:00 128 mm[Hg] [facility] Body Weight 2022-07-04 00:00:00 211 [lb_av] [facility] Height 2021-12-28 00:00:00 73 [in_i] [facility] BMI (Body Mass 2021-12-28 00:00:00 28.4 kg/m2 [place] Index) Urology Body Weight 2021-12-28 00:00:00 215 [lb_av] [facility] BP Diastolic 2021-07-20 00:00:00 70 mm[Hg] [facility] Height 2021-07-20 00:00:00 73 [in_i] [facility] BMI (Body Mass 2021-07-20 00:00:00 28.4 kg/m2 [place] Index) Urology BP Systolic 2021-07-20 00:00:00 130 mm[Hg] [facility] Body Weight 2021-07-20 00:00:00 215 [lb_av] [facility] BP Diastolic 2021-06-28 00:00:00 74 mm[Hg] [facility] Height 2021-06-28 00:00:00 73 [in_i] [facility] BMI (Body Mass 2021-06-28 00:00:00 28.4 kg/m2 [place] Index) Urology BP Systolic 2021-06-28 00:00:00 128 mm[Hg] [facility] Body Weight 2021-06-28 00:00:00 215 [lb_av] [facility] BP Diastolic 2020-12-21 00:00:00 70 mm[Hg] [facility] Height 2020-12-21 00:00:00 73 [in_i] [facility] BMI (Body Mass 2020-12-21 00:00:00 28.9 kg/m2 [place] Index) Urology BP Systolic 2020-12-21 00:00:00 133 mm[Hg] [facility] Body Weight 2020-12-21 00:00:00 219 [lb_av] [facility] Systolic blood 2022-09-27 16:59:00 150 mm[Hg] Method ist [facility] pressure Diastolic blood 2022-09-27 16:59:00 70 mm[Hg] [facility] pressure Heart rate 2022-09-27 16:59:00 60 /min [facility] Body height 2022-09-27 16:59:00 185.4 cm [facility] Body weight 2022-09-27 16:59:00 86.183 kg [facility] BMI 2022-09-27 16:59:00 25.07 kg/m2 [facility] Procedures Procedure Date / Time Performing Clinician Source Performed DEXA, axial skeleton + 2023-01-02 00:00:00 [place] vertebral fracture Urology assessment CV STRESS TEST NUCLEAR 2022-10-28 21:06:13 Irma Abreu [facility] CARDIO NM MYOCARDIAL PERFUSION 2022-10-28 21:06:13 [facility] US CAROTID DUPLEX 2022-10-18 17:00:00 [facility] BILATERAL TTE COMPLETE, WO CONTRAST, 2022-10-10 20:42:31 [facility] ([id number][facility] ECG 12-LEAD 2022-09-27 16:57:25 [facility] Sonya Gnosticism Ho spital [place] BARIUM SWALLOW 2022-01-03 15:35:[address] [facility] ESOPHAGUS C Medical Branch NOTICE OF BILLING 2021-11-29 14:14:55 Doctor Unassigned, [facility] PRACTICES FOR MEDICARE [facility] PATIENTS [facility] PATIENT FINANCIAL 2021-11-29 14:14:34 Doctor Unakinigned, [facility] POLICY [facility] NO SHOW OR MISSED 2021-11-29 14:14:21 Doctor Gabrielle, [facility] APPOINTMENT POLICY [facility] ACKNOWLEDGEMENT CONSENT/REFUSAL FOR 2021-11-29 14:14:05 Doctor Gabrielle, [facility] DIAGNOSIS AND TREATMENT [facility] ASSIGNMENT OF BENEFITS 2021-11-29 14:13:49 Doctor Unassigned, [facility] US, renal 2021-07-05 00:00:00 Handy griffith Urology DEXA, axial skeleton + 2021-06-28 00:00:00 [place] vertebral fracture Urology assessment Diagnostic Colonoscopy 2009-09-11 00:00:00 [place] [facility] - Radical Prostatectomy 2008-01-14 00:00:00 [place] [facility] CARDIO- Heart Surgery 2006-09-11 00:00:00 Wendy [place] [facility] (Stents) Urology CARDIO- Heart Surgery 2003-09-11 00:00:00 [place] [facility] (St[facility]) Urology - Orchiectomy (Testes 1972-09-11 00:00:00 [place] Removed) Urology Plan of Care Planned Activity Planned Date Details Comments Source Future Scheduled Test 2023-05-22 Hepatitis C screening [facility] 02:47:03 (procedure) [code = 212328899] Future Scheduled Test 2023-05-22 SHINGLES VACCINES (1 [facility] 02:47:03 of 2) [code = SHINGLES VACCINES (1 of 2)] Future Scheduled Test 2023-05-22 65+ PNEUMOCOCCAL [facility] 02:47:03 VACCINE (2 - PCV) [code = 65+ PNEUMOCOCCAL VACCINE (2 - PCV)] Future Scheduled Test 2023-05-22 COVID-19 VACCINE ([address] [place] [address] 02:47:03 Pfizer series) [code = COVID-19 VACCINE (4 - Pfizer series)] Future Scheduled Test 2023-05-22 INFLUENZA VACCINE [facility] 02:47:03 (#1) [code = INFLUENZA VACCINE (#1)] Future Scheduled Test 2023-05-16 Hepatitis C screening [facility] 07:46:27 (procedure) [code = 860139714] Future Scheduled Test 2023-05-16 SHINGLES VACCINES (1 [facility] 07:46:27 of 2) [code = SHINGLES VACCINES (1 of 2)] Future Scheduled Test 2023-05-16 65+ PNEUMOCOCCAL [facility] 07:46:27 VACCINE (2 - PCV) [code = 65+ PNEUMOCOCCAL VACCINE (2 - PCV)] Future Scheduled Test 2023-05-16 COVID-19 VACCINE ([address] [place] [address] 07:46:27 Pfizer series) [code = COVID-19 VACCINE (4 - Pfizer series)] Future Scheduled Test 2023-05-16 INFLUENZA VACCINE [facility] 07:46:27 (#1) [code = INFLUENZA VACCINE (#1)] Diagnostic Test 2023-01-02 PSA, serum or plasma Guy Antony Pending 00:00:00 [code = PSA, serum or Urolog y plasma] Diagnostic Test 2023-01-02 testosterone, total, Guy Silvajoann Pending 00:00:00 serum [code = Urology testosterone, total, serum] Future Appointment 2023-06-20 Jayce Ocampo Guy paula Cassia 09:45:00 [address] [facility] [address]; , [place] [address] Encounters Start End Encounter Admission Attending Care Care Encounter Source Date/Time Date/Time Type Type Clinicians Facility Department ID 2023-05-14 2023-05-14 Refill Brady, 1.2.840.1 [id number] Methodi 00:00:00 00:00:[address] 3.430.2.7 Hospit a .3.385454 l .8 2023-05-14 2023-05-14 Refill Brady, 1.2.840.1 [id number] Methodi 00:00:00 00:00:[address] 3.430.2.7 Hospit a .3.800177 l .8 2023-04-17 2023-04-17 Refill Brady, 1.2.840.1 [id number] Methodi 00:00:00 00:00:[address] 3.430.2.7 Hospit a .3.070452 l .8 2023-04-17 2023-04-17 Refill Brady, 1.2.840.1 [id number] Methodi 00:00:00 00:00:[address] 3.430.2.7 Hospit a .3.808945 l .8 2023-02-27 2023-02-27 Telephone Brady, 1.2.840.1 [id number] 2100 [id number] Methodi 00:00:00 00:00:[address] 3.430.2.7 Hospit a .3.868900 l .8 2023-02-27 2023-02-27 Refill Brady, 1.2.840.1 [id number] 1774 Methodi 00:00:00 00:00:[address] 3.430.2.7 Hospit a .3.520332 l .8 2023-02-27 2023-02-27 Telephone Brady, 1.2.840.1 [id number] 2100 [id number] Methodi 00:00:00 00:00:[address] 3.430.2.7 Hospit a .3.612166 l .8 2023-02-27 2023-02-27 Refill Brady, 1.2.840.1 [id number] 4186 Methodi 00:00:00 00:00:[address] 3.430.2.7 Hospit a .3.323512 l .8 2023-02-15 2023-02-15 Refill Brady, 1.2.840.1 [id number] 2156 Methodi 00:00:00 00:00:[address] 3.430.2.7 Hospit a .3.267508 l .8 2023-02-15 2023-02-15 Refill Brady, 1.2.840.1 [id number] 1570 Methodi 00:00:00 00:00:[address] 3.430.2.7 Hospit a .3.655323 l .8 2023-02-08 2023-02-08 Outpatient TerrenceDrew [facility] [id number] 00:00:00 00:00:00 [facility] [facility] 2023-02-03 2023-02-03 Telephone Brady, 1.2.840.1 [id number] 2099 [id number] Methodi 00:00:00 00:00:[address] 3.430.2.7 Hospit a .3.322654 l .8 2023-02-03 2023-02-03 Telephone Brady, 1.2.840.1 [id number] 2099 [id number] Methodi 00:00:00 00:00:[address] 3.430.2.7 Hospit a .3.525713 l .8 2023-01-30 2023-01-30 Refashish Prerna, 1.2.840.1 [id number] [id number] Methodi 00:00:00 00:00:[address] 3.430.2.7 Hospit a .3.718474 l .8 2023-01-30 2023-01-30 Telephone Brady, 1.2.840.1 [id number] 2099 [id number] Methodi 00:00:00 00:00:[address] 3.430.2.7 Hospit a .3.257700 l .8 2023-01-30 2023-01-30 Refashish Prerna, 1.2.840.1 [id number] Methodi 00:00:00 00:00:[address] 3.430.2.7 Hospit a .3.617360 l .8 2023-01-30 2023-01-30 Telephone Abreu, 1.2.840.1 [id number] 2099 [id number] Methodi 00:00:00 00:00:[address] 3.430.2.7 Hospit a .3.755823 l .8 2023-01-14 2023-01-14 Outpatient [place]_M [facility] [id number] 00:00:00 00:00:00 62231 [facility] 2023-01-09 2023-01-09 Outpatient [place]_M [facility] [id number] 00:00:00 00:00:00 96102 [facility] 2023-01-09 2023-01-09 Outpatient [place]_M [facility] [id number] 00:00:00 00:00:00 47760 [facility] 2023-01-02 2023-01-02 Outpatient [place]_M [facility] [address] 00:00:00 00:00:00 48692 [facility] 2023-01-02 2023-01-02 Jayce [facility] [place] - [id number] Saleem winters 00:00:00 00:00:00 Handy [facility]campo MD: [facility] [address], [place] [address] , Ph. 2022 2022 Telephone Prerna, 1.2.840.1 [id number] 2 [id number] Methodi 00:00:00 00:00:[address] 3.430.2.7 Hospit a .3.521041 l .8 2022 2022 Telephone Prerna, 1.2.840.1 [id number] 2 [id number] Methodi 00:00:00 00:00:[address] 3.430.2.7 Hospit a .3.169776 l .8 2022-10-25 2022-10-25 Outpatient [facility] [id number] 00:00:00 00:00:[address] IRMA [address] 2022-10-25 2022-10-25 Travel 1.2.840.1 1.2.040.715 3186 [id number] Methodi 00:00:00 00:00:[address] 3.430.2.7 0.2.7.3.698 Ho spita .3.602286 084.8 l .8 2022-10-25 2022-10-25 Travel 1.2.840.1 1.2.255.433 2894 [id number] Methodi 00:00:00 00:00:[address] 3.430.2.7 0.2.7.3.698 Ho spita .3.668360 084.8 l .8 2022-10-18 2022-10-18 Outpatient [facility] [id number] 00:00:00 00:00:[address] IRMA [address] 2022-10-18 2022-10-18 Travel 1.2.840.1 1.2.364.490 3247 [id number] Methodi 00:00:00 00:00:[address] 3.430.2.7 0.2.7.3.698 Ho spita .3.261319 084.8 l .8 2022-10-18 2022-10-18 Travel 1.2.840.1 1.2.342.127 4084 229477 Methodi 00:00:00 00:00:[address] 3.430.2.7 0.2.7.3.698 Ho spita .3.845961 084.8 l .8 2022-10-10 2022-10-10 [facility] BRADY [facility] [id number] 00:00:00 00:00:[address] IRMA [address] 2022-10-10 2022-10-10 Travel 1.2.840.1 1.2.704.516 6423 [id number] Methodi 00:00:00 00:00:[address] 3.430.2.7 0.2.7.3.698 Ho spita .3.189098 084.8 l .8 2022-10-10 2022-10-10 Travel 1.2.840.1 1.2.118.911 1343 [id number] Methodi 00:00:00 00:00:[address] 3.430.2.7 0.2.7.3.698 Ho spita .3.120239 084.8 l .8 2022-09-27 2022-09-27 Office Brady, 1.2.840.1 [id number] 2116 Methodi 10:10:00 16:35:21 Visit Irma Hassan 06016.1.[address] 3.430.2.7 Hospit a .3.366088 l .8 2022-09-27 2022-09-27 Office Abreu, 1.2.840.1 [id number] 7504 Methodi 10:10:00 16:35:21 Visit Irma Hassan 40368.1.[address] 3.430.2.7 Hospit a .3.343912 l .8 2022-09-27 2022-09-27 Travel 1.2.840.1 1.2.188.263 9368 [id number] Methodi 00:00:00 00:00:[address] 3.430.2.7 0.2.7.3.698 Ho spita .3.835983 084.8 l .8 2022-09-27 2022-09-27 Travel 1.2.840.1 1.2.162.544 9488 190081 Methodi 00:00:00 00:00:[address] 3.430.2.7 0.2.7.3.698 Ho spita .3.588281 084.8 l .8 2022-08-13 2022-08-13 Refill Brady, 1.2.840.1 [id number] 5884 Methodi 00:00:00 00:00:[address] 3.430.2.7 Hospit a .3.466637 l .8 2022-08-13 2022-08-13 Refill Brady, 1.2.840.1 [id number] 1454 Methodi 00:00:00 00:00:[address] 3.430.2.7 Hospit a .3.693134 l .8 2022-08-11 2022-08-11 Refill Brady, 1.2.840.1 [id number] 4966 Methodi 00:00:00 00:00:[address] 3.430.2.7 Hospit a .3.240505 l .8 2022-08-11 2022-08-11 Kaylan Abreu, 1.2.840.1 [id number] 1207 Methodi 00:00:00 00:00:[address] 3.430.2.7 Hospit a .3.602769 l .8 2022-08-01 2022-08-01 Outpatient [place] [address] 00:00:00 00:00:00 97696 [facility] 2022-07-26 2022-07-26 Outpatient [place] [address] 00:00:00 00:00:00 80837 [facility] 2022-07-25 2022-07-25 Kaylan Abreu, 1.2.840.1 [id number] 1331 Methodi 00:00:00 00:00:[address] 3.430.2.7 Hospit a .3.697476 l .8 2022-07-25 2022-07-25 Kaylan Abreu, 1.2.840.1 [id number] 4064 Methodi 00:00:00 00:00:[address] 3.430.2.7 Hospit a .3.203256 l .8 2022-07-12 2022-07-12 Outpatient [place] [address] 00:00:00 00:00:00 66817 [facility] 2022-07-04 2022-07-04 Outpatient [place]_M [facility] [address] 00:00:00 00:00:00 91426 [facility] 2022-07-04 2022-07-04 Jayce [facility] [place] - [id number] Saleem winters 00:00:00 00:00:00 Handy Ocampo MD: 6560 [facility] [place] [facility] [address] [facility], [place] [address] , Ph. 2022-06-30 2022-06-30 Outpatient [place]_M [facility] [address] 00:00:00 00:00:00 05463 [facility] 2022-04-18 2022-04-18 Outpatient [place]_M [facility] [address] 00:00:00 00:00:00 64055 [facility] 2022-03-21 2022-03-21 Outpatient [place]_M [facility] [address] 01:04:00 01:04:00 41457 [facility] 2022-02-13 2022-02-13 Outpatient [place]_M [facility] [address] 12:50:00 12:50:00 [facility] 2022-01-09 2022-01-09 Outpatient [place]_M [facility] [address] 12:57:00 12:57:00 [facility] 2022-01-03 2022-01-03 Outpatient R [facility] [id number] [facility] 09:00:36 23:59:00 CRUZ Glass [facility] 2022-01-03 2022-01-03 [facility] 1.2.840.114 9 [id number] [facility] 09:00:36 23:59:00 Cruz Guevara 350.1.13.10 [facility] 4.2.7.2.686 [facility] [id number] [place] [address] Branch 2021-12-29 2021-12-29 Outpatient [place]_M [facility] [address] 12:12:00 12:12:00 [facility] 2021-12-28 2021-12-28 Outpatient [place]_M [facility] [address] 09:41:00 09:41:00 [facility] 2021-12-28 2021-12-28 [facility] [place] - [id number] Saleem winters 00:00:00 00:00:00 Handy Ocampo MD: [facility] [address], [place] [address] , Ph. 2021-12-28 2021-12-28 Outpatient ROB Ocampo U [id number] 00:00:00 00:00:00 Jayce [id number] 2021-11-29 2021-11-29 [facility] 1.2.840.114 9 [id number] [facility] 09:00:00 23:59:00 [facility] 350.1.13.10 ityahaira [facility] 4.2.7.2.686 [facility] [id number] [address] 2021-11-29 2021-11-29 Outpatient R [facility] [id number] [facility] 00:00:00 23:59:00 CRUZ Glass o f [facility] 2021-09-28 2021-09-28 Outpatient BRADY [facility] [id number] 00:00:00 00:00:00 IRMA [address] 2021-08-21 2021-08-21 Outpatient [place]_M [facility] U [id number] 04:12:00 04:12:00 87616 [facility] 2021-07-22 2021-07-22 Outpatient [place]_M [facility] [address] 09:28:00 09:28:00 25169 [facility] 2021-07-21 2021-07-21 Outpatient [place]_M [facility] U [id number] 06:19:00 06:19:00 14413 [facility] 2021-07-20 2021-07-20 Outpatient [place]_M [facility] U [address] 01:16:00 01:16:00 84716 [facility] 2021-07-20 2021-07-20 Jayce [facility] [place] - [id number] Saleem winters 00:00:00 00:00:00 Handy Ocampo MD: 6560 [facility] [address], [place] [address] , Ph. 2021-07-20 2021-07-20 Outpatient Fabrizioon, [facility]U [facility]U [id number] 00:00:00 00:00:00 Jayce [id number] 2021-07-13 2021-07-13 Outpatient [place]_M [facility] [address] 02:37:00 02:37:00 83994 [facility] 2021-07-10 2021-07-10 Outpatient [place]_M [facility] [address] 03:34:00 03:34:00 17898 [facility] 2021-06-29 2021-06-29 Outpatient [place]_M [facility] [address] 09:27:00 09:27:00 71940 [facility] 2021-06-28 2021-06-28 Outpatient [place]_M [facility] [address] 02:25:00 02:25:00 60349 [facility] 2021-06-28 2021-06-28 Outpatient Terrence, [facility]U [facility]U [id number] 00:00:00 00:00:00 Jayce [id number] 2021-06-28 2021-06-28 Jayce U [place] [facility] [id number] [facility] 00:00:00 Handy Ocampo MD: [address]60 [facility] [place] [address], [place] [address] , Ph. 2021-06-24 2021-06-24 Outpatient [place]_M [facility] [address] 10:50:00 10:50:00 30741 [facility] 2021-06-15 2021-06-15 [facility] [id number] 00:00:00 00:00:[address] 2020-12-21 2020-12-21 Outpatient [place]_M [facility] [address] 02:14:00 02:14:00 12629 [facility] 2020-12-21 2020-12-21 Outpatient Lewitton, Tay [facility] [id number] 00:00:00 00:00:00 Jayce [id number] 2020-12-21 2020-12-21 Jayce [facility] [place] [facility] [id number] [facility] 00:[facility] 00:00:00 Handy Ocampo Jess griffith MD: 6560 [facility] [place] [facility] - [address], [place] [address] , Ph. 2020-12-02 2020-12-02 Outpatient Mirian [facility] [address] 01:49:00 01:49:00 77032 [facility] 2020-10-20 2020-10-20 Outpatient [facility] [id number] 00:00:00 00:00:[address] 2020-09-29 2020-09-29 Outpatient [facility] [id number] 00:00:00 00:00:[address] 2020-09-29 2020-09-29 Outpatient BRADY, [facility] [id number] 00:00:00 00:00:00 IRMA [address] 2020-09-22 2020-09-22 Outpatient ABREU, [facility] [id number] 00:00:00 00:00:00 IRMA [address] 2020-03-31 2020-03-31 Outpatient BRADY, [facility] [id number] 00:00:00 00:00:00 IRMA [address] 2020-02-13 2020-02-14 [id number] [place] 00:00:00 00:00:00 IRMA [address] 2020-02-11 2020-02-11 Outpatient BRADY, [facility] [id number] 00:00:00 00:00:00 IRMA [address] 2020-02-11 2020-02-11 Outpatient BRADY, [facility] [id number] 00:00:00 00:00:00 IRMA [address] 2020-01-14 2020-01-14 Outpatient BRADY, [facility] [id number] 00:00:00 00:00:00 IRMA [address] 2020-01-10 2020-01-10 Outpatient [facility] [id number] 00:00:00 00:00:[address] Results Test Description Test Time Test Comments Results Result Comments Source PSA, serum or plasma 2023-01-02 00:00:00 Test Item Value Reference Range Interpretation Comme nts PSA testosterone (test code = PSA testosterone) PSA_1 (test code = PSA_1) <0.02 testosterone_1 (test code = testosterone_1) 12.72 [facility] 12 [id number] 03:35:08 Test Item Value Reference Range Interpretation [...] abnormality no longer evident in Anterior leads- [facility] 12 [id number] 03:35:08 Test Item Value Reference Range Interpretation [...] abnormality no longer evident in Anterior leads- [facility], serum or [id number] 00:00:00 Test Item Value Reference Range Interpretation Comments PSA testosterone (test code = PSA testosterone) PSA_1 (test code = PSA_1) <0.02 testosterone_1 (test code = 15.48 testosterone_1) shbg_1 (test code = shbg_1) 44.0 calculated free testosterone_1 (test 0.231 code = calculated free testosterone_1) [facility]
[2023-05-22] MEDS ORDERED: ONDANSETRON 4 MG/2 ML VIAL ONE (03:20)
[2023-05-22 03:49] LABS: Absolute Lymphocytes (CBC) 0.3 K/uL (0.7-4.9); Hematocrit 27.9 % (39.6-49.0); Lymphocytes % 4.3 % (15.3-44.8); MCV 92.6 fL (80-100); MPV 9.9 fL (7.6-11.3); Platelets 51 thou/uL (152-406); RBC Red Blood Cell Count 3.01 M/uL (4.33-5.43)
[2023-05-22 04:03] LABS: Albumin 2.3 g/dL (3.4-5.0); Bilirubin Total 0.6 mg/dL (0.2-1.0); Potassium 4.4 mEq/L (3.5-5.1); Protein, Total 5.9 g/dL (6.4-8.2)
[2023-05-22] MEDS ORDERED: ONDANSETRON 4 MG/2 ML VIAL IV PRN (04:21)
--- NOTE | 2023-05-22 04:25 | P.HP ---
Certification for Inpatient Patient admitted to: Observation With expected LOS: <2 Midnights Patient will require the following post-hospital care: None Practitioner: I am a practitioner with admitting privileges, knowledge of patient current condition, hospital course, and medical plan of care. Services: Services provided to patient in accordance with Admission requirements found in Title 42 Section 412.3 of the Code of Federal Regulations Patient History Date of Service: 05/22/23 Reason for admission: Flank pain History of Present Illness: 77-year-old male with a past medical history of diabetes type 2, hypertension, CKD, CAD with 5 stents on aspirin and Plavix, history of prostate cancer cancer post EBRT over 20 years ago, s/p TURP versus radical prostatectomy with postprocedure incontinence presents to the emergency room he reports B) flank pain and bilateral lower extremity leg cramping. He reports recent ureteral stent placement by Dr. Celaya, He was discharged yesterday on Levaquin, and hydrocodone 10 for pain. He denies fever, nausea vomiting, abdominal pain, chest pain. He reported constipation yesterday, taking stool softeners having loose stools today.While inpatient state patient was seen by Dr. Fabian for nephrology and urology Dr. Celaya. Plan to admit for intractable pain, bilateral flank pain status post recent ureter ureteral stent placement. ED evaluation WBCs unremarkable, hemoglobin 9.6, hematocrit 27.9, platelet count 51, neutrophils 90.2, CMP sodium, potassium normal, acute on chronic kidney injury BUN 52 creatinine 1.60, improved from yesterday. Glucose 125 estimated GFR 44. UA pending, CT of the abdomen pelvis pending. Plan to resume IV Levaquin, consult nephrology. Urology recent note: complicated UTI and SIRS, possible sepsis, with AMS decompensation in the setting of LM secondary to a 6 mm proximal right ureteral obstructing calculus and right hydronephrosis. -05/18/23 Right obstructive ureterolithiasis. -Right hydronephrosis -Complicated urinary tract infection -05/18/23 Right ureteral stent placement. Nephrology recent note: Conclusions/Impression: Stage I LM likely due to hypovolemia and complicated by an obstructing right ureter calculus CKD III with Proteinuria -No NSAIDs -Right ureter stent placed by urology -Anemia in chronic illness -Thrombocytopenia -Complicated UTI -Bacteremia -ID was following during last visit DC 05/21 Prescriptions: 1. levoFLOXacin[Levaquin] 500 mg oral daily #10 tab 2. Shzttyqognx29/APAP 325 [Norco10/325] 1 tab oral Q8H as needed #30 tab Allergies metformin Allergy (Verified 05/18/23 20:06) ITCHING/ SWELLING Home Medications: Alendronate Sodium 70 mg PO EVERY 7TH DAY 05/18/23 Clopidogrel Bisulfate [Plavix*] 75 mg PO DAILY 05/18/23 Latanoprostene Bunod [Vyzulta] 1 drop OP BEDTIME 05/18/23 Metoprolol Tartrate [Lopressor*] 25 mg PO BID 05/18/23 Simvastatin 40 mg PO BEDTIME 05/18/23 Aspirin 81 mg PO DAILY 05/19/23 Insulin Glargine,Hum.rec.anlog [Insulin Glargine] 20 units SQ BEDTIME 05/19/23 Insulin Glargine,Hum.rec.anlog [Lantus] 20 units SQ BID 05/19/23 Semaglutide [Ozempic] 0.25 mg SQ EVERY 7TH DAY 05/19/23 Hydrocodone 10/APAP 325 [[place] 10/325] 1 tab PO Q8H PRN #30 tab 05/21/23 levoFLOXacin [Levaquin] 500 mg PO DAILY #10 tab 05/21/23 predniSONE [Deltasone] 20 mg PO DAILY #5 tab 05/21/23 - Past Medical/Surgical History Diabetic: Yes -: NIDDM -: Prostate CA -: CKD -: HTN -: Hydronephrosis -: Right ureteral stone -: Complicated UTI -: Bacteremia -: 05/18/23 Right ureteral stent placement - Social History Smoking Status: Never smoker Alcohol use: No CD- Drugs: No Caffeine use: Yes Review of Systems 10-point ROS is otherwise unremarkable Physical Examination - Physical Exam General: Alert, In no apparent distress, Oriented x3 HEENT: Atraumatic, Normocephalic, PERRLA, Other (Dry mucous membranes) Neck: 2+ carotid pulse no bruit, JVD not distended Respiratory: Clear to auscultation bilaterally, Normal air movement Cardiovascular: Regular rate/rhythm, Edema (+1 bilateral lower extremity edema) Capillary refill: <2 Seconds Gastrointestinal: Normal bowel sounds, Non-distended, Other (Right CVA tenderness) Musculoskeletal: No clubbing, No swelling Neurological: Normal speech, Normal strength at 5/5 x4 extr - Studies Laboratory Data (last 24 hrs) 05/22/23 05/22/23 03:02 03:02 WBC 7.20 RBC 3.01 L Hgb 9.6 L Hct 27.9 L MCV 92.6 MCH 32.0 MCHC 34.6 RDW 13.1 Plt Count 51 L MPV 9.9 Neutrophils % 90.2 H Lymphocytes % 4.3 L Monocytes % 5.3 Eosinophils % 0.1 Basophils % 0.1 Absolute Neutrophils 6.5 Absolute Lymphocytes 0.3 L Absolute Monocytes 0.4 Absolute Eosinophils 0.0 Absolute Basophils 0.0 Sodium 140 Potassium 4.4 Chloride 113 H Carbon Dioxide 20 L Anion Gap 11.4 BUN 52 H Creatinine 1.60 H Est GFR (CKD-EPI) 44 L Glucose 125 H Calcium 8.1 L Total Bilirubin 0.6 AST 20 ALT 21 Alkaline Phosphatase 92 Serum Total Protein 5.9 L Albumin 2.3 L Globulin 3.6 H Albumin/Globulin Ratio 0.6 L Lipase 41 Assessment and Plan - Plan Assessment plan Intractable pain secondary bilateral flank pain 05/18/23 Right obstructive ureterolithiasis. Right hydronephrosis Complicated urinary tract infection 05/18/23 Right ureteral stent placement Complicated UTI Bacteremia nephrology consult, urology as needed analgesics CT of the abdomen pelvis pending UA pending IV fluids, as needed analgesics ED evaluation WBCs unremarkable Acute on chronic kidney injury CKD III with Proteinuria IV fluids, no NSAIDs Right ureter stent placed by urology CMP sodium, potassium normal, acute on chronic kidney injury BUN 52 creatinine 1.60, improved from yesterday. Anemia in chronic illness Thrombocytopenia -Monitor CBC hemoglobin 9.6, hematocrit 27.9, platelet count 51, Diabetes type 2 Accu-Cheks, sliding scale insulin Diet cardiac Full code DVT scd . Discharge Plan: Home Plan to discharge in: 24 Hours - Advance Directives Does patient have a Living Will: Yes Does patient have a Durable POA for Healthcare: No - Code Status/Comfort Care Code Status: Full Code Physician Review: Patient Assessed, Agree with Above Assessment and Plan Critical Care: No Time Spent Managing Pts Care (In Minutes): 50
[2023-05-22] MEDS ORDERED: GLUCAGON 1 MG/VIAL IM PRN (04:26)
[2023-05-22] MEDS ORDERED: D50W 25 GM/50 ML SYRINGE IV PRN (04:26)
[2023-05-22] MEDS ORDERED: D10W 125 ML IV PRN (04:33)
[2023-05-22] MEDS ORDERED: DICYCLOMINE HCL 10 MG CAP ONE (04:43)
[2023-05-22] MEDS ORDERED: methocarbamoL 750 MG TAB ONE (04:43)
[2023-05-22] MEDS ORDERED: Levofloxacin500mg IV 500 MG/100 ML BAG IV ONE (04:43)
[2023-05-22 04:48] LABS: Blood Morphology Comment NOT SEEN (NOT SEEN); Platelet Estimate DECR
[2023-05-22] MEDS ORDERED: NA CHLORIDE 0.9% 1,000 ML IV SCH (05:00)
[2023-05-22 05:38] LABS: SARS-CoV-2 Antigen Rapid Res Negative (Negative)
--- NOTE | 2023-05-22 05:51 | EDPHYS ---
Physician Documentation [facility] Name: Jomar Diaz Age: 77 yrs Sex: Male : 1945 Arrival Date: 05/22/2023 Time: 02:44 Bed 7 Private MD: ED Physician Lucas Palomino HPI: 05/22 03:02 This 77 yrs old Male presents to ER via EMS with complaints of Flank Pain. sp4 03:02 Old Record review - Procedure 05/18/2023 - Postoperative Diagnoses: 1. Right sp4 obstructive ureterolithiasis. 2. Right hydronephrosis. 3. Complicated urinary tract infection with SIRS, possible sepsis. 4. Altered mental status. 5. Acute kidney injury. Principal Procedures: 1. Cystoscopy. 2. Right retrograde pyelography. 3. Right ureteral stent placement. 04:00 Patient with past medical history of diabetes, hypertension, prostate cancer, kidney sp4 disease, presented to the emergency department on 05/18/2023 with right flank pain and lower back pain. Patient was found to have UTI and elevated white cell count of 25,000 hemoglobin 11.2 hematocrit 34 platelet count 129 and elevated serum potassium 5.3. CT abdomen pelvis at the day of admission revealed 6 mm calculus in the proximal right ureter resulting in moderate right hydronephrosis. Patient was subsequently admitted for complicated UTI with right proximal ureteral stone, acute kidney injury in the setting of chronic kidney disease, hyperkalemia, metabolic acidosis, hypoalbuminemia, anemia of chronic disease, and complicated UTI. Urology placed a right ureteral stent. Patient was subsequently discharged home on 0906/30/2023 with p.o. levofloxacin 500 mg daily, Ambler 10 as needed and prednisone. 6 mm calculus remains on the right ureter. But this is bypassed by right ureteral stent. . After discharge home patient has developed moderate to severe bilateral flank pain and also bilateral lower extremity cramps. Patient was given Ambler 10 at home prior to arrival. EMS gave 15 mg IV Toradol. Patient's pain has improved. On arrival patient is incontinent of bowel and bladder. He is wearing depends. He states his pain is tolerable and does not require pain medicines at this time. . Historical: - Allergies: 02:51 metformin; rv - PMHx: 02:51 Diabetes - NIDDM; Hypertension; kidney disease; Prostate Cancer; rv - Immunization history:: Adult Immunizations up to date. - Social history:: Smoking status: Patient denies any tobacco usage or history of. - Family history:: not pertinent. ROS: 04:00 Constitutional: Negative for fever, chills, and weight loss, positive for bilateral sp4 back pain and flank pain, positive for bilateral lower extremity cramps. 04:00 All other systems are negative. Exam: 04:00 Constitutional: This is a well developed, well nourished patient who is awake, alert, sp4 patient is a fully regular elderly male, nontoxic-appearing, chronic ill appearance. Patient is incontinent of bowel Head/Face: Normocephalic, atraumatic. Eyes: Pupils equal round and reactive to light, extra-ocular motions intact. Lids and lashes normal. Conjunctiva and sclera are not injected. Cornea within normal limits. Periorbital areas with no swelling, redness, or edema. ENT: Nares patent. No nasal discharge, no septal abnormalities noted. Tympanic membranes are normal and external auditory canals are clear. Oropharynx with no redness, swelling, or masses, exudates, or evidence of obstruction, uvula midline. Mucous membranes moist. Neck: Trachea midline, no thyromegaly or masses palpated, and no cervical lymphadenopathy. Supple, full range of motion without nuchal rigidity, or vertebral point tenderness. Chest/axilla: Normal chest wall appearance and motion. Nontender with no deformity. No lesions are appreciated. Cardiovascular: Regular rate and rhythm with a normal S1 and S2. No gallops, murmurs, or rubs. Normal PMI, no JVD. No pulse deficits. Respiratory: Lungs have equal breath sounds bilaterally, clear to auscultation and percussion. No rales, rhonchi or wheezes noted. No increased work of breathing, no retractions or nasal flaring. Abdomen/GI: Soft, non-tender, with normal bowel sounds. No distension or tympany. No guarding or rebound. No evidence of tenderness throughout. Back: No spinal tenderness. No costovertebral tenderness. Male : Normal genitalia with no discharge or lesions. Skin: Warm, dry with normal turgor. Normal color with no rashes, no lesions, and no evidence of cellulitis. MS/ Extremity: Pulses equal, no cyanosis. Neurovascular intact. Full, normal range of motion. Neuro: Awake and alert, GCS 15, oriented to person, place, time, and situation. Cranial nerves II-XII grossly intact. Motor strength 5/5 in all extremities. Sensory grossly intact. Psych: Awake, alert, with orientation to person, place and time. Behavior, mood, and affect are within normal limits 05:57 ECG was reviewed by the Attending Physician. EKG time 0 442. Sinus rhythm at the rate sp4 of 90, first-degree AV block, no ST elevation or depression, no ectopy Vital Signs: 02:49 Pulse 102; Resp 18; Temp 98; Pulse Ox 97% ; Weight 82.55 kg; Height 6 ft. 1 in. ; Pain rv 2/10; 02:53 BP 122 / 67; rv 04:00 BP 137 / 69; Pulse 91; Resp 18; Pulse Ox 98% on R/A; rv 04:52 BP 144 / 76; Pulse 86; Resp 18; Pulse Ox 100% on R/A; rv 06:25 BP 135 / 72; Pulse 86; Resp 17; Temp 98; Pulse Ox 99% on R/A; rv 02:49 Body Mass Index 24.01 (82.55 kg, 185.42 cm) rv 02:49 Pain Scale: Adult rv Lisa Coma Score: 06:37 Eye Response: spontaneous(4). Motor Response: obeys commands(6). Verbal Response: rv oriented(5). Total: 15. MDM: 02:55 Patient medically screened. sp4 05:48 Differential diagnosis: nephrolithiasis, pyelonephritis, UTI, testicular torsion, sp4 diverticulitis, pancreatitis. Data reviewed: vital signs, nurses notes, old medical records, lab test result(s), EKG, radiologic studies. Consideration of Admission/Observation Patient was admitted/placed on observation. Escalation of care including admission/observation considered. Management of patient was discussed with the following: Hospitalist: Discussed with Admission team . ED course: CT - FINDINGS: Lung bases: Chronic interstitial changes in the lung bases. Tiny left pleural effusion. Liver: Unremarkable Gallbladder and biliary system: Unremarkable Pancreas: Unremarkable Spleen: Unremarkable Adrenals: Unremarkable Kidneys: There is a right ureteral stent in place. Proximal end within the nondilated right renal pelvis. There is a 6 mm right renal stone. No gross hydronephrosis. No right ureteral calculi or hydroureter. Nonobstructive left renal calcifications some of which are vascular. Nonspecific bilateral perinephric stranding, which may be chronic. Gl: No obstruction. No appreciable mucosal thickening. Appendix: No findings to suggest acute appendicitis. Urinary bladder: Unremarkable Reproductive: Surgical changes in the pelvis status post prostatectomy. Lymph nodes: No pathologically enlarged lymph nodes. Peritoneum: No focal fluid collection. No free air. Vessels: Prominent atherosclerotic peripheral vascular disease. Abdominal wall: Unremarkable Bones: UnremarkableNo acute bony pathology IMPRESSION: 1. Right ureteral stent in place. There is a 6 mm right renal stone. No gross hydronephrosis. No right ureteral calculi or hydroureter. Nonspecific bilateral perinephric stranding, which may be chronic. 2. Tiny left pleural effusion. Chronic interstitial changes in the lung bases. 3. No other significant interval change since the prior examination. ED course: Patient warrants readmission to the hospital for pain management and additional management of UTI. 05/22 02:55 Order name: CBC with Diff; Complete Time: 05:48 [facility] 05/22 02:55 Order name: CMP; Complete Time: 05:48 [facility] 05/22 02:55 Order name: Lipase; Complete Time: 05:48 [facility] 05/22 02:55 Order name: Urinalysis w/ reflexes [facility] 05/22 03:57 Order name: Manual Differential; Complete Time: 05:48 [facility] 05/22 04:06 Order name: SARS RAPID; Complete Time: 05:48 [facility] 05/22 04:25 Order name: Basic Metabolic Panel [facility] 05/22 04:25 Order name: Basic Metabolic Panel [facility] 05/22 04:25 Order name: CBC with Automated Diff [facility] 05/22 04:25 Order name: CBC with Automated Diff [facility] 05/22 04:25 Order name: Magnesium [facility] 05/22 04:25 Order name: Magnesium [facility] 05/22 02:55 Order name: CT Abd/Pelvis - Without Contrast [facility] 05/22 04:06 Order name: EKG; Complete Time: 04:07 4 05/22 04:25 Order name: CONS Physician Consult [facility] 05/22 04:25 Order name: Heart Healthy [facility] 05/22 02:55 Order name: IV Saline Lock; Complete Time: 03:07 [facility] 05/22 02:55 Order name: Labs collected and sent; Complete Time: 03:07 sp4 05/22 04:06 Order name: EKG - Nurse/Tech; Complete Time: 04:44 sp4 EC:57 Rate is 90 beats/min. Rhythm is regular, Sinus Rhythm. QRS [place] is Normal. MN interval sp4 is prolonged. QRS interval is normal. QT interval is normal. T waves are Normal. Clinical impression: No evidence of ischemia. Interpreted by me. Administered Medications: 04:44 Drug: levofloxacin IVPB 500 mg Volume: 100 ml; Route: IVPB; Infused Over: 60 mins; rv Site: left antecubital; 06:24 Follow up: Response: No adverse reaction; IV Status: Completed infusion; IV Intake: rv 100ml 04:44 Drug: Dicyclomine PO 20 mg Route: PO; rv 06:24 Follow up: Response: No adverse reaction rv 04:44 Drug: Methocarbamol PO 750 mg Route: PO; rv 06:24 Follow up: Response: No adverse reaction rv 04:52 Not Given (Patient Refused): Ondansetron IVP 4 mg IVP once; over 2 minutes rv Disposition Summary: 05/22/23 05:50 Hospitalization Ordered Hospitalization Status: Inpatient Admission sp4 Provider: Zully [email or web address] Location: Telemetry/MedSurg (Inpatient) sp4 Condition: Stable sp4 Problem: new sp4 Symptoms: have improved sp4 Bed/Room Type: Standard sp4 Room Assignment: 406(05/22/23 06:01) mw Diagnosis - Abdominal pain, Generalized sp4 - Bilateral leg cramps, bilateral flank pain, UTI, ureteral stent pain sp4 Forms: - Medication Reconciliation Form sp4 - SBAR form sp4 - Leadership Thank You Letter sp4 Signatures: Dispatcher [employer] Betsy Chamorro RN RN mw Mark Espino RN RN rv Lucas Palomino MD MD sp4 Corrections: (The following items were deleted from the chart) 06:01 05:50 sp4 mw
--- NOTE | 2023-05-22 05:51 | ER ---
Nurse's Notes [facility] Name: Jomar Diaz Age: 77 yrs Sex: Male : 1945 Arrival Date: 05/22/2023 Time: 02:44 Bed 7 Private MD: Diagnosis: Abdominal pain, Generalized;Bilateral leg cramps, bilateral flank pain, UTI, ureteral stent pain Presentation: 05/22 02:49 Chief complaint: EMS states: KINGSLEY FLANK PAIN /, SUDDEN ONSET, NORCO 10 WAS GIVEN AT HOME, NO RELIEF, CALLED EMS. TORADOL 15MG IV GIVEN EN ROUTE. Coronavirus screen: At this time, the client does not indicate any symptoms associated with coronavirus-19. Ebola Screen: No symptoms or risks identified at this time. Initial Sepsis Screen: Does the patient meet any 2 criteria? No. Patient's initial sepsis screen is negative. Does the patient have a suspected source of infection? No. Patient's initial sepsis screen is negative. Risk Assessment: Do you want to hurt yourself or someone else? Patient reports no desire to harm self or others. Onset of symptoms was May 22, 2023. 02:49 Method Of Arrival: EMS: [facility] 02:49 Acuity: AMIE 3 rv Triage Assessment: 02:51 General: Appears comfortable, Behavior is calm, cooperative. Pain: Complains of pain in rv FLANK, KINGSLEY. Neuro: Level of Consciousness is awake, alert, obeys commands, Oriented to person, place, time, situation. Cardiovascular: Capillary refill < 3 seconds Patient's skin is warm and dry. Respiratory: Airway is patent Respiratory effort is even, unlabored. Derm: Skin is intact. Historical: - Allergies: 02:51 metformin; rv - PMHx: 02:51 Diabetes - NIDDM; Hypertension; kidney disease; Prostate Cancer; rv - Immunization history:: Adult Immunizations up to date. - Social history:: Smoking status: Patient denies any tobacco usage or history of. - Family history:: not pertinent. Screenin:52 [facility] ED Fall Risk Assessment (Adult) History of falling in the last 3 months, rv including since admission No falls in past 3 months (0 pts) Altered Elimination Score/Fall Risk Level 3 or more points = High Risk Oriented to surroundings, Maintained a safe environment, Educated pt \T\ family on fall prevention, incl call for assistance when getting out of bed, Assessed \T\ reinforced patient's understanding of fall precautions, Provided non-skid footwear, Hourly rounding (assess needs \T\ fall precautionary measures) done, Used ambulatory aids as needed (educated on \T\ assisted with), Used gait belt as appropriate Implemented a Fall Risk Plan of Care, Apply high fall risk patient identification: yellow non skid footwear/ fall signage, Placed fall mat w/ non beveled edge next to bed, Activated bed/chair alarm, Remained w/in arm's length of patient and in sight while toileting, Offered frequent toileting (1:1 observation), Remained with patient while ambulating, Utilized family, sitter, or virtual custom motorcycle painter as indicated. Abuse screen: Denies threats or abuse. Denies injuries from another. Nutritional screening: No deficits noted. Tuberculosis screening: No symptoms or risk factors identified. Assessment: 02:53 Reassessment: SEE TRIAGE NOTES. rv Vital Signs: 02:49 Pulse 102; Resp 18; Temp 98; Pulse Ox 97% ; Weight 82.55 kg; Height 6 ft. 1 in. ; Pain rv 210; 02:53 BP 122 / 67; rv 04:00 BP 137 / 69; Pulse 91; Resp 18; Pulse Ox 98% on R/A; rv 04:52 BP 144 / 76; Pulse 86; Resp 18; Pulse Ox 100% on R/A; rv 06:25 BP 135 / 72; Pulse 86; Resp 17; Temp 98; Pulse Ox 99% on R/A; rv 02:49 Body Mass Index 24.01 (82.55 kg, 185.42 cm) rv 02:49 Pain Scale: Adult rv Delton Coma Score: 06:37 Eye Response: spontaneous(4). Motor Response: obeys commands(6). Verbal Response: rv oriented(5). Total: 15. ED Course: 02:45 Patient arrived in ED. bp 02:49 Mark Espino, IZA is Primary Nurse. rv 02:51 Triage completed. rv 02:51 Arm band placed on right wrist. rv 02:52 Patient has correct armband on for positive identification. Provided Education on: PAIN rv MANAGEMENT. Client placed on continuous cardiac and pulse oximetry monitoring. NIBP monitoring applied. 02:52 No provider procedures requiring assistance completed. Maintain EMS IV. Dressing rv intact. Good blood return noted. Site clean \T\ dry. Gauge \T\ site: 20 LAC. 02:54 Lucas Palomino MD is Attending Physician. sp4 03:59 CT Abd/Pelvis - Without Contrast In Process Unspecified. EDMS 05:50 Zully Escobedo MD is Hospitalizing Provider. sp4 06:14 Patient admitted, IV remains in place. rv Administered Medications: 04:44 Drug: levofloxacin IVPB 500 mg Volume: 100 ml; Route: IVPB; Infused Over: 60 mins; rv Site: left antecubital; 06:24 Follow up: Response: No adverse reaction; IV Status: Completed infusion; IV Intake: rv 100ml 04:44 Drug: Dicyclomine PO 20 mg Route: PO; rv 06:24 Follow up: Response: No adverse reaction rv 04:44 Drug: Methocarbamol PO 750 mg Route: PO; rv 06:24 Follow up: Response: No adverse reaction rv 04:52 Not Given (Patient Refused): Ondansetron IVP 4 mg IVP once; over 2 minutes rv Medication: 02:53 VIS not applicable for this client. rv Intake: 06:24 IV: 100ml; Total: 100ml. rv Outcome: 05:50 Decision to Hospitalize by Provider. sp4 06:13 Admitted to Tele accompanied by tech, via stretcher, room 406, with chart, Report rv called to [facility]SELMO [facility] 06:13 Condition: stable 06:13 Instructed on the need for admit. 06:37 Patient left the ED. rv Signatures: Dispatcher [employer] EDMS Alen Ramirez RN RN Mark Quiroz RN RN rv Lucas Palomino MD MD sp4
[2023-05-22 06:46] LABS: Specific Gravity 1.018 (1.005-1.030); Urine Bacteria None Seen /HPF (<20); Urine Bilirubin NEGATIVE (Negative); Urine Blood 2+ (Negative); Urine Clarity Extremely Turbid (Clear); Urine Color Light-Yellow (Yellow); Urine Glucose 3+ (Negative); Urine Granular Casts 0-5 /LPF (None Seen); Urine Mucus Slight /HPF (None Seen); Urine Protein 1+ (Negative); Urine RBC 21-50 /HPF (None Seen); Urine Urobilinogen Normal (Normal); Urine WBC Clump Rare /HPF (None Seen); Urine pH 5.5 (5.0-7.0)
[2023-05-22 06:47] VITALS: O2SAT 99
[2023-05-22] MEDS: INSULIN -REGULAR HUMAN 50 UNIT/0.5 ML ML SQ SCH ×4 (07:30→20:25)
[2023-05-22] MEDS ORDERED: Levofloxacin 250mg IV 250 MG/50 ML BAG IV ONE (08:00)
[2023-05-22 08:18] VITALS: BMI 24.0
[2023-05-22] MEDS: HYDROCODONE/APAP 5/325 MG TAB PO PRN ×3 (09:54→21:48)
--- NOTE | 2023-05-22 10:21 | RAD REPORT ---
EXAM DESCRIPTION: CT - Abdomen Pelvis Wo Contrast - 05/22/2023 7:11 am CLINICAL HISTORY: ABD PAIN TECHNIQUE: Contiguous axial images obtained through the abdomen and pelvis without IV contrast. Sagi ttal and coronal reformatted images were provided. This exam was performed according to our departmental dose-optimization program, which includes autom ated exposure control, adjustment of the mA and/or kV according to patient size and/or use of iterati ve reconstruction technique. COMPARISON: May 18 FINDINGS: Lung bases: Chronic interstitial changes in the lung bases. Tiny left pleural effusion. Liver: Unremarkable Gallbladder and biliary system: Unremarkable Pancreas: Unremarkable Spleen: Unremarkable Adrenals: Unremarkable Kidneys: There is a right ureteral stent in place. Proximal end within the nondilated right renal pel vis. There is a 6 mm right renal stone. No gross hydronephrosis. No right ureteral calculi or hydroureter. Nonobstructive left renal calcifications some of which are vascular. Nonspecific bilateral perinephric stranding, which may be chronic. Gl: No obstruction. No appreciable mucosal thickening. Appendix: No findings to suggest acute appendicitis. Urinary bladder: Unremarkable Reproductive: Surgical changes in the pelvis status post prostatectomy. Lymph nodes: No pathologically enlarged lymph nodes. Peritoneum: No focal fluid collection. No free air. Vessels: Prominent atherosclerotic peripheral vascular disease. Abdominal wall: Unremarkable Bones: UnremarkableNo acute bony pathology IMPRESSION: 1. Right ureteral stent in place. There is a 6 mm right renal stone. No gross hydronep hrosis. No right ureteral calculi or hydroureter. Nonspecific bilateral perinephric stranding, which may be chronic. 2. Tiny left pleural effusion. Chronic interstitial changes in the lung bases. 3. No other significant interval change since the prior examination Electronically signed by: Mina Sanchez MD 05/22/2023 5:15 AM CDT Due to temporary technical issues with the PACS/Fluency reporting system, reports are being signed by the in house radiologist without review as a courtesy to ensure prompt reporting. The interpreting r adiologist is fully responsible for the content of the report.
--- NOTE | 2023-05-22 17:05 | EKG ---
Test Date: 2023-05-22 Test Time: 04:42:20 Traffic Maintenance Officer: RV MEASUREMENT RESULTS: Intervals: Rate: 90 IA: 214 QRSD: 98 QT: 388 QTc: 474 Alexander: P: 68 IA: 214 QRS: -24 T: 31 INTERPRETIVE STATEMENTS: Sinus rhythm with 1st degree AV block Low voltage QRS Borderline ECG No previous ECG available for comparison Electronically Signed On 05-22-23 17:04:37 CDT by Danilo Fox
--- NOTE | 2023-05-22 22:32 | P.CNS ---
Date of Consult: 05/22/23 Reason for Consult: LM Requesting Physician: Arcadio Dow Chief Complaint: Flank pain History of Present Illness: 77-year-old male with a past medical history of diabetes type 2, hypertension, CKD, CAD with 5 stents on aspirin and Plavix, history of prostate cancer cancer post EBRT over 20 years ago, s/p TURP versus radical prostatectomy with postprocedure incontinence presents to the emergency room he reports B) flank pain and bilateral lower extremity leg cramping. He reports recent ureteral stent placement by Dr. Celaya, He was discharged yesterday on Levaquin, and hydrocodone 10 for pain. He denies fever, nausea vomiting, abdominal pain, chest pain. He reported constipation yesterday, taking stool softeners having loose stools today.While inpatient state patient was seen by Dr. Fabian for nephrology and urology Dr. Celaya. Plan to admit for intractable pain, bilateral flank pain status post recent ureter ureteral stent placement. ED evaluation WBCs unremarkable, hemoglobin 9.6, hematocrit 27.9, platelet count 51, neutrophils 90.2, CMP sodium, potassium normal, acute on chronic kidney injury BUN 52 creatinine 1.60, improved from yesterday. Glucose 125 estimated GFR 44. UA pending, CT of the abdomen pelvis pending. Plan to resume IV Levaquin, consult nephrology. [id number] 03:02 This 77 yrs old Male presents to ER via EMS with complaints of Flank Pain. sp4 03:02 Old Record review - Procedure 05/18/2023 - Postoperative Diagnoses: 1. Right sp4 obstructive ureterolithiasis. 2. Right hydronephrosis. 3. Complicated urinary tract infection with SIRS, possible sepsis. 4. Altered mental status. 5. Acute kidney injury. Principal Procedures: 1. Cystoscopy. 2. Right retrograde pyelography. 3. Right ureteral stent placement. 04:00 Patient with past medical history of diabetes, hypertension, prostate cancer, kidney sp4 disease, presented to the emergency department on 05/18/2023 with right flank pain and lower back pain. Patient was found to have UTI and elevated white cell count of 25,000 hemoglobin 11.2 hematocrit 34 platelet count 129 and elevated serum potassium 5.3. CT abdomen pelvis at the day of admission revealed 6 mm calculus in the proximal right ureter resulting in moderate right hydronephrosis. Patient was subsequently admitted for complicated UTI with right proximal ureteral stone, acute kidney injury in the setting of chronic kidney disease, hyperkalemia, metabolic acidosis, hypoalbuminemia, anemia of chronic disease, and complicated UTI. Urology placed a right ureteral stent. Patient was subsequently discharged home on 06/30/2023 with p.o. levofloxacin 500 mg daily, [place] 10 as needed and prednisone. 6 mm calculus remains on the right ureter. But this is bypassed by right ureteral stent. . After discharge home patient has developed moderate to severe bilateral flank pain and also bilateral lower extremity cramps. Patient was given [place] 10 at home prior to arrival. EMS gave 15 mg IV Toradol. Patient's pain has improved. On arrival patient is incontinent of bowel and bladder. He is wearing depends. He states his pain is tolerable and does not require pain medicines at this time. Allergies metformin Allergy (Verified 05/18/23 20:06) ITCHING/ SWELLING Home medications list reviewed: Yes Home Medications: Alendronate Sodium 70 mg PO EVERY 7TH DAY 05/18/23 Clopidogrel Bisulfate [Plavix*] 75 mg PO DAILY 05/18/23 Latanoprostene Bunod [Vyzulta] 1 drop OP BEDTIME 05/18/23 Metoprolol Tartrate [Lopressor*] 25 mg PO BID 05/18/23 Simvastatin 40 mg PO BEDTIME 05/18/23 Aspirin 81 mg PO DAILY 05/19/23 Insulin Glargine,Hum.rec.anlog [Insulin Glargine] 20 units SQ BEDTIME 05/19/23 Insulin Glargine,Hum.rec.anlog [Lantus] 20 units SQ BID 05/19/23 Semaglutide [Ozempic] 0.25 mg SQ EVERY 7TH DAY 05/19/23 Hydrocodone 10/APAP 325 [[place] 10/325] 1 tab PO Q8H PRN #30 tab 05/21/23 levoFLOXacin [Levaquin] 500 mg PO DAILY #10 tab 05/21/23 predniSONE [Deltasone] 20 mg PO DAILY #5 tab 05/21/23 - Past Medical/Surgical History Diabetic: Yes -: NIDDM -: Prostate CA -: CKD -: HTN -: Hydronephrosis -: Right ureteral stone -: Complicated UTI -: Bacteremia -: 05/18/23 Right ureteral stent placement - Social History Alcohol use: No CD- Drugs: No Caffeine use: Yes Place of Residence: Home Review of Systems 10-point ROS is otherwise unremarkable Cardiovascular: Edema Physical Examination Temp Pulse Resp BP Pulse Ox 96.5 F L 86 17 169/76 H 96 05/22/23 20:00 05/22/23 20:00 05/22/23 21:48 05/22/23 20:00 05/22/23 21:48 General: In no apparent distress, Cooperative HEENT: Atraumatic Neck: Supple Respiratory: Clear to auscultation bilaterally Cardiovascular: Regular rate/rhythm, Edema Gastrointestinal: Soft and benign, Non-distended Musculoskeletal: No clubbing, No contractures Integumentary: No rashes, No cyanosis Neurological: Normal speech Laboratory Data (last 24 hrs) 05/22/23 05/22/23 03:02 03:02 WBC 7.20 Hgb 9.6 L Hct 27.9 L Plt Count 51 L Sodium 140 Potassium 4.4 BUN 52 H Creatinine 1.60 H Glucose 125 H Total Bilirubin 0.6 AST 20 ALT 21 Alkaline Phosphatase 92 Lipase 41 Imagings Data: [id number] EXAM DESCRIPTION: CT - Abdomen Pelvis Wo Contrast - 05/22/2023 7:11 am CLINICAL HISTORY: ABD PAIN TECHNIQUE: Contiguous axial images obtained through the abdomen and pelvis without IV contrast. Sagittal and coronal reformatted images were provided. This exam was performed according to our departmental dose-optimization program, which includes automated exposure control, adjustment of the mA and/or kV according to patient size and/or use of iterative reconstruction technique. COMPARISON: May 18 FINDINGS: Lung bases: Chronic interstitial changes in the lung bases. Tiny left pleural effusion. Liver: Unremarkable Gallbladder and biliary system: Unremarkable Pancreas: Unremarkable Spleen: Unremarkable Adrenals: Unremarkable Kidneys: There is a right ureteral stent in place. Proximal end within the nondilated right renal pelvis. There is a 6 mm right renal stone. No gross hydronephrosis. No right ureteral calculi or hydroureter. Nonobstructive left renal calcifications some of which are vascular. Nonspecific bilateral perinephric stranding, which may be chronic. Gl: No obstruction. No appreciable mucosal thickening. Appendix: No findings to suggest acute appendicitis. Urinary bladder: Unremarkable Reproductive: Surgical changes in the pelvis status post prostatectomy. Lymph nodes: No pathologically enlarged lymph nodes. Peritoneum: No focal fluid collection. No free air. Vessels: Prominent atherosclerotic peripheral vascular disease. Abdominal wall: Unremarkable Bones: UnremarkableNo acute bony pathology IMPRESSION: 1. Right ureteral stent in place. There is a 6 mm right renal stone. No gross hydronephrosis. No right ureteral calculi or hydroureter. Nonspecific bilateral perinephric stranding, which may be chronic. 2. Tiny left pleural effusion. Chronic interstitial changes in the lung bases. 3. No other significant interval change since the prior examination Conclusions/Impression: Stage I LM likely due to hypovolemia and complicated by an obstructing right ureter calculus CKD III with Proteinuria -No NSAIDs -Will need a urology follow up HTN with CKD -Start Metoprol BID DM II with CKD -RISS Anemia in chronic illness -Monitor H&H Case reviewed with Dr. Dow Thank you kindly for the consultation
[2023-05-23] MEDS: HYDROCODONE/APAP 5/325 MG TAB PO PRN ×3 (04:16→14:26)
[2023-05-23] MEDS ORDERED: METOPROLOL TAR 25 MG TAB PO SCH (06:00)
[2023-05-23 06:16] LABS: Absolute Lymphocytes (CBC) 0.8 K/uL (0.7-4.9); Hematocrit 25.4 % (39.6-49.0); Lymphocytes % 9.9 % (15.3-44.8); MCV 92.9 fL (80-100); MPV 9.6 fL (7.6-11.3); RBC Red Blood Cell Count 2.74 M/uL (4.33-5.43)
[2023-05-23 06:22] LABS: Platelets 63 thou/uL (152-406)
[2023-05-23 06:31] LABS: Magnesium 2.1 mg/dL (1.6-2.4); Potassium 4.8 mEq/L (3.5-5.1)
[2023-05-23] MEDS: INSULIN -REGULAR HUMAN 50 UNIT/0.5 ML ML SQ SCH ×2 (07:30→11:30)
[2023-05-23 12:16] VITALS: BP 146/70; TEMP 98.6
--- NOTE | 2023-05-23 14:31 | P.DS ---
Admission Date: 05/22/23 Discharge Date: 05/23/23 Disposition: ROUTINE DISCHARGE Discharge Condition: GOOD Reason for Admission: Flank pain Consultations: 1. Nephrology Hospital Course: DIAGNOSES: # Bilateral Flank Pain likely due to recent Ureteral Stent - resolved # Recent Admission for Escherichia Coli and Methicillin-Sensitive Staphylococcus Aureus Urinary Tract Infection with Escherichia Coli Bacteremia # Recent Admission for Right Obstructive Ureterolithiasis with Right Hydronephrosis s/p Right Ureteral Stent Placement (05/18/2023) # Thrombocytopenia - stable # Coronary Artery Disease s/p PCI x 5 # Type II Diabetes Mellitus # Hypertension # Chronic Kidney Disease Stage III # History of Prostate Cancer s/p Surgery # Anemia of Chronic Kidney Disease HOSPITAL COURSE: Mr. Jomar Diaz is a pleasant 77 year old male with a past medical history significant for coronary artery disease s/p PCI x 5, chronic kidney disease stage III, type 2 diabetes mellitus, and hypertension who was admitted to the [facility] on 05/22/2023 for bilateral flank pain. He was admitted to the Medicine service. Upon further evaluation, his vital signs were stable. His CT abdomen/pelvis revealed, "1. Right ureteral stent in place. There is a 6 mm right renal stone. No gross hydronephrosis. No right ureteral calculi or hydroureter. Nonspecific bilateral perinephric stranding, which may be chronic. 2. Tiny left pleural effusion. Chronic interstitial changes in the lung bases. 3. No other significant interval change since the prior examination." Nephrology was consulted and he was evaluated by Dr. Fabian. He has cleared him for discharge from a Nephrology standpoint. From a urologic standpoint, Dr. Celaya is currently unavailable for consultation. I spoke with his Urologist (Dr. Ocampo) and reviewed his case. He stated that this can be managed as an outpatient and he will facilitate with outpatient follow-up. I spoke with Infectious Diseases (EVELINE Redding), who saw him last admission for his bacteremia. She recommended extending his levofloxacin course by an additional 5 days for a total of 14 days. A new prescription has been sent to his pharmacy. On 05/23/2023, he was seen on rounds and deemed medically stable for discharge. He was discharged with instructions to schedule follow-up appointments with his PCP (Dr. Miranda), with Urology (Dr. Ocampo), and with Nephrology (Dr. Fabian). He was provided a prescription for levofloxacin. He and his were given the opportunity to ask questions and reported no further questions. Furthermore, all questions were answered to the best of my ability. A copy of this discharge summary will be sent to the above providers to facilitate continuity of care. Today, I personally spent 25 minutes on his case, of which greater than 50% of the time was spent in patient education, counseling, and coordination of care as described above. Vital Signs/Physical Exam: Temp Pulse Resp BP Pulse Ox 98.6 F 77 14 146/70 H 97 05/23/23 12:00 05/23/23 12:00 05/23/23 12:00 05/23/23 12:00 05/23/23 12:00 General: Alert, In no apparent distress, Oriented x3 HEENT: Atraumatic, Mucous membr. moist/pink, Sclerae nonicteric Neck: JVD not distended Respiratory: Clear to auscultation bilaterally, Normal air movement Cardiovascular: No edema, Regular rate/rhythm, Normal S1 S2, No gallops, No rubs, No murmurs Gastrointestinal: Normal bowel sounds, Soft and benign, Non-distended, No tenderness, No rebound, No guarding Musculoskeletal: No clubbing Integumentary: No rashes Neurological: Normal speech, Normal affect Laboratory Data at Discharge: WBC 7.60 thou/uL (4.3-10.9) 05/23/23 06:07 Hgb 8.7 g/dL (13.6-17.9) L D 05/23/23 06:07 Hct 25.4 % (39.6-49.0) L 05/23/23 06:07 Plt Count 63 thou/uL (152-406) L 05/23/23 06:07 Sodium 139 mEq/L (136-145) 05/23/23 06:07 Potassium 4.8 mEq/L (3.5-5.1) 05/23/23 06:07 BUN 44 mg/dL (7-18) H 05/23/23 06:07 Creatinine 1.48 mg/dL (0.70-1.30) H 05/23/23 06:07 Glucose 131 mg/dL (74-106) H 05/23/23 06:07 Magnesium 2.1 mg/dL (1.6-2.4) 05/23/23 06:07 Total Bilirubin 0.6 mg/dL (0.2-1.0) 05/22/23 03:02 AST 20 U/L (15-37) 05/22/23 03:02 ALT 21 U/L (16-61) 05/22/23 03:02 Alkaline Phosphatase 92 U/L (45-117) 05/22/23 03:02 Lipase 41 U/L (13-75) 05/22/23 03:02 Home Medications: Alendronate Sodium 70 mg PO EVERY 7TH DAY 05/18/23 Clopidogrel Bisulfate [Plavix*] 75 mg PO DAILY 05/18/23 Latanoprostene Bunod [Vyzulta] 1 drop OP BEDTIME 05/18/23 Metoprolol Tartrate [Lopressor*] 25 mg PO BID 05/18/23 Simvastatin 40 mg PO BEDTIME 05/18/23 Aspirin 81 mg PO DAILY 05/19/23 Insulin Glargine,Hum.rec.anlog [Insulin Glargine] 20 units SQ BEDTIME 05/19/23 Insulin Glargine,Hum.rec.anlog [Lantus] 20 units SQ BID 05/19/23 Semaglutide [Ozempic] 0.25 mg SQ EVERY 7TH DAY 05/19/23 Hydrocodone 10/APAP 325 [[place] 10/325*] 1 tab PO Q8H PRN #30 tab 05/21/23 predniSONE [Prednisone*] 20 mg PO DAILY #5 tab 05/21/23 levoFLOXacin [Levaquin*] 500 mg PO DAILY #5 tab 05/23/23 New Medications: levoFLOXacin [Levaquin*] 500 mg PO DAILY #5 tab Physician Discharge Instructions: 1. Please call and schedule a follow-up appointment with your PCP (Dr. Miranda) in 3-5 days - Your blood work showed anemia and low platelet count. Please repeat labs and discuss with your PCP for further evaluation. 2. Please call and schedule a follow-up appointment with Urology (Dr. Ocampo) in 3-5 days 3. Please call and schedule a follow-up appointment with Nephrology (Dr. Fabian) in 5-7 days - Please follow-up with your PCP for medication refills/adjustments Diet: Renal Activity: Ad william Followup: Kurt Miranda MD [Primary Care Provider] - WILLIE OCAMPO [OUTSIDE PHYSICIAN] - Huy Fabian DO [ACTIVE - CAN ADMIT] - Time spent managing pt's care (in minutes): 25
[2023-05-24] MEDS ORDERED: Levofloxacin500mg IV 500 MG/100 ML BAG IV SCH (09:00)
== END 2023-05-23 17:35 | disposition home or self-care (01) ==
LOC: ER 02:44 → ERHOLD 04:19 → 4TH 06:05
PROVIDERS: ADMIT Hospitalist; ATTEND Internal Medicine
DX: R10.9 Unspecified abdominal pain (principal); N20.0 Calculus of kidney; J90 Pleural effusion, not elsewhere classified; E11.9 Type 2 diabetes mellitus without complications; I10 Essential (primary) hypertension; N18.30 Chronic kidney disease, stage 3 unspecified; R80.9 Proteinuria, unspecified; D69.6 Thrombocytopenia, unspecified; N39.0 Urinary tract infection, site not specified; R78.81 Bacteremia; D63.8 Anemia in other chronic diseases classified elsewhere; N17.9 Acute kidney failure, unspecified; D63.1 Anemia in chronic kidney disease; Z95.5 Presence of coronary angioplasty implant and graft; Z79.82 Long term (current) use of aspirin; Z85.46 Personal history of malignant neoplasm of prostate; Z20.822 Contact with and (suspected) exposure to COVID-19
CPT/HCPCS: 96365; 93005; 87088; 85025 ×2; 81001; 87086; 80048; 36415 ×2; 83735; 82947 ×6; 83690; 80053; 74176; 99285; 96366; 87811; J2405; J7030; G0378 ×4